=== PATIENT | male | born 1955 | race Caucasian/White ===

== ENCOUNTER 2017-01-05 07:38 | Inpatient (IN) | payer BC, OTHER ==
[~2017-01-05] VITALS: Ht 182.9 cm; Wt 87.5 kg
[2017-01-05] VITALS (10 sets, daily range): BP systolic 122–143; BP diastolic 54–88; PULSE 69–83; RESP 20–26; TEMP 99.1–102.5; O2SAT 93–98
[~2017-01-05 07:38] MED LIST: SIMV5TAB32 PO
[2017-01-05] MEDS ORDERED: SODIUM CHLOR 0.9% 1000 ML INJ 1,000 ML IV SCH (07:52)
[2017-01-05] MEDS ORDERED: SIMV5TAB3 PO (07:55)
--- NOTE | 2017-01-05 07:59 | PD ---
HPI Chief Complaint: General Weakness Time Seen by Provider: 07:44 Travel History International Travel<30 days: No Contact w/Intl Traveler<30days: No Traveled to known affect area: No History of Present Illness HPI The patient is a 61-year-old male who presents to the emergency department for abdominal pain and generalized weakness. The patient states he had a hernia repair, bilateral inguinal, one year ago by Dr. Ludin Cueva. The patient was doing well until 2 months ago when he helped a neighbor move a couch , then felt some discomfort in the groin. He notes decreasing strength over the last 2 months with some generalized weakness. He complains of abdominal pain that starts in the epigastrium and radiates to the bilateral inguinal area. He now notes pain radiating down the right and left leg to the knee. He states he has difficulty getting up and ambulating secondary to the pain. The pain is sharp, intermittent, worse with palpation. The patient states he saw a primary physician 2 weeks ago, Dr. Jamey Ventura, who checked the hernias and told him he was "normal". The patient now notes he has weakness of legs, states he has difficulty just sitting secondary to pain in the inguinal region. 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 He denies any fever. Symptoms are moderate, possibly exacerbated after lifting a couch 2 months ago, and there are no current alleviating factors. PFSH Past Medical History High Cholesterol: Yes Diminished Hearing: No Social History Alcohol Use: Yes (OCC) Tobacco Use: No Allergies-Medications (Allergen,Severity, Reaction): Coded Allergies: No Known Allergies (Verified Adverse Reaction, Unknown, 01/05/17) Reported Meds & Prescriptions Reported Meds & Active Scripts Active Reported Simvastatin 40 Mg Tab 40 Mg PO HS Multi-Vitamin Daily (Multiple Vitamin) 1 Tab Tab 1 Tab PO DAILY Aspirin EC (Aspirin) 81 Mg Tabdr 81 Mg PO DAILY Review of Systems Except as stated in HPI: all other systems reviewed are Neg General / Constitutional: No: Fever Cardiovascular: No: Chest Pain or Discomfort Respiratory: No: Shortness of Breath Gastrointestinal: Positive: Abdominal Pain, No: Nausea, Vomiting Genitourinary: No: Dysuria Musculoskeletal: Positive: Weakness Neurologic: Positive: Weakness Physical Exam Narrative GENERAL: Awake, alert, 61-year-old male appears his stated age and is in no acute respiratory distress. SKIN: Focused skin assessment warm/dry. HEAD: Atraumatic. Normocephalic. EYES: Pupils equal and round. Pupils are 3 mm bilateral and reactive. ENT: No nasal bleeding or discharge. Mucous membranes pink and moist. NECK: Trachea midline. No JVD. CARDIOVASCULAR: Regular rate and rhythm. No murmur appreciated. RESPIRATORY: No accessory muscle use. Clear to auscultation. Breath sounds equal bilaterally. GASTROINTESTINAL: Abdomen soft, diffusely tender, pump palpation the patient will jerk upright, when palpating the epigastrium and bilateral lower inguinal regions. Genitourinary: Tenderness of the bilateral inguinal area, circumcised phallus. Both testicles are descended. Patient would not allow me to do perform inguinal hernia exam secondary to pain. MUSCULOSKELETAL: No obvious deformities. No clubbing. No cyanosis. No edema. Loss of hair on the lower extremities inferior to the knee. Positive dorsalis pedal pulses. Strength with manager case management bilateral is 4/5. Extension of the elbows and flexion of the elbows is 4/5. Abduction of the shoulders is 4/5. Shoulder shrug is 5/5. Flexion of great toes bilateral/5. Plantar flexion bilaterals 4/ 5. Extension the knees is 4/5. Knee DTRs were 2+ to 3+. Ankle DTRs were absent. NEUROLOGICAL: Awake and alert. No obvious cranial nerve deficits. Motor grossly within normal limits. Normal speech. Patient is able to move all 4 extremities. Has generalized weakness. PSYCHIATRIC: Appropriate mood and affect; insight and judgment normal. Data Data Last Documented VS Vital Signs Date Time Temp Pulse Resp B/P (MAP) Pulse Ox O2 Delivery O2 Flow Rate FiO2 01/05/17 08:57 69 20 143/88 (106) 98 Nasal Cannula 2.00 01/05/17 07:43 99.1 Orders Orders Complete Blood Count With Diff (01/05/17 07:52) Comprehensive Metabolic Panel (01/05/17 07:52) Lipase (01/05/17 07:52) Lactic Acid (01/05/17 07:52) Urinalysis - C+S If Indicated (01/05/17 07:52) Ct Abd/Pel W/O Iv Contrast (01/05/17 07:52) Iv Access Insert/Monitor (01/05/17 07:52) Ecg Monitoring (01/05/17 07:52) Oximetry (01/05/17 07:52) Morphine Inj (Morphine Inj) (01/05/17 08:00) Ondansetron Inj (Zofran Inj) (01/05/17 08:00) Sodium Chlor 0.9% 1000 Ml Inj (Ns 1000 M (01/05/17 07:52) Sodium Chloride 0.9% Flush (Ns Flush) (01/05/17 08:00) Electrocardiogram (01/05/17 07:52) Act Partial Throm Time (Ptt) (01/05/17 07:59) Prothrombin Time / Inr (Pt) (01/05/17 07:59) Ct Brain W/O Iv Contrast(Rout) (01/05/17 ) Lumbar Puncture (01/05/17 ) Vital Signs (Adult) .On admission (01/05/17 08:24) Notify Radiology (01/05/17 08:24) Csf Cell Count + Differential (01/05/17 08:24) Glucose, Csf (01/05/17 08:24) Total Protein, Csf (01/05/17 08:24) Csf Culture And Gram Stain (01/05/17 08:24) Westergren Sedimentation Rate (01/05/17 08:44) Creatine Kinase (Cpk) (01/05/17 07:45) C-Reactive Protein (Crp) (01/05/17 07:45) Vital Signs (Adult) .As directed (01/05/17 10:22) Activity Bed Rest (01/05/17 10:22) Notify Radiology (01/05/17 10:22) ^ Encourage Fluids (01/05/17 10:22) Anticoagulant Alert (01/05/17 10:22) Diet Regular Basic (01/05/17 Lunch) Admit Order (Ed Use Only) (01/05/17 11:36) Consult Neurology (01/05/17 ) Labs Laboratory Tests Test 01/05/17 07:45 01/05/17 10:04 White Blood Count 9.5 TH/MM3 Red Blood Count 4.60 MIL/MM3 Hemoglobin 13.7 GM/DL Hematocrit 39.7 % Mean Corpuscular Volume 86.3 FL Mean Corpuscular Hemoglobin 29.9 PG Mean Corpuscular Hemoglobin Concent 34.6 % Red Cell Distribution Width 12.7 % Platelet Count 272 TH/MM3 Mean Platelet Volume 7.9 FL Neutrophils (%) (Auto) 84.0 % Lymphocytes (%) (Auto) 5.5 % Monocytes (%) (Auto) 9.4 % Eosinophils (%) (Auto) 0.8 % Basophils (%) (Auto) 0.3 % Neutrophils # (Auto) 8.0 TH/MM3 Lymphocytes # (Auto) 0.5 TH/MM3 Monocytes # (Auto) 0.9 TH/MM3 Eosinophils # (Auto) 0.1 TH/MM3 Basophils # (Auto) 0.0 TH/MM3 CBC Comment DIFF FINAL Differential Comment Erythrocyte Sedimentation Rate 81 mm/hr Prothrombin Time 11.4 SEC Prothromb Time International Ratio 1.0 RATIO Activated Partial Thromboplast Time 29.7 SEC Blood Urea Nitrogen 16 MG/DL Creatinine 1.08 MG/DL Random Glucose 155 MG/DL Total Protein 7.5 GM/DL Albumin 2.9 GM/DL Calcium Level 8.7 MG/DL Alkaline Phosphatase 270 U/L Aspartate Amino Transf (AST/SGOT) 63 U/L Alanine Aminotransferase (ALT/SGPT) 133 U/L Total Bilirubin 1.2 MG/DL Sodium Level 136 MEQ/L Potassium Level 3.9 MEQ/L Chloride Level 101 MEQ/L Carbon Dioxide Level 25.3 MEQ/L Anion Gap 10 MEQ/L Estimat Glomerular Filtration Rate 70 ML/MIN Lactic Acid Level 1.3 mmol/L Total Creatine Kinase 68 U/L C-Reactive Protein 17.00 MG/DL Lipase 166 U/L CSF Volume (Tube 1) 3.0 ML CSF Supernatant Color (tube 1) CLEAR CSF Gross Blood (Tube 1) TRACE CSF Volume (Tube 2) 3.0 ML CSF Supernatant Color (tube 2) CLEAR CSF Gross Blood (Tube 2) 0 CSF Volume (Tube 3) 3.0 ML CSF Supernatant Color (tube 3) CLEAR CSF Gross Blood (Tube 3) TRACE CSF Volume (Tube 4) 7.9 ML CSF Supernatant Color (tube 4) CLEAR CSF Gross Blood (Tube 4) 0 CSF WBC (Tube 4) 2 /MM3 CSF RBC (Tube 4) 59 /MM3 CSF Neutrophils 7 % CSF Lymphocytes 67 % CSF Monocytes 27 % CSF Glucose 64 MG/DL CSF Total Protein 51.4 MG/DL MDM Medical Decision Making Medical Screen Exam Complete: Yes Emergency Medical Condition: Yes Medical Record Reviewed: Yes Interpretation(s) EKG reveals normal sinus rhythm with a rate 81. No ischemic changes or ectopy noted. CT of the abdomen and pelvis reveals bibasilar atelectatic changes with fluid infiltrate. isolated gallstone in the gallbladder lumen. ct findings prior mesh repair possibly for bilateral inguinal hernia or lower and tear abdominal wall hernia. mild prominence of the prostate. CT of the brain reveals findings of an old lacunar type infarct in the anterior aspect the left external capsule. nothing acute. Differential Diagnosis Differential diagnoses includes hypokalemia, hyperkalemia, Guillain [place], neurologic disorder, inguinal hernia, somatization. Narrative Course IV was established, labs are drawn and sent, and the patient was placed on cardiac telemetry monitoring and continuous pulse oximetry monitoring. Electrolytes and lactic gas were sent to lab. CT of the abdomen and pelvis was performed. CT the brain was also obtained. I had a discussion with the states the patient received an influenza vaccination 2 weeks ago and his symptoms significantly progressed. The states the patient had difficulty sitting up in bed, was lying in bed all day yesterday, and was unable to dress himself this morning. The had to help the patient dressed himself. She also states that times the patient appears to have had some shortness of breath. Physical examination does reveal weakness of the upper and lower extremities, unsure if this is related to possible underlying myositis, polymyalgia rheumatica, versus neurologic disorder such as Guillain [place]. Therefore, interventional radiology was consult of her lumbar puncture to evaluate for pleocytosis I discussed the patient with the on-call neurologist, Dr. Hart, and 9:50 AM who will evaluate the patient in the emergency department after the patient returns from interventional radiology for the lumbar puncture. The patient's sedimentation rate was elevated at 81, CRP is elevated greater than 17. CK was 68, I doubt myositis. With elevated sedimentation rate and CRP , patient could have polymyalgia rheumatica versus Guillain [place]. The patient's protein on lumbar puncture was 51.4, slightly elevated. The patient will be evaluated by neurology and will be admitted. Physician Communication Physician Communication The on-call media relations director was paged for admission. I discussed the patient with Dr. Hampton under who agrees with admission to Dr. Small. Diagnosis Primary Impression: Generalized weakness Admitting Information Admitting Physician Requests: Admit Condition: Stable Kwasi Marcelino MD Jan 05, 2017 07:59
[2017-01-05] MEDS ORDERED: MORPHINE SULFATE 4 MG/ML INJ IV PUSH ONE (08:00)
[2017-01-05] MEDS ORDERED: ONDANSETRON HCL 4 MG/2 ML VIAL IVP ONE (08:00)
[2017-01-05 08:24] LABS: BASOPHIL % 0.3 % (0.0-2.0); EOSINOPHIL # 0.1 TH/MM3 (0-0.4); EOSINOPHIL % 0.8 % (0.0-4.0); HEMATOCRIT 39.7 % (39.0-51.0); HEMO FLAGS DIFF FINAL; LYMPH % 5.5 % (9.0-44.0); LYMPHOCYTE # 0.5 TH/MM3 (1.0-4.8); MEAN CELL VOLUME 86.3 FL (80.0-100.0); MEAN CORPUSCULAR HEMOGLOBIN 29.9 PG (27.0-34.0); MEAN CORPUSCULAR HGB CONC 34.6 % (32.0-36.0); MONO % 9.4 % (0.0-8.0); PLATELET COUNT 272 TH/MM3 (150-450); RED CELL DISTRIBUTION WIDTH 12.7 % (11.6-17.2); WHITE BLOOD COUNT 9.5 TH/MM3 (4.0-11.0)
[2017-01-05 08:34] LABS: ANION GAP 10 MEQ/L (5-15); AST (GOT) 63 U/L (15-37); BICARBONATE 25.3 MEQ/L (21.0-32.0); BLOOD UREA NITROGEN 16 MG/DL (7-18); CHLORIDE 101 MEQ/L (98-107); GLOMERULAR FILTRATION RATE 70 ML/MIN (>89); POTASSIUM 3.9 MEQ/L (3.5-5.1); SODIUM (NA) 136 MEQ/L (136-145)
[2017-01-05 08:38] LABS: ALKALINE PHOSPHATASE 270 U/L (45-117); ALT (GPT) 133 U/L (12-78); TOTAL BILIRUBIN ADULT 1.2 MG/DL (0.2-1.0)
[2017-01-05 08:41] LABS: APTT (PATIENT) 29.7 SEC (24.3-30.1); PROTHROMBIN TIME - PATIENT 11.4 SEC (9.8-11.6)
--- NOTE | 2017-01-05 08:51 | RADRPT ---
EXAM DATE/TIME: 01/05/2017 08:09 [facility] COMPARISON: No previous studies available for comparison. INDICATIONS : Lower abdominal pain ORAL CONTRAST: No oral contrast ingested. RADIATION DOSE: 10.52 CTDIvol (mGy) MEDICAL HISTORY : Gastroesophageal reflux disease. SURGICAL HISTORY : bilateral hernia repair ENCOUNTER: Initial ACUITY: 3 days PAIN SCALE: 5/10 LOCATION: Bilateral lower quadrant TECHNIQUE: Volumetric scanning of the abdomen and pelvis was performed. Using automated exposure control and ad justment of the mA and/or kV according to patient size, radiation dose was kept as low as reasonably achievable to obtain optimal diagnostic quality images. DICOM format image data is available electro nically for review and comparison. FINDINGS: LOWER LUNGS: Bibasilar atelectatic changes. No confluent infiltrate. LIVER: Homogeneous density without lesion. There is no dilation of the biliary tree. Single calcified galls tone identified near the gallbladder fundus. SPLEEN: Normal size without lesion. PANCREAS: Within normal limits. KIDNEYS: Normal in size and shape. There is no mass, stone, or hydronephrosis. ADRENAL GLANDS: Within normal limits. VASCULAR: There is no aortic aneurysm. BOWEL/MESENTERY: The stomach, small bowel, and colon demonstrate no acute abnormality. There is no free intraperitone al air or fluid. ABDOMINAL WALL: Findings of prior mesh repair presumably for lower anterior or inguinal hernia. RETROPERITONEUM: There is no lymphadenopathy. BLADDER: No wall thickening or mass. REPRODUCTIVE: Mild prominence of the prostate at 4.7 cm. INGUINAL: There is no lymphadenopathy or hernia. MUSCULOSKELETAL: Very mild dextroscoliosis of the thoracolumbar spine. CONCLUSION: 1. Bibasilar atelectatic changes with no confluent infiltrate. 2. Isolated gallstone in the gallbladder lumen. 3. CT findings no prior mesh repair possibly for bilateral inguinal hernia or lower anterior abdomina l wall hernia. 4. Mild prominence of the prostate Cristo Choudhury MD on January 05, 2017 at 8:39 Board Certified Radiologist. This report was verified electronically.
--- NOTE | 2017-01-05 08:53 | RADRPT ---
EXAM DATE/TIME: 01/05/2017 08:12 [facility] COMPARISON: No previous studies available for comparison. INDICATIONS : Weakness RADIATION DOSE: 50.69 CTDIvol (mGy) MEDICAL HISTORY : Gastroesophageal reflux disease. SURGICAL HISTORY : None. ENCOUNTER: Initial ACUITY: 3 days PAIN SCALE: 0/10 LOCATION: cranial TECHNIQUE: Multiple contiguous axial images were obtained of the head. Using automated exposure control and adj ustment of the mA and/or kV according to patient size, radiation dose was kept as low as reasonably a chievable to obtain optimal diagnostic quality images. DICOM format image data is available electro nically for review and comparison. FINDINGS: CEREBRUM: The ventricles are normal for age. Focal low density area in the anterior aspect of the left external capsule may represent old lacunar type infarct. No evidence of midline shift, mass lesion, hemorrhag e or acute infarction. No extra-axial fluid collections are seen. POSTERIOR FOSSA: The cerebellum and brainstem are intact. The 4th ventricle is midline. The cerebellopontine angle i s unremarkable. EXTRACRANIAL: The visualized portion of the orbits is intact. SKULL: The calvaria is intact. No evidence of skull fracture. CONCLUSION: 1. 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 2. Nothing acute. Cristo Choudhury MD on January 05, 2017 at 8:49 Board Certified Radiologist. This report was verified electronically.
[2017-01-05] MEDS ORDERED: ASPI81TA23 PO (08:59)
[2017-01-05] MEDS ORDERED: MULT-65 PO (08:59)
[2017-01-05] MEDS ORDERED: SIMV40TA PO (09:00)
[2017-01-05 10:08] LABS: CREATINE KINASE 68 U/L (39-308)
--- NOTE | 2017-01-05 10:25 | PD.RAD ---
Post Procedure Progress Note Pre Procedure Diagnosis: (1) Generalized weakness Post Procedure Diagnosis: (1) Generalized weakness Procedure Date: Jan 05, 2017 Supervising Radiologist: Cristo Choudhury Proceduralist/Assist: Dulce Aguirre, RT(R), Sandi Pace RT(R)(CV) Anesthesia: Local Plan of Activity Patient to Unit: Other (ED) Patient Condition: Good See PACS Report for procedural detail/treatment Spinal Procedure Lumbar Puncture L3-L4 Fluid Removal (CCs): 17 Fluid Description: Clear Puncture Time: 10:03 Findings: OP: 15 cmH2O Cristo Choudhury MD Jan 05, 2017 10:25
[2017-01-05 11:15] LABS: CSF LYMPHOCYTES 67 %; CSF MONOCYTES 27 %; CSF NEUTROPHILS 7 %; GROSS BLOOD TUBE #1 TRACE (0); SUPERNATE COLOR TUBE #1 CLEAR (CLEAR); SUPERNATE COLOR TUBE #2 CLEAR (CLEAR)
[2017-01-05 11:16] LABS: GROSS BLOOD TUBE #2 0 (0); GROSS BLOOD TUBE #3 TRACE (0); GROSS BLOOD TUBE #4 0 (0); SUPERNATE COLOR TUBE #3 CLEAR (CLEAR); SUPERNATE COLOR TUBE #4 CLEAR (CLEAR); VOLUME TUBE # 4 7.9 ML; WBC TUBE #4 2 /MM3 (0-10)
[2017-01-05] MEDS ORDERED: GLUCAGON 1 MG/ML VIAL OTHER PRN (11:45)
[2017-01-05] MEDS: INSULIN NovoLIN REGULAR SUPPLEMENTAL SCALE SQ SCH ×3 (11:45→23:45)
[2017-01-05] MEDS: RESP: ALBUTEROL 2.5 MG/IPRATROPIUM 0.5 MG NEB (SCH) INH (11:45)
[2017-01-05] MEDS ORDERED: DEXTROSE 50% IN WATER 50 ML VIAL(D50) IV PUSH PRN (11:45)
[2017-01-05] MEDS ORDERED: CHLORHEXIDINE GLUCONATE 2 % 1 PACK (2 CLOTHS) TOP PRN (11:45)
[2017-01-05] MEDS ORDERED: MISCELLANEOUS NURSING INFORMATION XX SCH (11:45)
[2017-01-05] MEDS: SODIUM CHLOR 0.9% 1000 ML INJ 1,000 ML IV SCH (11:59)
[2017-01-05] MEDS: PANTOPRAZOLE SODIUM 40 MG VIAL IV PUSH SCH (13:00)
--- NOTE | 2017-01-05 13:39 | MH ---
cc: APARNA OLIVEIRA M.D. DATE OF ADMISSION: 01/05/2017 DATE OF : 1955 HISTORY OF PRESENT ILLNESS The patient is a 61-year-old male with a past medical history of hyperlipidemia, status post hernia repair one year ago by Dr. Cueva. He presented to [facility] ED with generalized weakness, fatigue and abdominal pain for two months. He was doing well until two months ago when he helped a neighbor move a couch and then felt some discomfort in the groin. The patient also noted decreasing strength for the past two months. He complains of epigastric pain radiating to the bilateral inguinal area. The patient denies any nausea or vomiting. He reports feeling pain approximately 20 minutes after eating. He denies any change in appetite, however, the food that he eats does not taste good anymore. He reports a 20-25 pounds weight loss in two months as well. The patient denies any cough or constitutional symptoms. He has difficulty getting up and ambulating secondary to pain. He went to see his primary care doctor two weeks ago who checked his hernias and told him it was fine. 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 There is no history of any fever or leukocytosis. His laboratory data was significant for elevated C-reactive protein at 17.0. The lactic acid level measured at 1.3. A lumbar puncture was performed by interventional radiology which showed clear CSF, 2 wbc's, mild elevated total protein at 51.4, and normal CSF glucose level. A CT scan of the brain showed old lacunar type infarct, otherwise no acute intracranial findings. Due to abdominal pain a CT of the abdomen and pelvis was obtained which showed bibasilar atelectatic changes with no confluent infiltrates and isolated gallstone in the gallbladder lumen. He is currently on 2 liters of oxygen with saturation 97%. Blood pressure is 122/72. In the ER he was given morphine for pain, Zofran, and one liter bolus of normal saline. PAST MEDICAL HISTORY Hyperlipidemia. PAST SURGICAL HISTORY 1. Previous hernia repair one year ago. 2. Carpal tunnel surgery. 3. Multiple orthopedic surgeries. ALLERGIES No known drug allergies. MEDICATIONS Current medications: 1. Simvastatin. 2. Multivitamin. 3. Aspirin. FAMILY HISTORY Noncontributory. REVIEW OF SYSTEMS As per HPI. The rest of the review of systems unremarkable. PHYSICAL EXAMINATION GENERAL: A 61-year-old male lying in bed in no acute respiratory distress. VITAL SIGNS: Temperature 99.1, pulse 74, respiratory rate 20, blood pressure 122/72. Saturation 97% on 2 liters of oxygen. HEENT: Atraumatic, normocephalic. Pupils equal, round and reactive to light and accommodation. Extraocular muscles intact. Conjunctiva pink. Non-icteric sclera. Oral mucosa within normal. NECK: Supple. No JVD, adenopathy or thyromegaly. Trachea in the midline. CARDIOVASCULAR: Regular rate and rhythm. Normal S1, S2. No murmurs, rubs or gallops noted. PULMONARY: Bilateral equal entry. No rales or wheezing. ABDOMEN: Soft, nontender, no distention. Positive bowel sounds. EXTREMITIES: No cyanosis, clubbing or edema. NEUROLOGIC: No focal sensory deficit. Strength is 4/5 upper extremities, 5/5 lower extremities. Normal sensation. EKG Normal sinus rhythm, rate 81 beats per minute. IMAGING CT brain showed no acute intracranial findings. CT abdomen and pelvis showed bibasilar atelectatic changes with no confluent infiltrate; isolated gallstone in the gallbladder lumen. LABORATORY WBC 9.5, hemoglobin 13.7, hematocrit 39, platelet count 272. ESR 881. C-reactive protein 17. Total protein 68, alk phos 270, AST 263, ALT 133, total bilirubin 1.2, sodium 136, potassium 3.9, chloride 101, CO2 25, BUN 16, creatinine 1.08, glucose 155, lactic acid 1.3. INR 1, PT 11.4, PTT 29.7. Lumbar puncture showed clear CSF, 64 glucose, total protein 51.4, 2 wbc's, 59 rbc's. IMPRESSION 1. Generalized weakness. 2. Chronic abdominal pain. 3. Status post hernia repair. 4. Elevated liver enzymes. 5. History of hyperlipidemia. 6. Elevated ESR and C-reactive protein. PLAN/RECOMMENDATIONS 1. Monitor neuro status and avoid any sedatives. The patient is awake and alert. CT scan of the brain in the ED is negative for acute intracranial findings. Status post lumbar puncture by interventional radiology showed clear CSF, normal CSF glucose and mild elevated total protein at 51.4 with 2 wbc's. Follow-up on CSF culture. Neurology was consulted by ED. Will proceed with MRI of the spine to rule out myelopathy/acute process. Check ESR, JOSE and RF. 2. Continue with oxygen, maintain sats above 92%. 3. Bronchodilators in the form of DuoNeb q.6h. plus q.2h. p.r.n. for shortness of breath. 4. Monitor heart rate and blood pressure closely and maintain MAP greater than 65 mmHg. Lactic acid level measured at 1.3. Place on IV fluids, NS at 84 mL an hour. Hold simvastatin for now given elevated liver enzymes. 5. Monitor renal function, I's and O's, and electrolyte replacement per protocol. The patient was given one liter bolus of NS in the ED. Will continue with IV fluids as stated above. 6. Will hold off on antibiotics at this time as there is no evidence of any infectious process. Follow-up on CSF culture. Monitor for signs of infections which include fever and WBC. Follow-up on urinalysis. Check CXR. 7. Sliding scale insulin with Accu-Chek to maintain euglycemia. 8. Place on Protonix 40 mg daily for GI prophylaxis. 9. Monitor LFTs. Will check ultrasound of the liver. 10. Consult Dr. Cueva from general surgery for chronic abdominal pain. The patient is status post hernia repair about one year ago. 11. GI prophylaxis with Protonix 40 mg daily, and DVT prophylaxis with SCDs. Will hold off on chemical anticoagulation prophylaxis for now as the patient just had an LP done. Will start DVT prophylaxis in 24 hours. 12. Further recommendations will be based on the hospital course. MD ANTONIETA Bolden/VICTORIA /1:00 PM /1:18 PM LEO
--- NOTE | 2017-01-05 13:53 | RADRPT ---
EXAM DATE/TIME: 01/05/2017 12:36 [facility] COMPARISON: No previous studies available for comparison. INDICATIONS : Weakness. CONTRAST: 16 cc Omniscan (gadodiamide) IV MEDICAL HISTORY : Hypercholesterolemia. SURGICAL HISTORY : Inguinal hernia repair. Carpel tunnel sx., Foot sx. ENCOUNTER: Initial ACUITY: 1 week PAIN SCORE: 4/10 LOCATION: Bilateral lower back region. TECHNIQUE: Multiplanar, multisequence MRI examination of the cervical spine was performed. FINDINGS: VERTEBRAE: Normal vertebral body height. Homogeneous marrow signal. ALIGNMENT: No evidence of subluxation. CORD: Normal configuration and signal. POST FOSSA: The cerebellar tonsils are normal in position. POST-CONTRAST: There is subtle enhancement within the interspinous ligaments from C2-C5 in nonspecific fashion. \ C2-C3: The thecal sac has a normal configuration. There is no evidence of disc herniation or spinal canal stenosis. The neural foramina are patent bilaterally. C3-C4: The thecal sac has a normal configuration. There is no evidence of disc herniation or spinal canal s tenosis. The neural foramina are patent bilaterally. C4-C5: The thecal sac has a normal configuration. There is no evidence of disc herniation or spinal canal s tenosis. The neural foramina are patent bilaterally. C5-C6: The thecal sac has a normal configuration. There is no evidence of disc herniation or spinal canal s tenosis. The neural foramina are patent bilaterally. C6-C7: The thecal sac has a normal configuration. There is no evidence of disc herniation or spinal canal s tenosis. The neural foramina are patent bilaterally. C7-T1: The thecal sac has a normal configuration. There is no evidence of disc herniation or spinal canal s tenosis. The neural foramina are patent bilaterally. CONCLUSION: There is subtle enhancement interspinous ligaments between C2-C3, C3-C4, C4-C5. Controlled flexion e xtension films may be of benefit to exclude ligamentous instability. present as well. This can be s een with ligamentous injury. This would be very unusual place for infection. No other abnormalities appreciated. Tiago Cary MD FACR on January 05, 2017 at 13:45 Board Certified Radiologist. This report was verified electronically.
--- NOTE | 2017-01-05 14:01 | RADRPT ---
EXAM DATE/TIME: 01/05/2017 12:36 [facility] COMPARISON: No previous studies available for comparison. INDICATIONS : Weakness. CONTRAST: 16 cc Omniscan (gadodiamide) IV MEDICAL HISTORY : Hypercholesterolemia. SURGICAL HISTORY : Inguinal hernia repair. Carpal tunnel, Foot sx. ENCOUNTER: Initial ACUITY: 1 week PAIN SCORE: 4/10 LOCATION: Bilateral lower back. TECHNIQUE: Multiplanar multisequence MRI of the thoracic spine was performed. FINDINGS: VERTEBRA: Normal vertebral body height. Homogeneous marrow signal. ALIGNMENT: Normal. CORD: Normal position and configuration. POST CONTRAST: No abnormal areas of contrast enhancement seen. T1-T2: Normal. T2-T3: The thecal sac has a normal diameter. No evidence of disc bulge or protrusion. T3-T4: The thecal sac has a normal diameter. No evidence of disc bulge or protrusion. T4-T5: The thecal sac has a normal diameter. No evidence of disc bulge or protrusion. T5-T6: The thecal sac has a normal diameter. No evidence of disc bulge or protrusion. T6-T7: The thecal sac has a normal diameter. No evidence of disc bulge or protrusion. T7-T8: The thecal sac has a normal diameter. No evidence of disc bulge or protrusion. T8-T9: The thecal sac has a normal diameter. No evidence of disc bulge or protrusion. T9-T10: The thecal sac has a normal diameter. No evidence of disc bulge or protrusion. T10-T11: The thecal sac has a normal diameter. No evidence of disc bulge or protrusion. T11-T12: The thecal sac has a normal diameter. No evidence of disc bulge or protrusion. T12-L1: The thecal sac has a normal diameter. No evidence of disc bulge or protrusion. CONCLUSION: 1. Tiny bilateral pleural effusions and bibasilar consolidations. 2. Central canal is patent. No vertebral compression deformities. Javed Hawkins Jr., MD on January 05, 2017 at 13:55 Board Certified Radiologist. This report was verified electronically.
--- NOTE | 2017-01-05 14:10 | RADRPT ---
EXAM DATE/TIME: 01/05/2017 12:36 [facility] COMPARISON: No previous studies available for comparison. INDICATIONS : Weakness. CONTRAST: 16 cc Omniscan (gadodiamide) IV MEDICAL HISTORY : Hypercholesterolemia. SURGICAL HISTORY : Inguinal hernia repair. Carpel tunnel sx., Foot sx. ENCOUNTER: Initial ACUITY: 1 week PAIN SCORE: 4/10 LOCATION: Bilateral lower back region. TECHNIQUE: Multiplanar multisequence MRI of the lumbar spine was performed with and without contrast. FINDINGS: There is a transitional segment with partial lumbarization of the S1 level. VERTEBRAE: Homogeneous signal. Normal alignment. CONUS: Normal level and configuration. POST CONTRAST: No abnormal areas of contrast enhancement are seen. T12-L1: The thecal sac has a normal diameter. No evidence of disc bulge or protrusion. The neural foramina are patent bilaterally. L1-L2: The thecal sac has a normal diameter. No evidence of disc bulge or protrusion. The neural foramina are patent bilaterally. L2-L3: The thecal sac has a normal diameter. No evidence of disc bulge or protrusion. The neural foramina are patent bilaterally. L3-L4: The thecal sac has a normal diameter. No evidence of disc bulge or protrusion. The neural foramina are patent bilaterally. L4-L5: The thecal sac has a normal diameter. No evidence of disc bulge or protrusion. The neural foramina are patent bilaterally. L5-S1: The thecal sac has a normal diameter. No evidence of disc bulge or protrusion. The neural foramina are patent bilaterally. CONCLUSION: 1. No acute abnormality. Javed Hawkins Jr., MD on January 05, 2017 at 14:02 Board Certified Radiologist. This report was verified electronically.
[2017-01-05] MEDS ORDERED: GADODIAMIDE PF 287 MG/ML 5 ML VIAL (for RAD MRI) IVCONTRAST ONE (14:20)
--- NOTE | 2017-01-05 15:09 | RADRPT ---
EXAM DATE/TIME: 01/05/2017 13:55 [facility] COMPARISON: No previous studies available for comparison. INDICATIONS : Increased lab values. MEDICAL HISTORY : Hypercholesterolemia. Gastroesophageal reflux disease. SURGICAL HISTORY : Hernia repair. ENCOUNTER: Initial ACUITY: 2 months PAIN SCORE: 4/10 LOCATION: Bilateral upper quadrant MEASUREMENTS: LIVER: 18.2 cm length COMMON DUCT: Non-visualized RIGHT KIDNEY: 13.1 x 5.3 x 5.2 cm SPLEEN: 14.3 cm length FINDINGS: LIVER: The liver appears mildly enlarged. There is heterogeneous echotexture. No mass is seen. No intrahepat ic biliary ductal dilation is identified. COMMON DUCT: No intraluminal mass or stone visualized. GALLBLADDER: The examination demonstrates a 3 mm cholesterol polyp adherent to the gallbladder wall. PANCREAS: The visualized portions are within normal limits. RIGHT KIDNEY: No hydronephrosis, stone or mass. SPLEEN: There is splenomegaly. The echotexture the spleen is within normal limits. CONCLUSION: 1. Hepatosplenomegaly. 2. Heterogeneous echotexture of the liver but no focal mass seen. No significant biliary ductal dilat ion identified. 3. 3 mm cholesterol polyp adherent to the gallbladder wall. Mike Cary MD on January 05, 2017 at 15:06 Board Certified Radiologist. This report was verified electronically.
--- NOTE | 2017-01-05 16:11 | PD.CONS ---
HPI Service General surgery Consult Requested By Dr. Hampton Reason for Consult Abdominal pain, history of ventral hernia repair Primary Care Physician Jamey Ventura MD History of Present Illness The patient is a 61-year-old male who complains of severe periumbilical abdominal pain radiating to the mid and bilateral lower back, and bilateral groin pain radiating to the scrotum. The patient has a history of laparoscopic bilateral inguinal hernia repair with mesh by Dr. Cueva about 1 year ago. He did well postoperatively until 2 months ago when he was lifting a couch and felt a tear in the right groin. Ever since that time, he has had the symptoms as listed above. He has also had chills. He reports 25 pound weight loss although he has been eating and is not trying to lose weight. He has had malaise and generalized weakness to the point where yesterday he passed out in the shower until his found him. The pain radiates down both legs. He has had normal bowel movements and denies nausea or vomiting. He has been unable to work for the last week. He is usually very active. On evaluation he was noted to have left shift on CBC, elevated CRP, and elevated sedimentation rate. LFTs are elevated. CT abdomen and pelvis shows gallstone. A lumbar puncture as well as total spine MRI and head CT has been performed. Review of Systems Constitutional: COMPLAINS OF: Diaphoretic episodes, Fatigue, Fever, Weight loss , Chills Eyes: DENIES: Eye inflammation, Eye pain Respiratory: DENIES: Cough, Shortness of breath Cardiovascular: COMPLAINS OF: Syncope, DENIES: Chest pain, Palpitations Gastrointestinal: COMPLAINS OF: Abdominal pain, DENIES: Nausea, Vomiting Genitourinary: COMPLAINS OF: Testicular Pain Musculoskeletal: COMPLAINS OF: Muscle aches Integumentary: DENIES: Pruritus, Rash Neurologic: DENIES: Localized weakness, Seizures Past Family Social History Past Medical History Hyperlipidemia Past Surgical History Bilateral left Inguinal hernia with mesh Carpal tunnel Orthopedic surgeries Reported Medications Reported Meds & Active Scripts Active Reported Simvastatin 40 Mg Tab 40 Mg PO HS Multi-Vitamin Daily (Multiple Vitamin) 1 Tab Tab 1 Tab PO DAILY Aspirin EC (Aspirin) 81 Mg Tabdr 81 Mg PO DAILY Allergies: Coded Allergies: No Known Allergies (Verified Allergy, Unknown, 01/05/17) Active Ordered Medications Current Medications Medications (Trade) Dose Ordered Sig/Karishma Route Start Time Stop Time Status Last Admin (NS Flush) 2 ml UNSCH PRN IV FLUSH 01/05/17 08:00 (Duoneb Neb) 1 ampule Q6HR NEB INH 01/05/17 11:45 (Duoneb Neb) 1 ampule Q2HR NEB PRN INH 01/05/17 11:45 Miscellaneous Information 1 Q361D XX 01/05/17 11:45 (Chlorhexidine 2% Cloth) 3 pack Taper DAILY@04 TOP 01/06/17 04:00 01/02/18 03:59 (Chlorhexidine 2% Cloth) 3 pack UNSCH PRN TOP 01/05/17 11:45 Sodium Chloride 1,000 ml @ 84 mls/hr [id number] IV 01/05/17 11:45 01/05/17 11:59 (D50w (Vial) Inj) 50 ml UNSCH PRN IV PUSH 01/05/17 11:45 (Glucagon Inj) 1 mg UNSCH PRN OTHER 01/05/17 11:45 (NovoLIN R SUPPLEMENTAL SCALE) 1 Q6H SQ 01/05/17 11:45 (Protonix Inj) 40 mg Q24H IV PUSH 01/05/17 13:00 Family History Noncontributory Social History Denies IV use. Remote history of having tattoos. No alcohol or tobacco use. 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 Physical Exam Vital Signs Vital Signs Date Time Temp Pulse Resp B/P (MAP) Pulse Ox O2 Delivery O2 Flow Rate FiO2 01/05/17 12:39 01/05/17 11:57 74 20 122/72 (89) 97 Nasal Cannula 2.00 01/05/17 08:57 69 20 143/88 (106) 98 Nasal Cannula 2.00 01/05/17 07:57 20 95 Nasal Cannula 2.00 01/05/17 07:49 80 20 96 Nasal Cannula 2.00 01/05/17 07:43 99.1 83 20 143/83 (103) 93 Physical Exam GENERAL: Awake and alert. No acute distress. Cooperative. HEAD: Normocephalic. Atraumatic. EYES: Pupils equal round and reactive to light bilaterally. No scleral icterus. ENT: Moist oral mucosa. NECK: Trachea midline. CHEST: Lungs clear to auscultation bilaterally with no wheezing or rhonchi. No respiratory distress. CARDIOVASCULAR: Regular rate and rhythm. ABDOMEN: Exquisite tenderness to palpation in periumbilical and bilateral lower abdomen and bilateral groins. Seems to be hypersensitive in these areas. I don 't think this is true peritonitis. No guarding. No hernias. Nondistended EXTREMITIES: No cyanosis or edema. SKIN: Warm, dry, nonjaundiced. Laboratory Laboratory Tests Test 01/05/17 07:45 01/05/17 10:04 01/05/17 15:00 White Blood Count 9.5 Red Blood Count 4.60 Hemoglobin 13.7 Hematocrit 39.7 Mean Corpuscular Volume 86.3 Mean Corpuscular Hemoglobin 29.9 Mean Corpuscular Hemoglobin Concent 34.6 Red Cell Distribution Width 12.7 Platelet Count 272 Mean Platelet Volume 7.9 Neutrophils (%) (Auto) 84.0 Lymphocytes (%) (Auto) 5.5 Monocytes (%) (Auto) 9.4 Eosinophils (%) (Auto) 0.8 Basophils (%) (Auto) 0.3 Neutrophils # (Auto) 8.0 Lymphocytes # (Auto) 0.5 Monocytes # (Auto) 0.9 Eosinophils # (Auto) 0.1 Basophils # (Auto) 0.0 CBC Comment DIFF FINAL Differential Comment Erythrocyte Sedimentation Rate 81 Prothrombin Time 11.4 Prothromb Time International Ratio 1.0 Activated Partial Thromboplast Time 29.7 Blood Urea Nitrogen 16 Creatinine 1.08 Random Glucose 155 Total Protein 7.5 Albumin 2.9 Calcium Level 8.7 Alkaline Phosphatase 270 Aspartate Amino Transf (AST/SGOT) 63 Alanine Aminotransferase (ALT/SGPT) 133 Total Bilirubin 1.2 Sodium Level 136 Potassium Level 3.9 Chloride Level 101 Carbon Dioxide Level 25.3 Anion Gap 10 Estimat Glomerular Filtration Rate 70 Lactic Acid Level 1.3 Total Creatine Kinase 68 C-Reactive Protein 17.00 Lipase 166 CSF Volume (Tube 1) 3.0 CSF Supernatant Color (tube 1) CLEAR CSF Gross Blood (Tube 1) TRACE CSF Volume (Tube 2) 3.0 CSF Supernatant Color (tube 2) CLEAR CSF Gross Blood (Tube 2) 0 CSF Volume (Tube 3) 3.0 CSF Supernatant Color (tube 3) CLEAR CSF Gross Blood (Tube 3) TRACE CSF Volume (Tube 4) 7.9 CSF Supernatant Color (tube 4) CLEAR CSF Gross Blood (Tube 4) 0 CSF WBC (Tube 4) 2 CSF RBC (Tube 4) 59 CSF Neutrophils 7 CSF Lymphocytes 67 CSF Monocytes 27 CSF Glucose 64 CSF Total Protein 51.4 Date/Time Source Procedure Growth Status 01/05/17 10:04 Cerebral Spinal Fluid Lumbar Puncture Gram Stain Pending Received 01/05/17 10:04 Cerebral Spinal Fluid Lumbar Puncture CSF Culture Pending Received Result Diagram: 01/05/17 0745 01/05/17 0745 Imaging Last Impressions Abdomen/Pelvis CT 01/05/17 0752 Signed Impressions: Service Date/Time: Thursday, January 05, 2017 08:09 - CONCLUSION: 1. Bibasilar atelectatic changes with no confluent infiltrate. 2. Isolated gallstone in the gallbladder lumen. 3. CT findings no prior mesh repair possibly for bilateral inguinal hernia or lower anterior abdominal wall hernia. 4. Mild prominence of the prostate Cristo Choudhury MD Thoracic Spine MRI 01/05/17 0000 Signed Impressions: Service Date/Time: Thursday, January 05, 2017 12:36 - CONCLUSION: 1. Tiny bilateral pleural effusions and bibasilar consolidations. 2. Central canal is patent. No vertebral compression deformities. Javed Hawkins Jr., MD Lumbar Spine MRI 01/05/17 0000 Signed Impressions: Service Date/Time: Thursday, January 05, 2017 12:36 - CONCLUSION: 1. No acute abnormality. Javed Hawkins Jr., MD Liver Ultrasound 01/05/17 0000 Signed Impressions: Service Date/Time: Thursday, January 05, 2017 13:55 - CONCLUSION: 1. Hepatosplenomegaly. 2. Heterogeneous echotexture of the liver but no focal mass seen. No significant biliary ductal dilation identified. 3. 3 mm cholesterol polyp adherent to the gallbladder wall. Mike Cary MD Head CT 01/05/17 0000 Signed Impressions: Service Date/Time: Thursday, January 05, 2017 08:12 - CONCLUSION: 1. 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 2. Nothing acute. Cristo Choudhury MD Cervical Spine MRI 01/05/17 0000 Signed Impressions: Service Date/Time: Thursday, January 05, 2017 12:36 - CONCLUSION: There is subtle enhancement interspinous ligaments between C2-C3, C3-C4, C4-C5. Controlled flexion extension films may be of benefit to exclude ligamentous instability. present as well. This can be seen with ligamentous injury. This would be very unusual place for infection. No other abnormalities appreciated. Tiago Cary MD FACR Assessment and Plan Assessment and Plan 61-year-old male with abdominal and bilateral inguinal pain, chills, weight loss , malaise. History of bilateral laparoscopic inguinal hernia repair with mesh one year ago. Elevated left shift, CRP,ESR, LFTS. I ordered a gallbladder ultrasound which was unremarkable apart from a small polyp. Check hepatitis panel. I'm unsure why he has this much tenderness in the lower abdomen. Some concern for mesh infection although there is no fluid collection on CT which would be uncommon. I'm going to order a CT with IV and oral contrast as the first CT was noncontrasted. It seems most likely that the hernia repair is not related to his current symptoms. Wade Helms MD Jan 05, 2017 16:11
--- NOTE | 2017-01-05 16:22 | RADRPT ---
EXAM DATE/TIME: 01/05/2017 15:07 [facility] COMPARISON: No previous studies available for comparison. INDICATIONS : R/o pneumonia. MEDICAL HISTORY : Hypercholesterolemia. SURGICAL HISTORY : None. ENCOUNTER: Initial ACUITY: 1 day PAIN SCORE: 0/10 LOCATION: Bilateral chest FINDINGS: A single view of the chest demonstrates the lungs to be symmetrically aerated without evidence of mas s, infiltrate or effusion. Mild elevation of left hemidiaphragm. The cardiomediastinal contours are u nremarkable. Osseous structures are intact. CONCLUSION: No acute disease. Javed Hawkins Jr., MD on January 05, 2017 at 16:20 Board Certified Radiologist. This report was verified electronically.
[2017-01-05 16:24] LABS: RHEUMATOID FACTOR TRIGGER LESS THAN 10.0 IU/ML (0.0-14.9)
[2017-01-05] MEDS ORDERED: DIATRIZOATE MEGLUM/DIATRIZOATE SOD 9 ML CUP PO ONE (17:45)
[2017-01-05 18:18] LABS: BLOOD, URINE NEG (NEG); COMMENT (UR) CULT NOT INDICATED; CULTURE IF INDICATED CULT NOT INDICATED; GLUCOSE,URINE NEG (NEG); KETONE, URINE NEG (NEG); NITRITE,URINE NEG (NEG); URINE COLOR YELLOW (YELLW/STRAW)
--- NOTE | 2017-01-05 19:07 | EKG ---
Date Performed: 01/05/2017 Time Performed: 08:00:43 PTAGE: 61 years EKG: Sinus rhythm NORMAL ECG NO PREVIOUS TRACING DOCTOR: Justice Angulo Interpretating Date/Time 01/05/2017 19:06:07
[2017-01-05] MEDS ORDERED: ACETAMINOPHEN 1000 MG/100 ML 100 ML IV ONE (20:30)
[2017-01-05] MEDS ORDERED: IOHEXOL 350 MG/ML 10 ML VIAL (for RAD DIAG) IVCONTRAST ONE (21:20)
[2017-01-05] MEDS: MORPHINE SULFATE 2 MG/ML INJ IV PUSH PRN (21:54)
--- NOTE | 2017-01-05 22:51 | RADRPT ---
EXAM DATE/TIME: 01/05/2017 21:17 [facility] COMPARISON: No previous studies available for comparison. INDICATIONS : Medial abdominal pain. IV CONTRAST: 90 cc Omnipaque 350 (iohexol) IV ORAL CONTRAST: Prescribed oral contrast ingested. RADIATION DOSE: 13.17 CTDIvol (mGy) MEDICAL HISTORY : Gastroesophageal reflux disease. Hernia. SURGICAL HISTORY : Hernia repair. ENCOUNTER: Initial ACUITY: 1 day PAIN SCALE: 7/10 LOCATION: Medial abdomen TECHNIQUE: Volumetric scanning of the abdomen and pelvis was performed. Using automated exposure control and adjustment of the mA and/or kV according to patient size, radiation dose was kept as low as reasonably achievable to obtain optimal diagnostic quality images. DICOM format image data is av ailable electronically for review and comparison. FINDINGS: The liver, spleen, pancreas, adrenal glands and kidneys appear normal. The gallbladder is not distended. There does appear to be a small calcified gallstone seen in the gallbladder fundus . The bowel is unremarkable. The patient hernia mesh seen at the undersurface of the anterior abdom inal wall. There is some mild induration around the hernia mesh which likely is from scarring. No f ocal fluid collection is seen. No recurrent hernia is seen. Prostatic calcifications are seen. Othe rwise the pelvic structures appear grossly intact. There are calcifications seen in the pelvis likel y related to phleboliths. Distal ureteral stones are not present. There is increased density identified at the posterior lower lobes bilaterally. The bony structures are grossly intact. CONCLUSION: 1. No definite acute abnormality is seen. 2. Hernia mesh is seen at the lower anterior abdominal wall with some minimal surrounding induration which may represent postoperative change. A fluid collection is not seen. 3. Suspected small calcified gallstone without distension of the gallbladder. 4. Bibasilar areas of suspected atelectasis or consolidation. Geovanny Vieira MD on January 05, 2017 at 22:23 Board Certified Radiologist. This report was verified electronically.
[2017-01-06] VITALS (12 sets, daily range): BP systolic 111–158; BP diastolic 54–94; PULSE 53–91; RESP 17–26; TEMP 98.8–103; O2SAT 94–98
[2017-01-06] MEDS: CHLORHEXIDINE GLUCONATE 2 % 1 PACK (2 CLOTHS) TOP SCH (04:00)
[2017-01-06] MEDS: RESP: ALBUTEROL 2.5 MG/IPRATROPIUM 0.5 MG NEB (SCH) INH ×4 (04:02→20:43)
[2017-01-06] MEDS: SODIUM CHLOR 0.9% 1000 ML INJ 1,000 ML IV SCH (05:29)
[2017-01-06] MEDS: INSULIN NovoLIN REGULAR SUPPLEMENTAL SCALE SQ SCH (05:29)
[2017-01-06 05:32] LABS: AUTOMATED NEUTROPHIL # 5.5 TH/MM3 (1.8-7.7); BASOPHIL % 0.7 % (0.0-2.0); EOSINOPHIL # 0.2 TH/MM3 (0-0.4); EOSINOPHIL % 2.6 % (0.0-4.0); HEMATOCRIT 39.7 % (39.0-51.0); HEMO FLAGS DIFF FINAL; LYMPH % 13.1 % (9.0-44.0); MEAN CORPUSCULAR HEMOGLOBIN 30.2 PG (27.0-34.0); MEAN CORPUSCULAR HGB CONC 35.1 % (32.0-36.0); MONO % 11.1 % (0.0-8.0); NEUT % 72.5 % (16.0-70.0); PLATELET COUNT 261 TH/MM3 (150-450); RED BLOOD COUNT 4.62 MIL/MM3 (4.50-5.90); RED CELL DISTRIBUTION WIDTH 12.7 % (11.6-17.2); WHITE BLOOD COUNT 7.5 TH/MM3 (4.0-11.0)
[2017-01-06 05:51] LABS: ALT (GPT) 125 U/L (12-78); ANION GAP 9 MEQ/L (5-15); AST (GOT) 52 U/L (15-37); BICARBONATE 28.1 MEQ/L (21.0-32.0); BLOOD UREA NITROGEN 13 MG/DL (7-18); CHLORIDE 99 MEQ/L (98-107); GLOMERULAR FILTRATION RATE 92 ML/MIN (>89); POTASSIUM 3.8 MEQ/L (3.5-5.1); SODIUM (NA) 136 MEQ/L (136-145)
[2017-01-06 05:54] LABS: ALKALINE PHOSPHATASE 305 U/L (45-117); TOTAL BILIRUBIN ADULT 1.4 MG/DL (0.2-1.0)
--- NOTE | 2017-01-06 07:42 | HHI.PR ---
Subjective Subjective Notes Repeat CT a/p with contrast yesterday with no major findings. He c/o headache and pain behind right knee. Abdominal pain present when he moves. Objective Vitals/I&O Vital Signs Date Time Temp Pulse Resp B/P (MAP) Pulse Ox O2 Delivery O2 Flow Rate FiO2 01/06/17 06:00 63 01/06/17 04:00 98.8 21 139/77 (97) 94 01/05/17 19:12 Nasal Cannula 2.00 Labs Laboratory Tests Test 01/05/17 07:45 01/05/17 10:04 01/05/17 15:00 01/05/17 17:16 White Blood Count 9.5 Red Blood Count 4.60 Hemoglobin 13.7 Hematocrit 39.7 Mean Corpuscular Volume 86.3 Mean Corpuscular Hemoglobin 29.9 Mean Corpuscular Hemoglobin Concent 34.6 Red Cell Distribution Width 12.7 Platelet Count 272 Mean Platelet Volume 7.9 Neutrophils (%) (Auto) 84.0 Lymphocytes (%) (Auto) 5.5 Monocytes (%) (Auto) 9.4 Eosinophils (%) (Auto) 0.8 Basophils (%) (Auto) 0.3 Neutrophils # (Auto) 8.0 Lymphocytes # (Auto) 0.5 Monocytes # (Auto) 0.9 Eosinophils # (Auto) 0.1 Basophils # (Auto) 0.0 CBC Comment DIFF FINAL Differential Comment Erythrocyte Sedimentation Rate 81 77 Prothrombin Time 11.4 Prothromb Time International Ratio 1.0 Activated Partial Thromboplast Time 29.7 Blood Urea Nitrogen 16 Creatinine 1.08 Random Glucose 155 Total Protein 7.5 Albumin 2.9 Calcium Level 8.7 Alkaline Phosphatase 270 Aspartate Amino Transf (AST/SGOT) 63 Alanine Aminotransferase (ALT/SGPT) 133 Total Bilirubin 1.2 Sodium Level 136 Potassium Level 3.9 Chloride Level 101 Carbon Dioxide Level 25.3 Anion Gap 10 Estimat Glomerular Filtration Rate 70 Lactic Acid Level 1.3 Total Creatine Kinase 68 C-Reactive Protein 17.00 Lipase 166 Thyroid Stimulating Hormone 3rd Gen 1.080 Rheumatoid Factor Screen NEGATIVE Rheumatoid Factor Titer CSF Volume (Tube 1) 3.0 CSF Supernatant Color (tube 1) CLEAR CSF Gross Blood (Tube 1) TRACE CSF Volume (Tube 2) 3.0 CSF Supernatant Color (tube 2) CLEAR CSF Gross Blood (Tube 2) 0 CSF Volume (Tube 3) 3.0 CSF Supernatant Color (tube 3) CLEAR CSF Gross Blood (Tube 3) TRACE CSF Volume (Tube 4) 7.9 CSF Supernatant Color (tube 4) CLEAR CSF Gross Blood (Tube 4) 0 CSF WBC (Tube 4) 2 CSF RBC (Tube 4) 59 CSF Neutrophils 7 CSF Lymphocytes 67 CSF Monocytes 27 CSF Glucose 64 CSF Total Protein 51.4 Urine Color YELLOW Urine Turbidity CLEAR Urine pH 6.0 Urine Specific [place] 1.012 Urine Protein NEG Urine Glucose (UA) NEG Urine Ketones NEG Urine Occult Blood NEG Urine Nitrite NEG Urine Bilirubin NEG Urine Urobilinogen LESS THAN 2.0 Urine Leukocyte Esterase NEG Urine RBC 2 Urine WBC 2 Microscopic Urinalysis Comment CULT NOT INDICATED Nasal Screen MRSA (PCR) MRSA NOT DETECTED Test 01/06/17 04:52 White Blood Count 7.5 Red Blood Count 4.62 Hemoglobin 13.9 Hematocrit 39.7 Mean Corpuscular Volume 86.0 Mean Corpuscular Hemoglobin 30.2 Mean Corpuscular Hemoglobin Concent 35.1 Red Cell Distribution Width 12.7 Platelet Count 261 Mean Platelet Volume 7.9 Neutrophils (%) (Auto) 72.5 Lymphocytes (%) (Auto) 13.1 Monocytes (%) (Auto) 11.1 Eosinophils (%) (Auto) 2.6 Basophils (%) (Auto) 0.7 Neutrophils # (Auto) 5.5 Lymphocytes # (Auto) 1.0 Monocytes # (Auto) 0.8 Eosinophils # (Auto) 0.2 Basophils # (Auto) 0.0 CBC Comment DIFF FINAL Differential Comment Blood Urea Nitrogen 13 Creatinine 0.85 Random Glucose 97 Total Protein 7.8 Albumin 2.9 Calcium Level 9.1 Alkaline Phosphatase 305 Aspartate Amino Transf (AST/SGOT) 52 Alanine Aminotransferase (ALT/SGPT) 125 Total Bilirubin 1.4 Sodium Level 136 Potassium Level 3.8 Chloride Level 99 Carbon Dioxide Level 28.1 Anion Gap 9 Estimat Glomerular Filtration Rate 92 Date/Time Source Procedure Growth Status 01/06/17 04:52 Blood Peripheral Aerobic Blood Culture Pending Received 01/06/17 04:52 Blood Peripheral Anaerobic Blood Culture Pending Received 01/05/17 10:04 Cerebral Spinal Fluid Lumbar Puncture Gram Stain Pending Received 01/05/17 10:04 Cerebral Spinal Fluid Lumbar Puncture CSF Culture Pending Received Radiology Last Impressions Abdomen/Pelvis CT 01/05/17 0752 Signed Impressions: Service Date/Time: Thursday, January 05, 2017 08:09 - CONCLUSION: 1. Bibasilar atelectatic changes with no confluent infiltrate. 2. Isolated gallstone in the gallbladder lumen. 3. CT findings no prior mesh repair possibly for bilateral inguinal hernia or lower anterior abdominal wall hernia. 4. Mild prominence of the prostate Cristo Choudhury MD Thoracic Spine MRI 01/05/17 0000 Signed Impressions: Service Date/Time: Thursday, January 05, 2017 12:36 - CONCLUSION: 1. Tiny bilateral pleural effusions and bibasilar consolidations. 2. Central canal is patent. No vertebral compression deformities. Javed Hawkins Jr., MD Lumbar Spine MRI 01/05/17 0000 Signed Impressions: Service Date/Time: Thursday, January 05, 2017 12:36 - CONCLUSION: 1. No acute abnormality. Javed Hawkins Jr., MD Liver Ultrasound 01/05/17 0000 Signed Impressions: Service Date/Time: Thursday, January 05, 2017 13:55 - CONCLUSION: 1. Hepatosplenomegaly. 2. Heterogeneous echotexture of the liver but no focal mass seen. No significant biliary ductal dilation identified. 3. 3 mm cholesterol polyp adherent to the gallbladder wall. Mike Cary MD Head CT 01/05/17 0000 Signed Impressions: Service Date/Time: Thursday, January 05, 2017 08:12 - CONCLUSION: 1. 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 2. Nothing acute. Cristo Choudhury MD Cervical Spine MRI 01/05/17 0000 Signed Impressions: Service Date/Time: Thursday, January 05, 2017 12:36 - CONCLUSION: There is subtle enhancement interspinous ligaments between C2-C3, C3-C4, C4-C5. Controlled flexion extension films may be of benefit to exclude ligamentous instability. present as well. This can be seen with ligamentous injury. This would be very unusual place for infection. No other abnormalities appreciated. Tiago Cary MD FACR Narrative Exam NAD nonlabored breathing Abd: moderate breana lower abd ttp A/P Assessment and Plan 61 yo M with lower abd and groin pain, multiple constitutional symptoms. Repeat CT a/p unremarkable. Will add ibuprofen for headache. Hepatitis panel is pending. I doubt this is due to mesh or post op problem. ScooterWade matamoros MD Jan 06, 2017 07:42
--- NOTE | 2017-01-06 07:53 | MB ---
cc: RONAN DUNN MD DATE OF CONSULTATION 01/05/2017 REASON FOR CONSULTATION Lower extremity weakness (weakness polymyalgia rheumatica versus GB). HISTORY OF PRESENT ILLNESS Mr. Peace is a 61-year-old male who presented to the [facility] emergency room with his who is at the bedside because of generalized weakness, upper and lower extremity, lower extremity greater than the upper, with burning, "searing pain" of the anterior thigh muscles, mid abdominal pain and tingling sensation bilateral lower extremities. The patient has A past medical history of hyperlipidemia, status post hernia repair one year ago. The patient complains of abdominal pain, fatigue and weakness for two months. The at the bedside asked whether she can, "face time with her daughter who is a nurse, I agreed. Thus, the daughter was face timing during the encounter. The patient stated that he was well until two months ago when he helped a neighbor move a couch and then felt some discomfort in his groin with decreasing strength of the bilateral lower extremities. He also complains of upper abdominal pain radiating to the inguinal area. The patient denies nausea or vomiting. He also reports 20-25 pound weight loss. He has difficulty ambulating due to the pain in the back and lower extremities. 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 The patient had received the flu vaccine two weeks prior to the presentation. In the emergency room, the patient's treating MD suspected Guillain-[place] syndrome , thus an LP was done with CO2 pressure of 15, unremarkable findings, mild elevated protein, however, due to traumatic tap. REVIEW OF SYSTEMS A 12-point review of systems is negative except for what is stated in the HPI. PAST MEDICAL HISTORY Hyperlipidemia PAST SURGICAL HISTORY 1. Previous hernia repair one month ago. 2. Carpal tunnel surgery 3. Multiple orthopedic surgeries. ALLERGIES No known allergies. MEDICATIONS 1. Simvastatin 2. Multivitamin 3. Aspirin FAMILY HISTORY Noncontributory PHYSICAL EXAMINATION GENERAL: Awake, good historian in moderate distress due to pain. HEENT: Atraumatic, normocephalic. Intact hearing and intact vision. NECK: Supple. No signs of meningeal irritation. CARDIOVASCULAR: Regular rate and rhythm. RESPIRATORY: Bilateral equal air entry. No wheezes. ABDOMEN: Tender to touch, questionable guarding, no rebound tenderness. EXTREMITIES: No cyanosis, clubbing or edema. NEUROLOGIC: Awake, alert, oriented to time, person and place. No dysarthria or dysphagia. Intact external ocular motility. Pupils are equally reacting to light and accommodation. No nystagmus. No facial asymmetry. Motor system examination 5/5 bilateral symmetrical. Mild give-way due to pain. Reflexes 1+ upper extremities, 2+ bilateral knees, sluggish ankle reflexes, very cold extremities. Plantars are bilaterally downgoing. Intact [id number] and intact sensation. PSYCHIATRIC: Cooperative, anxious. No delusions or hallucinations. DIAGNOSTIC TESTS - EKG normal sinus rhythm. LABORATORY DATA - White BC 9.5, hemoglobin 13.7, platelet 272, sed rate 81. Sodium 136, potassium 3.9, anion gap 10, BUN 16, creatinine 1.08, random glucose 155, calcium 8.7. TSB 1.2, AST 63, ALT 133, alkaline phosphatase 270, C-reactive protein 17, albumin 2.9, TSH 1.02, rheumatoid factor negative. - CSF analysis revealed RBC 59, white blood cells 2, protein 51.4, INR 1. DIAGNOSTICS IMAGING - Head CT scan without contrast findings of old lacunar infarct in the anterior aspect of the left external capsule. - Cervical spine MRI revealed several enhancement interspinous ligament between C2-C3, C3-C4 and C4-C5, controlled flexion extension films may be of benefit to exclude ligamentous instability. This can represent ligamental injury, unusual place for infection. No other abnormalities appreciated. - Lumbar spine MRI with no acute intracranial abnormality. - Thoracic spine MRI, tiny bilateral pleural effusion, bibasilar consolidation central canal spaces. No vertebral compression deformity. - Abdomen/pelvis CT isolated gallstone in the gallbladder. DIAGNOSTIC IMPRESSION 1. Generalized weakness, low back pain and bilateral lower extremity tingling. Unremarkable neurologic examination. Currently no evidence of GBS given preserved reflexes, normal CSF, however, there are some Guillain variants of the axonal tract that may have preserved reflexes. 2. Chronic abdominal pain. 3. Elevated liver enzymes. 4. History of hyperlipidemia. . Elevated inflammatory markers, ESR and C-reactive protein. PLAN 1. Neuro checks q1 hourly 2. Continue supportive medical therapy. 3. DVT prophylaxis 4. Continue supportive medical therapy. 5. GI prophylaxis Thank you for the opportunity to participate in the care of your patient. MD ASHLEIGH Casillas/ABA /10:39 PM /7:36 AM MTDD
[2017-01-06] MEDS: MORPHINE SULFATE 2 MG/ML INJ IV PUSH PRN ×3 (08:10→20:29)
[2017-01-06] MEDS: SODIUM CHLORIDE 0.9% FLUSH 10 ML FLUSH IV FLUSH PRN (08:11)
--- NOTE | 2017-01-06 09:13 | HHI.PR ---
Subjective Remarks still feels weak. abdomen pains. fevers/chills night sweats. describes 25 pound weight loss Objective Vitals oriented heart reg lung cta abd with light touch pt has abdomen retraction type reflex....maybe mild tenderness but no rebound. nd. bs Vital Signs Date Time Temp Pulse Resp B/P (MAP) Pulse Ox O2 Delivery O2 Flow Rate FiO2 01/06/17 08:04 97 Nasal Cannula 2.00 01/06/17 06:00 63 01/06/17 04:00 54 01/06/17 04:00 98.8 54 21 139/77 (97) 94 01/06/17 02:00 53 01/06/17 00:00 58 01/06/17 00:00 99.1 58 17 111/64 (80) 96 01/05/17 22:00 75 01/05/17 20:00 101.0 81 25 143/88 (106) 97 01/05/17 20:00 81 01/05/17 19:12 98 Nasal Cannula 2.00 01/05/17 18:00 73 01/05/17 17:08 98 Nasal Cannula 2.00 01/05/17 16:00 77 01/05/17 12:39 01/05/17 11:57 74 20 122/72 (89) 97 Nasal Cannula 2.00 Result Diagram: 01/06/17 04501/06/17 0452 A/P Problem List: (1) Fever ICD Codes: R50.9 - Fever, unspecified Status: Acute Plan: 1. Presents with progressive abdomen pains, general weakness and fatigue with episode of syncope/collapse. Describes recent 25pound weight loss(unintentional). Now with fevers/chills. Etiology unclear. s/p CT a/p and general surg eval of abdomen and no obvious source of pain. Seen by neurology and LP and w/up seems neg for meningitis. move out of ICU today PT and eval oob f/u pending blood cx 2 d echo ordered and pending continue w/up and monitoring inpatient as the diagnosis is not clear at this point. Infectious/malignant/autoimmune processes are all in the differential. (2) Abdominal pain ICD Codes: R10.9 - Unspecified abdominal pain Status: Acute (3) Syncope and collapse ICD Codes: R55 - Syncope and collapse Status: Acute (4) Weight loss, unintentional ICD Codes: R63.4 - Abnormal weight loss Status: Acute (5) Generalized weakness ICD Codes: R53.1 - Weakness Status: Acute Sai Crocker MD Jan 06, 2017 09:13
--- NOTE | 2017-01-06 12:25 | RADRPT ---
EXAM DATE/TIME: 01/05/2017 09:31 [facility] COMPARISON: No previous studies available for comparison. INDICATIONS : Patient presents with abdomin pain and weakness. MEDICAL HISTORY : 1. high cholesterol. 2. hernias SURGICAL HISTORY : 1. hernia repair ENCOUNTER: Initial ACUITY: 2 months PAIN SCORE: 2/10 back LUMBAR PUNCTURE TIME: 1003 hours FLUORO TIME: 1.8 minutes IMAGE SERIES: 1 ACCESS LEVEL: L3-4 OPENING PRESSURE: 15cm of water FLUID: 17 cc of clear CSF was collected and sent to the laboratory for analysis. PROCEDURE : 1. Fluoroscopic guided lumbar puncture. 2. Recording of opening pressure. The risks, benefits and alternatives to the procedure were explained and verbal and written consent w as obtained. The site was prepped in sterile fashion. Full sterile technique was used, including ca p, mask, sterile gloves and gown and a large sterile sheet. Hand hygiene and 2% chlorhexidine and/or betadine/alcohol prep was utilized per protocol for cutaneous antisepsis. The skin and subcutaneous tissues were infiltrated with local anesthetic solution. With fluoroscopic guidance the lumbar thecal sac was punctured at the above level described above and the opening pressure was recorded. The above described fluid was removed without difficulty. The patient tolerated the procedure well and there were no complications. CONCLUSION: Uncomplicated fluoroscopically guided lumbar puncture with pressures as above. Cristo Choudhury MD on January 06, 2017 at 12:24 Board Certified Radiologist. This report was verified electronically.
[2017-01-06] MEDS: PANTOPRAZOLE SODIUM 40 MG VIAL IV PUSH SCH (13:11)
[2017-01-06] MEDS: PIPERACIL-TAZO 3.375 GM PREMIX 50 ML IV SCH (20:29)
[2017-01-06] MEDS: IBUPROFEN 600 MG TAB PO PRN (21:27)
[2017-01-07] VITALS (8 sets, daily range): BP systolic 108–150; BP diastolic 65–83; PULSE 53–95; RESP 16–20; TEMP 96.3–100.2; O2SAT 92–97
--- NOTE | 2017-01-07 01:00 | RADRPT ---
EXAM DATE/TIME: 01/07/2017 00:47 [facility] COMPARISON: No previous studies available for comparison. INDICATIONS : Fever. RADIATION DOSE: 5.90 CTDIvol (mGy) MEDICAL HISTORY : Gastroesophageal reflux disease. SURGICAL HISTORY : Hernia repair. ENCOUNTER: Initial ACUITY: 2 days PAIN SCALE: 0/10 LOCATION: chest TECHNIQUE: Volumetric scanning of the chest was performed. Using automated exposure control and adjustment of t he mA and/or kV according to patient size, radiation dose was kept as low as reasonably achievable to obtain optimal diagnostic quality images. DICOM format image data is available electronically for r eview and comparison. Follow-up recommendations for detected pulmonary nodules are based at a minimum on nodule size and pa tient risk factors according to Fleischner Society Guidelines. FINDINGS: LUNGS: Volume loss of both lower lobes. Areas of consolidation in both lung bases atelectasis versus areas o f pneumonia left worse than right . There is no pneumothorax. No concerning pulmonary nodule is vis ualized. PLEURAE: There is no pleural thickening or pleural effusion. MEDIASTINUM: The heart and great vessels demonstrate no acute abnormality. There is no mediastinal or hilar lymph adenopathy. AXILLAE: Within normal limits. No lymphadenopathy. MUSCULOSKELETAL: Within normal limits for patient age. MISCELLANEOUS: The visualized upper abdominal organs demonstrate no acute abnormality. CONCLUSION: Bilateral lower lobe airspace disease left greater than right likely pneumonia. Vladimir Red MD on January 07, 2017 at 0:58 Board Certified Radiologist. This report was verified electronically.
[2017-01-07] MEDS: PIPERACIL-TAZO 3.375 GM PREMIX 50 ML IV SCH ×4 (01:52→20:23)
[2017-01-07] MEDS: RESP: ALBUTEROL 2.5 MG/IPRATROPIUM 0.5 MG NEB (SCH) INH ×4 (04:00→21:38)
[2017-01-07] MEDS: CHLORHEXIDINE GLUCONATE 2 % 1 PACK (2 CLOTHS) TOP SCH (04:00)
[2017-01-07] MEDS: IBUPROFEN 600 MG TAB PO PRN ×2 (10:49→18:14)
[2017-01-07] MEDS: PANTOPRAZOLE SODIUM 40 MG VIAL IV PUSH SCH (13:00)
[2017-01-07 14:02] LABS: AUTOMATED NEUTROPHIL # 8.6 TH/MM3 (1.8-7.7); BASOPHIL # 0.1 TH/MM3 (0-0.2); BASOPHIL % 0.6 % (0.0-2.0); EOSINOPHIL # 0.1 TH/MM3 (0-0.4); EOSINOPHIL % 1.1 % (0.0-4.0); HEMATOCRIT 39.2 % (39.0-51.0); HEMO FLAGS DIFF FINAL; LYMPH % 7.1 % (9.0-44.0); LYMPHOCYTE # 0.7 TH/MM3 (1.0-4.8); MEAN CELL VOLUME 85.5 FL (80.0-100.0); MEAN CORPUSCULAR HEMOGLOBIN 29.5 PG (27.0-34.0); MEAN CORPUSCULAR HGB CONC 34.5 % (32.0-36.0); MONO % 6.4 % (0.0-8.0); NEUT % 84.8 % (16.0-70.0); PLATELET COUNT 335 TH/MM3 (150-450); RED BLOOD COUNT 4.58 MIL/MM3 (4.50-5.90); RED CELL DISTRIBUTION WIDTH 12.8 % (11.6-17.2); WHITE BLOOD COUNT 10.2 TH/MM3 (4.0-11.0)
--- NOTE | 2017-01-07 14:18 | HHI.PR ---
Subjective Remarks Pt still having rigors/chills and fevers today. Family and nurse report fever as high as 102 this morning Pt able to ambulate with PT 160' with hand-hold assistance. He denies any diarrhea, constipation, melena or BRBPR He reports these "spasms" in his throat whenever he has these rigors. Objective Vitals Vital Signs Date Time Temp Pulse Resp B/P (MAP) Pulse Ox O2 Delivery O2 Flow Rate FiO2 01/07/17 10:45 96 Nasal Cannula 2.00 01/07/17 08:00 96.9 75 20 150/83 (105) 96 01/07/17 04:22 96.3 53 18 111/71 (84) 97 01/07/17 00:25 98.0 56 18 108/65 (79) 97 01/06/17 20:46 95 Nasal Cannula 2.00 01/06/17 20:00 80 01/06/17 20:00 102.5 80 26 132/54 (80) 96 01/06/17 18:00 91 01/06/17 16:00 103.0 01/06/17 16:00 82 01/06/17 14:00 77 Result Diagram: 01/06/17 0452 01/06/17 0452 Other Results Laboratory Tests Test 01/05/17 15:00 01/05/17 17:16 01/06/17 04:52 01/07/17 13:30 Urine Color YELLOW Urine Turbidity CLEAR Urine pH 6.0 Urine Specific [place] 1.012 Urine Protein NEG mg/dL Urine Glucose (UA) NEG mg/dL Urine Ketones NEG mg/dL Urine Occult Blood NEG Urine Nitrite NEG Urine Bilirubin NEG Urine Urobilinogen LESS THAN 2.0 MG/DL Urine Leukocyte Esterase NEG Urine RBC 2 /hpf Urine WBC 2 /hpf Microscopic Urinalysis Comment CULT NOT INDICATED Nasal Screen MRSA (PCR) MRSA NOT DETECTED Erythrocyte Sedimentation Rate 77 mm/hr Hepatitis A IgM Antibody NEGATIVE Hepatitis B Surface Antigen NEGATIVE Hepatitis B Core IgM Antibody NEGATIVE Hepatitis C Antibody NEGATIVE White Blood Count 7.5 TH/MM3 Red Blood Count 4.62 MIL/MM3 Hemoglobin 13.9 GM/DL Hematocrit 39.7 % Mean Corpuscular Volume 86.0 FL Mean Corpuscular Hemoglobin 30.2 PG Mean Corpuscular Hemoglobin Concent 35.1 % Red Cell Distribution Width 12.7 % Platelet Count 261 TH/MM3 Mean Platelet Volume 7.9 FL Neutrophils (%) (Auto) 72.5 % Lymphocytes (%) (Auto) 13.1 % Monocytes (%) (Auto) 11.1 % Eosinophils (%) (Auto) 2.6 % Basophils (%) (Auto) 0.7 % Neutrophils # (Auto) 5.5 TH/MM3 Lymphocytes # (Auto) 1.0 TH/MM3 Monocytes # (Auto) 0.8 TH/MM3 Eosinophils # (Auto) 0.2 TH/MM3 Basophils # (Auto) 0.0 TH/MM3 CBC Comment DIFF FINAL Differential Comment Blood Urea Nitrogen 13 MG/DL Creatinine 0.85 MG/DL Random Glucose 97 MG/DL Total Protein 7.8 GM/DL Albumin 2.9 GM/DL Calcium Level 9.1 MG/DL Alkaline Phosphatase 305 U/L Aspartate Amino Transf (AST/SGOT) 52 U/L Alanine Aminotransferase (ALT/SGPT) 125 U/L Total Bilirubin 1.4 MG/DL Sodium Level 136 MEQ/L Potassium Level 3.8 MEQ/L Chloride Level 99 MEQ/L Carbon Dioxide Level 28.1 MEQ/L Anion Gap 9 MEQ/L Estimat Glomerular Filtration Rate 92 ML/MIN Imaging Last Impressions Chest CT 01/06/17 0000 Signed Impressions: Service Date/Time: Saturday, January 07, 2017 00:47 - CONCLUSION: Bilateral lower lobe airspace disease left greater than right likely pneumonia. Vladimir Red MD Abdomen/Pelvis CT 01/05/17 0752 Signed Impressions: Service Date/Time: Thursday, January 05, 2017 08:09 - CONCLUSION: 1. Bibasilar atelectatic changes with no confluent infiltrate. 2. Isolated gallstone in the gallbladder lumen. 3. CT findings no prior mesh repair possibly for bilateral inguinal hernia or lower anterior abdominal wall hernia. 4. Mild prominence of the prostate Cristo Choudhury MD Thoracic Spine MRI 01/05/17 0000 Signed Impressions: Service Date/Time: Thursday, January 05, 2017 12:36 - CONCLUSION: 1. Tiny bilateral pleural effusions and bibasilar consolidations. 2. Central canal is patent. No vertebral compression deformities. Javed Hawkins Jr., MD Lumbar Spine MRI 01/05/17 0000 Signed Impressions: Service Date/Time: Thursday, January 05, 2017 12:36 - CONCLUSION: 1. No acute abnormality. Javed Hawkins Jr., MD Lumbar Puncture Fluoroscopy 01/05/17 Signed Impressions: Service Date/Time: Thursday, January 05, 2017 09:31 - CONCLUSION: Uncomplicated fluoroscopically guided lumbar puncture with pressures as above. Cristo Choudhury MD Liver Ultrasound 01/05/17 Signed Impressions: Service Date/Time: Thursday, January 05, 2017 13:55 - CONCLUSION: 1. Hepatosplenomegaly. 2. Heterogeneous echotexture of the liver but no focal mass seen. No significant biliary ductal dilation identified. 3. 3 mm cholesterol polyp adherent to the gallbladder wall. Mike Cary MD Head CT 01/05/17 Signed Impressions: Service Date/Time: Thursday, January 05, 2017 08:12 - CONCLUSION: 1. 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 2. Nothing acute. Cristo Choudhury MD Chest X-Ray 01/05/17 Signed Impressions: Service Date/Time: Thursday, January 05, 2017 15:07 - CONCLUSION: No acute disease. Javed Hawkins Jr., MD Cervical Spine MRI 01/05/17 Signed Impressions: Service Date/Time: Thursday, January 05, 2017 12:36 - CONCLUSION: There is subtle enhancement interspinous ligaments between C2-C3, C3-C4, C4-C5. Controlled flexion extension films may be of benefit to exclude ligamentous instability. present as well. This can be seen with ligamentous injury. This would be very unusual place for infection. No other abnormalities appreciated. Tiago Cary MD FACR Objective Remarks General: NAD, AAOx3 Chest: CTA Cardiac: Regular Abd: +BS, soft, tenderness to light touch throughout Ext: No edema A/P Problem List: (1) Fever ICD Codes: R50.9 - Fever, unspecified Status: Acute Plan: Pt is a 61 y/o male without significant PMH. Syncope/Collapse Fever Generalized weakness - Pt presented after an episode of syncope/collapse. Pt also reported a 2 week hx of progressive abdomen pains, general weakness, fatigue, subjective fever/chills, night sweats and a recent 25pound weight loss(unintentional). - Pt was noted to have fevers/chills/rigors during admission. - Etiology unclear. - Pt was admitted to ICU from the ED - Seen by neurology and LP and w/up seems neg for meningitis. - Pt had CT Abd/pelvis - General surg eval of abdomen and they do not feel that the mesh is a likely cause for the pain/fevers/weight loss etc. - f/u pending blood cx (01/06) NGTD - 2D echo ordered and pending - continue w/up and monitoring inpatient as the diagnosis is not clear at this point. Infectious/malignant/autoimmune processes are all in the differential. Abdominal pain Elevated LFTs - Etiology unclear - Viral Hepatitis panel is negative - JOSE is pending - Liver US --> Hepatosplenomegaly. Heterogeneous echotexture of the liver but no focal mass seen. No significant biliary ductal dilation identified. 3 mm cholesterol polyp adherent to the gallbladder wall. - CT Abd/.pelvis (01/05) --> Bibasilar atelectatic changes with no confluent infiltrate. Isolated gallstone in the gallbladder lumen. CT findings no prior mesh repair possibly for bilateral inguinal hernia or lower anterior abdominal wall hernia. Mild prominence of the prostate Unexplained weight loss - See above. (2) Abdominal pain ICD Codes: R10.9 - Unspecified abdominal pain Status: Acute (3) Syncope and collapse ICD Codes: R55 - Syncope and collapse Status: Acute (4) Weight loss, unintentional ICD Codes: R63.4 - Abnormal weight loss Status: Acute (5) Generalized weakness ICD Codes: R53.1 - Weakness Status: Acute Giovana Shepherd Jan 07, 2017 14:18
[2017-01-07 14:21] LABS: BICARBONATE 25.3 MEQ/L (21.0-32.0); POTASSIUM 3.5 MEQ/L (3.5-5.1)
[2017-01-07 14:24] LABS: INDIRECT BILIRUBIN 0.7 MG/DL (0.0-0.8); TOTAL BILIRUBIN ADULT 1.6 MG/DL (0.2-1.0)
--- NOTE | 2017-01-07 17:07 | ECHRPT ---
Indication: POSS SEPSIS, ?ENDOCARDITIS CONCLUSIONS Normal left ventricular size. The left ventricular systolic function is grossly normal on limited imaging. Trace mitral valve regurgitation. There is trace tricuspid valve regurgitation. The estimated pulmonary arterial pressure is 30 mmHg. BP: 139 / 77 HR: 54 Rhythm: Sinus MEASUREMENTS (Male / Female) Normal Values Technical Quality:Fair 2D ECHO LV Diastolic Diameter PLAX 4.6 cm 4.2 - 5.9 / 3.9 - 5.3 cm LV Systolic Diameter PLAX 2.9 cm IVS Diastolic Thickness 1.0 cm 0.6 - 1.0 / 0.6 - 0.9 cm LVPW Diastolic Thickness 1.0 cm 0.6 - 1.0 / 0.6 - 0.9 cm LV Relative Wall Thickness 0.4 LVOT Diameter 2.2 cm Aortic Root Diameter 3.1 cm LA Systolic Diameter LX 3.2 cm 3.0 - 4.0 / 2.7 - 3.8 cm M-MODE AV Cusp Separation MM 2.2 cm DOPPLER AV Peak Velocity 123.0 cm/s AV Peak Gradient 6.1 mmHg AV Mean Gradient 3.0 mmHg AV Velocity Time Integral 21.1 cm LVOT Peak Velocity 91.7 cm/s LVOT Peak Gradient 3.4 mmHg LVOT Velocity Time Integral 16.1 cm AV Area Cont Eq vti 2.9 cm AV Area Cont Eq pk 2.8 cm Mitral E Point Velocity 70.1 cm/s Mitral A Point Velocity 69.1 cm/s Mitral E to A Ratio 1.0 LV E' Lateral Velocity 15.7 cm/s Mitral E to LV E' Lateral Ratio 4.5 LV E' Septal Velocity 7.8 cm/s Mitral E to LV E' Septal Ratio 9.0 TR Peak Velocity 225.0 cm/s TR Peak Gradient 20.3 mmHg Right Atrial Pressure 10.0 mmHg Pulmonary Artery Systolic Pressu 30.3 mmHg Right Ventricular Systolic Press 30.3 mmHg PV Peak Velocity 98.5 cm/s PV Peak Gradient 3.9 mmHg FINDINGS LEFT VENTRICLE Normal left ventricular size. The left ventricular systolic function is grossly normal on limited imaging. RIGHT VENTRICLE Normal right ventricular size and systolic function. LEFT ATRIUM The left atrial size is normal. RIGHT ATRIUM The right atrial size is normal. ATRIAL SEPTUM Normal atrial septal thickness without atrial level shunting by limited color doppler interrogation. AORTA The aortic root and proximal ascending aorta are normal in size on limited imaging. MITRAL VALVE Trace mitral valve regurgitation. AORTIC VALVE Trileaflet aortic valve. No aortic valve stenosis or regurgitation. TRICUSPID VALVE There is trace tricuspid valve regurgitation. The estimated pulmonary arterial pressure is 30 mmHg. VESSELS The inferior vena cava is normal in size. PERICARDIUM No pericardial effusion. Brown Todd MD (Electronically Signed) Final Date:07 January 2017 17:06
[2017-01-07] MEDS: SODIUM CHLORIDE 0.9% FLUSH 10 ML FLUSH IV FLUSH PRN (20:23)
[2017-01-08] VITALS (8 sets, daily range): BP systolic 119–169; BP diastolic 72–94; PULSE 70–103; RESP 15–20; TEMP 97.1–102; O2SAT 93–95
[2017-01-08] MEDS: IBUPROFEN 600 MG TAB PO PRN (02:41)
[2017-01-08] MEDS: PIPERACIL-TAZO 3.375 GM PREMIX 50 ML IV SCH ×4 (02:41→20:19)
[2017-01-08] MEDS: RESP: ALBUTEROL 2.5 MG/IPRATROPIUM 0.5 MG NEB (SCH) INH ×4 (03:25→20:21)
[2017-01-08] MEDS: CHLORHEXIDINE GLUCONATE 2 % 1 PACK (2 CLOTHS) TOP SCH (04:00)
[2017-01-08 09:10] LABS: INDIRECT BILIRUBIN 0.4 MG/DL (0.0-0.8)
[2017-01-08] MEDS ORDERED: IBUPROFEN 400 MG TAB PO ONE (09:30)
--- NOTE | 2017-01-08 13:12 | HHI.PR ---
Subjective Remarks still with intermittent nonspecific aches/pains. now in ribs. still having alot of sweats and soaking sheets. Objective Vitals heart reg lung left lung crackles base and upper egophany sounds ext no edema Vital Signs Date Time Temp Pulse Resp B/P (MAP) Pulse Ox O2 Delivery O2 Flow Rate FiO2 01/08/17 08:00 97.9 70 16 126/75 (92) 95 01/08/17 04:00 98.9 85 15 137/76 (96) 94 01/08/17 00:00 97.6 76 17 119/72 (88) 94 01/07/17 21:38 95 21 01/07/17 20:30 97.5 74 16 119/66 (83) 93 01/07/17 16:00 98.3 71 16 112/67 (82) 95 Result Diagram: 01/07/17 1330 01/07/17 1330 Imaging Last Impressions Chest CT 01/06/17 0000 Signed Impressions: Service Date/Time: Saturday, January 07, 2017 00:47 - CONCLUSION: Bilateral lower lobe airspace disease left greater than right likely pneumonia. Vladimir Red MD Abdomen/Pelvis CT 01/05/17 0752 Signed Impressions: Service Date/Time: Thursday, January 05, 2017 08:09 - CONCLUSION: 1. Bibasilar atelectatic changes with no confluent infiltrate. 2. Isolated gallstone in the gallbladder lumen. 3. CT findings no prior mesh repair possibly for bilateral inguinal hernia or lower anterior abdominal wall hernia. 4. Mild prominence of the prostate Cristo Choudhury MD Thoracic Spine MRI 01/05/17 0000 Signed Impressions: Service Date/Time: Thursday, January 05, 2017 12:36 - CONCLUSION: 1. Tiny bilateral pleural effusions and bibasilar consolidations. 2. Central canal is patent. No vertebral compression deformities. Javed Hawkins Jr., MD Lumbar Spine MRI 01/05/17 0000 Signed Impressions: Service Date/Time: Thursday, January 05, 2017 12:36 - CONCLUSION: 1. No acute abnormality. Javed Hawkins Jr., MD Lumbar Puncture Fluoroscopy 01/05/17 0000 Signed Impressions: Service Date/Time: Thursday, January 05, 2017 09:31 - CONCLUSION: Uncomplicated fluoroscopically guided lumbar puncture with pressures as above. Cristo Choudhury MD Liver Ultrasound 01/05/17 0000 Signed Impressions: Service Date/Time: Thursday, January 05, 2017 13:55 - CONCLUSION: 1. Hepatosplenomegaly. 2. Heterogeneous echotexture of the liver but no focal mass seen. No significant biliary ductal dilation identified. 3. 3 mm cholesterol polyp adherent to the gallbladder wall. Mike Cary MD Head CT 01/05/17 0000 Signed Impressions: Service Date/Time: Thursday, January 05, 2017 08:12 - CONCLUSION: 1. 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 2. Nothing acute. Cristo Choudhury MD Chest X-Ray 01/05/17 0000 Signed Impressions: Service Date/Time: Thursday, January 05, 2017 15:07 - CONCLUSION: No acute disease. Javed Hawkins Jr., MD Cervical Spine MRI 01/05/17 0000 Signed Impressions: Service Date/Time: Thursday, January 05, 2017 12:36 - CONCLUSION: There is subtle enhancement interspinous ligaments between C2-C3, C3-C4, C4-C5. Controlled flexion extension films may be of benefit to exclude ligamentous instability. present as well. This can be seen with ligamentous injury. This would be very unusual place for infection. No other abnormalities appreciated. Tiago Cary MD FACR A/P Problem List: (1) Fever ICD Codes: R50.9 - Fever, unspecified Status: Acute Plan: Pt is a 61 y/o male without significant PMH. Syncope/Collapse Fever - Pt presented after an episode of syncope/collapse. Pt also reported a 2 week hx of progressive abdomen pains, general weakness, fatigue, subjective fever/chills, night sweats and a recent 25pound weight loss(unintentional). - Pt was noted to have fevers/chills/rigors during admission. - Etiology unclear. - Pt was admitted to ICU from the ED - Seen by neurology and LP and w/up negative for meningitis. - General surg eval of abdomen and they do not feel that the mesh is a likely cause for the pain/fevers/weight loss etc. - f/u pending blood cx (01/06) NGTD - 2D echo essential nml. no vegetation - continue w/up and monitoring inpatient as the diagnosis is not clear at this point. Infectious/malignant/autoimmune processes are all in the differential. - cont abx for an apparent pneumonia. mostly right lung. f/u pending cx's and viral/autoimmune studies. ?tagged wbc. will consider ID/Pulm consult Abdominal pain Elevated LFTs - Etiology unclear - Viral Hepatitis panel is negative - JOSE is negative - Liver US --> Hepatosplenomegaly. Heterogeneous echotexture of the liver but no focal mass seen. No significant biliary ductal dilation identified. 3 mm cholesterol polyp adherent to the gallbladder wall. - CT Abd/.pelvis (01/05) --> Bibasilar atelectatic changes with no confluent infiltrate. Isolated gallstone in the gallbladder lumen. CT findings no prior mesh repair possibly for bilateral inguinal hernia or lower anterior abdominal wall hernia. Mild prominence of the prostate Unexplained weight loss - See above. (2) Abdominal pain ICD Codes: R10.9 - Unspecified abdominal pain Status: Acute (3) Syncope and collapse ICD Codes: R55 - Syncope and collapse Status: Acute (4) Weight loss, unintentional ICD Codes: R63.4 - Abnormal weight loss Status: Acute (5) Generalized weakness ICD Codes: R53.1 - Weakness Status: Acute Sai Crocker MD Jan 08, 2017 13:12
[2017-01-08] MEDS: PANTOPRAZOLE SODIUM 40 MG VIAL IV PUSH SCH (13:39)
[2017-01-08] MEDS: traMADol HCL 50 MG TAB PO PRN ×2 (13:40→20:47)
[2017-01-08] MEDS: ACETAMINOPHEN 325 MG TAB PO PRN (18:33)
[2017-01-08 18:52] LABS: TRANSFERRIN IRON PROFILE 128 MG/DL (200-360)
[2017-01-08 18:55] LABS: FERRITIN 464 NG/ML (26-388)
[2017-01-08] MEDS: SODIUM CHLORIDE 0.9% FLUSH 10 ML FLUSH IV FLUSH PRN (20:22)
[2017-01-09] VITALS: BP 114/74; PULSE 78; RESP 17; TEMP 98.6; O2SAT 94
[2017-01-09] MEDS: PIPERACIL-TAZO 3.375 GM PREMIX 50 ML IV SCH ×4 (01:37→20:18)
[2017-01-09] MEDS: RESP: ALBUTEROL 2.5 MG/IPRATROPIUM 0.5 MG NEB (SCH) INH ×2 (03:17→09:25)
[2017-01-09 04:00] VITALS: BP 146/71; PULSE 82; RESP 19; TEMP 98.6; O2SAT 97
[2017-01-09] MEDS: CHLORHEXIDINE GLUCONATE 2 % 1 PACK (2 CLOTHS) TOP SCH (04:00)
[2017-01-09 07:04] LABS: INDIRECT BILIRUBIN 0.4 MG/DL (0.0-0.8); TOTAL BILIRUBIN ADULT 0.9 MG/DL (0.2-1.0)
--- NOTE | 2017-01-09 07:16 | RADRPT ---
EXAM DATE/TIME: 01/09/2017 06:44 [facility] COMPARISON: CHEST SINGLE AP, January 05, 2017, 15:07. INDICATIONS : Fever, weakness, short of breath MEDICAL HISTORY : Gastroesophageal reflux disease. SURGICAL HISTORY : hernia repair ENCOUNTER: Subsequent ACUITY: 2 days PAIN SCORE: 0/10 LOCATION: Bilateral chest FINDINGS: The lungs are hypoaerated. There is mild bibasilar airspace disease without significant consolidation . There are no nodular densities or effusions. Heart and mediastinal structures are stable. CONCLUSION: Bibasilar airspace disease characteristic of atelectasis. Hypoaerated lungs. Otherwise stable chest. Jose Weiss MD on January 09, 2017 at 7:14 Board Certified Radiologist. This report was verified electronically.
[2017-01-09] MEDS: traMADol HCL 50 MG TAB PO PRN (07:35)
[2017-01-09] MEDS: SODIUM CHLORIDE 0.9% FLUSH 10 ML FLUSH IV FLUSH PRN (07:36)
[2017-01-09 08:00] VITALS: BP 130/75; PULSE 79; RESP 18; TEMP 98.9; O2SAT 92
[2017-01-09] MEDS: AZITHROMYCIN INJ 500 MG in SODIUM CHLOR 0.9% 250 ML INJ 250 ML IV SCH (10:41)
[2017-01-09] MEDS ORDERED: methylPREDNISolone SOD SUCC 125 MG/2 ML VIAL IV PUSH ONE (10:45)
[2017-01-09] MEDS: ACETAMINOPHEN 325 MG TAB PO PRN ×3 (10:54→19:14)
--- NOTE | 2017-01-09 11:02 | HHI.PR ---
Subjective Remarks fevers last night. body aches with focus on post neck. then c/o sinus pressure. Objective Vitals in chair oriented mild post neck tenderness no obvious spasms. able to ext/flex and rotate neck. heart reg lung left base crackles with midlung egophony Vital Signs Date Time Temp Pulse Resp B/P (MAP) Pulse Ox O2 Delivery O2 Flow Rate FiO2 01/09/17 08:00 98.9 79 18 130/75 (93) 92 01/09/17 04:00 98.6 82 19 146/71 (96) 97 01/09/17 00:00 98.6 78 17 114/74 (87) 94 01/08/17 19:00 97.1 103 16 165/94 (117) 94 01/08/17 18:00 102.0 01/08/17 16:00 99.2 88 20 169/91 (117) 94 01/08/17 12:00 98.1 75 16 137/78 (97) 95 Result Diagram: 01/07/17 1330 01/07/17 1330 Imaging Last Impressions Chest CT 01/06/17 0000 Signed Impressions: Service Date/Time: Saturday, January 07, 2017 00:47 - CONCLUSION: Bilateral lower lobe airspace disease left greater than right likely pneumonia. Vladimir Red MD Abdomen/Pelvis CT 01/05/17 0752 Signed Impressions: Service Date/Time: Thursday, January 05, 2017 08:09 - CONCLUSION: 1. Bibasilar atelectatic changes with no confluent infiltrate. 2. Isolated gallstone in the gallbladder lumen. 3. CT findings no prior mesh repair possibly for bilateral inguinal hernia or lower anterior abdominal wall hernia. 4. Mild prominence of the prostate Cristo Choudhury MD Thoracic Spine MRI 01/05/17 0000 Signed Impressions: Service Date/Time: Thursday, January 05, 2017 12:36 - CONCLUSION: 1. Tiny bilateral pleural effusions and bibasilar consolidations. 2. Central canal is patent. No vertebral compression deformities. Javed Hawkins Jr., MD Lumbar Spine MRI 01/05/17 0000 Signed Impressions: Service Date/Time: Thursday, January 05, 2017 12:36 - CONCLUSION: 1. No acute abnormality. Javed Hawkins Jr., MD Lumbar Puncture Fluoroscopy 01/05/17 0000 Signed Impressions: Service Date/Time: Thursday, January 05, 2017 09:31 - CONCLUSION: Uncomplicated fluoroscopically guided lumbar puncture with pressures as above. Cristo Choudhury MD Liver Ultrasound 01/05/17 0000 Signed Impressions: Service Date/Time: Thursday, January 05, 2017 13:55 - CONCLUSION: 1. Hepatosplenomegaly. 2. Heterogeneous echotexture of the liver but no focal mass seen. No significant biliary ductal dilation identified. 3. 3 mm cholesterol polyp adherent to the gallbladder wall. Mike Cary MD Head CT 01/05/17 0000 Signed Impressions: Service Date/Time: Thursday, January 05, 2017 08:12 - CONCLUSION: 1. 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 2. Nothing acute. Cristo Choudhury MD Chest X-Ray 01/05/17 0000 Signed Impressions: Service Date/Time: Thursday, January 05, 2017 15:07 - CONCLUSION: No acute disease. Javed Hawkins Jr., MD Cervical Spine MRI 01/05/17 0000 Signed Impressions: Service Date/Time: Thursday, January 05, 2017 12:36 - CONCLUSION: There is subtle enhancement interspinous ligaments between C2-C3, C3-C4, C4-C5. Controlled flexion extension films may be of benefit to exclude ligamentous instability. present as well. This can be seen with ligamentous injury. This would be very unusual place for infection. No other abnormalities appreciated. Tiago Cary MD FACR A/P Problem List: (1) Fever ICD Codes: R50.9 - Fever, unspecified Status: Acute Plan: Syncope/Collapse persistent Fever Abdomen pain elevation LFT elevated esr weight loss - Pt presented after an episode of syncope/collapse. Pt also reported a 2 week hx of progressive abdomen pains, general weakness, fatigue, subjective fever/chills, night sweats and a recent 25pound weight loss (unintentional). - Pt was noted to have fevers/chills/rigors during admission. - Pt was admitted to ICU from the ED - initial wup by ED/ICU/Neuro included LP,MRI c/t/l spine, ct a/p x 2, liver u/ s. They were initially concerned about G. [place] due to recent influenza shot. No evidence for meningitis or GBS. - General surg eval of abdomen and they do not feel that the mesh is a likely cause for the pain/fevers/weight loss etc. - 2D echo essential nml. no vegetation - Liver US --> Hepatosplenomegaly. Heterogeneous echotexture of the liver but no focal mass seen. No significant biliary ductal dilation identified. 3 mm cholesterol polyp adherent to the gallbladder wall. - CT Abd/.pelvis (01/05) --> Bibasilar atelectatic changes with no confluent infiltrate. Isolated gallstone in the gallbladder lumen. CT findings no prior mesh repair possibly for bilateral inguinal hernia or lower anterior abdominal wall hernia. Mild prominence of the prostate - continue w/up and monitoring inpatient as the diagnosis is not clear at this point. Infectious/malignant/autoimmune processes are all in the differential. - cont abx for an apparent pneumonia on CT and by exam. mostly left lung. cont zosyn. add azithromycin -consult ID to get opinion if fevers related to infectious process and if so then ?source -f/u pending cx's and autoimmune w/up. (2) Abdominal pain ICD Codes: R10.9 - Unspecified abdominal pain Status: Acute (3) Syncope and collapse ICD Codes: R55 - Syncope and collapse Status: Acute (4) Weight loss, unintentional ICD Codes: R63.4 - Abnormal weight loss Status: Acute (5) Generalized weakness ICD Codes: R53.1 - Weakness Status: Acute Sai Crocker MD Jan 09, 2017 11:02
[2017-01-09 12:00] VITALS: BP 115/71; PULSE 73; RESP 18; TEMP 97.9; O2SAT 94
[2017-01-09] MEDS: PANTOPRAZOLE SODIUM 40 MG VIAL IV PUSH SCH (12:32)
[2017-01-09 16:00] VITALS: BP 121/78; PULSE 67; RESP 16; TEMP 96.4; O2SAT 93
--- NOTE | 2017-01-09 17:16 | PD.ID.CON ---
History of Present Illness Service ID Consult Requested By Dr Crocker Reason for Consult fever Primary Care Physician Jamey Ventura MD Diagnoses: History of Present Illness 61 yo male presentes with abdominal pain and fever 101-103 range x 2 mos He has wxtensiv e w/u W/u showed Bilateral lower lobe airspace disease left greater than right likely pneumonia on CT chest Abdomen/Pelvis CT from 01/05/17 0752 showed Bibasilar atelectatic changes with no confluent infiltrate. 2. Isolated gallstone in the gallbladder lumen. 3. CT findings prior mesh repair possibly for bilateral inguinal hernia or lower anterior abdominal wall hernia. 4. Mild prominence of the prostate Thoracic Spine MRI 01/05/17 unremarkable Lumbar Spine MRI 01/05/17 without acute abnormality. Lumbar Puncture by Fluoroscopy performed on 01/05/17 and showed fairly normal CSF with the exception of borderline protein elevation Liver Ultrasound 01/05/17 showed Hepatosplenomegaly and Heterogeneous echotexture of the liver but no focal mass seen. No significant biliary ductal dilation identified. 3. 3 mm cholesterol polyp adherent to the gallbladder wall. Head CT 01/05/17 with an old lacunar type infarct in the anterior aspect of the left external capsule. Cervical Spine MRI 01/05/17 with subtle enhancement interspinous ligaments between C2-C3, C3-C4, C4-C5. He is on broad spectum abx His pain resolved today Review of Systems Constitutional: COMPLAINS OF: Weight loss (40 lbs) Except as stated in HPI: all other systems reviewed are Neg Past Family Social History Allergies: Coded Allergies: No Known Allergies (Verified Allergy, Unknown, 01/05/17) Past Medical History Hyperlipidemia. Past Surgical History 1. Previous hernia repair one year ago. 2. Carpal tunnel surgery. 3. Multiple orthopedic surgeries. Active Ordered Medications Medications where reviewed in EMR Antibiotics Include: zosyn azithro Family History reviewed Noncontributory. Social History No Tobacco. occasional ETOH. No Illicit Drugs. self-emploeyed in [facility] Physical Exam Vital Signs Vital Signs Date Time Temp Pulse Resp B/P (MAP) Pulse Ox O2 Delivery O2 Flow Rate FiO2 01/09/17 12:00 97.9 73 18 115/71 (86) 94 01/09/17 08:00 98.9 79 18 130/75 (93) 92 01/09/17 04:00 98.6 82 19 146/71 (96) 97 01/09/17 00:00 98.6 78 17 114/74 (87) 94 01/08/17 19:00 97.1 103 16 165/94 (117) 94 01/08/17 18:00 102.0 Physical Exam CONSTITUTIONAL/GENERAL: This is an adequately nourished patient, in no apparent distress. TUBES/LINES/DRAINS: SKIN: No jaundice, rashes, or lesions. Skin temperature appropriate. Not diaphoretic. HEAD: Atraumatic. Normocephalic. EYES: Pupils equal and round and reactive. Extraocular motions intact. No scleral icterus. No injection or drainage. Fundi not examined. ENT: Hearing grossly normal. Nose without bleeding or purulent drainage. Oral mucosae without visible erythema, exudates, masses, or lesions. NECK: Trachea midline. CARDIOVASCULAR: Regular rate and rhythm without murmurs, gallops, or rubs. No JVD. Peripheral pulses symmetric. RESPIRATORY/CHEST: Symmetric, unlabored respirations. Clear to auscultation. Breath sounds equal bilaterally. No wheezes, rales, or rhonchi. GASTROINTESTINAL: Abdomen soft, non-tender, nondistended. No hepato-splenomegaly , or palpable masses. No guarding. Bowel sounds present. GENITOURINARY: Without palpable bladder distension. MUSCULOSKELETAL: Extremities without clubbing, cyanosis, or edema. No joint tenderness or effusion noted. No calf tenderness. No mottling or clubbing. LYMPHATICS: No palpable cervical or supraclavicular adenopathy. NEUROLOGICAL: Awake and alert. Motor and sensory grossly within normal limits. Follows commands. Clear speech . Moves all extremities. PSYCHIATRIC: No obvious anxiety/depression. no apparent hallucinations or other psychotic thought process. Laboratory Laboratory Tests Test 01/08/17 17:45 01/09/17 05:26 Iron Level 30 Total Iron Binding Capacity 179 Percent Iron Saturation 16.7 Ferritin 464 HIV (1&2) Antibody NEGATIVE Total Bilirubin 0.9 Direct Bilirubin 0.5 Indirect Bilirubin 0.4 Aspartate Amino Transf (AST/SGOT) 50 Alanine Aminotransferase (ALT/SGPT) 115 Alkaline Phosphatase 405 Total Creatine Kinase 42 Total Protein 7.0 Albumin 2.4 Date/Time Source Procedure Growth Status 01/08/17 19:14 Blood Peripheral Aerobic Blood Culture - Preliminary NO GROWTH IN 1 DAY Resulted 01/08/17 19:14 Blood Peripheral Anaerobic Blood Culture - Preliminary NO GROWTH IN 1 DAY Resulted 01/05/17 10:04 Cerebral Spinal Fluid Lumbar Puncture Gram Stain - Final Complete 01/05/17 10:04 Cerebral Spinal Fluid Lumbar Puncture CSF Culture - Final NO GROWTH IN 72 HOURS Complete 01/08/17 12:58 Urine Random Urine Legionella Antigen - Final PRESUMPTIVE NEGATIVE FOR LEGIONELLA P... Complete 01/08/17 12:58 Urine Random Urine Streptococcus pneumoniae Antigen (M - Final PRESUMPTIVE NEGATIVE FOR STREPTOCOCCU... Complete Result Diagram: 01/07/17 1330 01/07/17 1330 Imaging Last Impressions Chest X-Ray 01/09/17 0600 Signed Impressions: Service Date/Time: Monday, January 09, 2017 06:44 - CONCLUSION: Bibasilar airspace disease characteristic of atelectasis. Hypoaerated lungs. Otherwise stable chest. Jose Weiss MD Chest CT 01/06/17 0000 Signed Impressions: Service Date/Time: Saturday, January 07, 2017 00:47 - CONCLUSION: Bilateral lower lobe airspace disease left greater than right likely pneumonia. Vladimir Red MD Abdomen/Pelvis CT 01/05/17 0752 Signed Impressions: Service Date/Time: Thursday, January 05, 2017 08:09 - CONCLUSION: 1. Bibasilar atelectatic changes with no confluent infiltrate. 2. Isolated gallstone in the gallbladder lumen. 3. CT findings no prior mesh repair possibly for bilateral inguinal hernia or lower anterior abdominal wall hernia. 4. Mild prominence of the prostate Cristo Choudhury MD Thoracic Spine MRI 01/05/17 0000 Signed Impressions: Service Date/Time: Thursday, January 05, 2017 12:36 - CONCLUSION: 1. Tiny bilateral pleural effusions and bibasilar consolidations. 2. Central canal is patent. No vertebral compression deformities. Javed Hawkins Jr., MD Lumbar Spine MRI 01/05/17 0000 Signed Impressions: Service Date/Time: Thursday, January 05, 2017 12:36 - CONCLUSION: 1. No acute abnormality. Javed Hawkins Jr., MD Lumbar Puncture Fluoroscopy 01/05/17 0000 Signed Impressions: Service Date/Time: Thursday, January 05, 2017 09:31 - CONCLUSION: Uncomplicated fluoroscopically guided lumbar puncture with pressures as above. Cristo Choudhury MD Liver Ultrasound 01/05/17 0000 Signed Impressions: Service Date/Time: Thursday, January 05, 2017 13:55 - CONCLUSION: 1. Hepatosplenomegaly. 2. Heterogeneous echotexture of the liver but no focal mass seen. No significant biliary ductal dilation identified. 3. 3 mm cholesterol polyp adherent to the gallbladder wall. Mike Cary MD Head CT 01/05/17 0000 Signed Impressions: Service Date/Time: Thursday, January 05, 2017 08:12 - CONCLUSION: 1. 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 2. Nothing acute. Cristo Choudhury MD Cervical Spine MRI 01/05/17 0000 Signed Impressions: Service Date/Time: Thursday, January 05, 2017 12:36 - CONCLUSION: There is subtle enhancement interspinous ligaments between C2-C3, C3-C4, C4-C5. Controlled flexion extension films may be of benefit to exclude ligamentous instability. present as well. This can be seen with ligamentous injury. This would be very unusual place for infection. No other abnormalities appreciated. Tiago Cary MD FACR Assessment and Plan Assessment and Plan FUO Abd LFTs h/o hernia repair with mesh B/b PNA Weight loss cont zosyshiloh stahl consideer further liver w/u (MRCP?) Dulce Brush MD Jan 09, 2017 17:16
[2017-01-09 20:00] VITALS: BP 121/70; PULSE 67; RESP 18; TEMP 96; O2SAT 94
[2017-01-09 23:53] LABS: GM-1 AB IGG <1:800 titer (<1:800); GM-1 AB IGM <1:800 titer (<1:800)
[2017-01-10] VITALS (13 sets, daily range): BP systolic 102–170; BP diastolic 71–93; PULSE 52–97; RESP 16–29; TEMP 95.3–97.9; O2SAT 94–99
[2017-01-10] MEDS: ACETAMINOPHEN 325 MG TAB PO PRN (00:40)
[2017-01-10] MEDS: PIPERACIL-TAZO 3.375 GM PREMIX 50 ML IV SCH ×4 (01:39→20:53)
[2017-01-10] MEDS: CHLORHEXIDINE GLUCONATE 2 % 1 PACK (2 CLOTHS) TOP SCH (03:55)
[2017-01-10] MEDS: RESP: ALBUTEROL 2.5 MG/IPRATROPIUM 0.5 MG NEB (PRN) INH (05:20)
[2017-01-10] MEDS ORDERED: ASPIRIN 325 MG TAB PO ONE (07:15)
[2017-01-10 08:21] LABS: CREATINE KINASE 46 U/L (39-308)
--- NOTE | 2017-01-10 10:28 | HHI.PR ---
Subjective Remarks Pt reports some chest pressure across the entire chest last night which lasted a few hours then resolved. CE and EKG were negative He also reported a tingling/numbness sensation in all ten toes that began at the same time and lasted for a few hours yesterday evening. Pt has been afebrile since 01/08 but pt still having profuse sweating and soaking through the sheets Objective Vitals Vital Signs Date Time Temp Pulse Resp B/P (MAP) Pulse Ox O2 Delivery O2 Flow Rate FiO2 01/10/17 08:00 95.3 61 18 141/85 (103) 95 01/10/17 04:00 95.5 52 18 125/79 (94) 95 01/10/17 00:00 95.7 61 18 129/78 (95) 95 01/09/17 20:00 96.0 67 18 121/70 (87) 94 01/09/17 16:00 96.4 67 16 121/78 (92) 93 01/09/17 12:00 97.9 73 18 115/71 (86) 94 Result Diagram: 01/07/17 1330 01/07/17 1330 Other Results Laboratory Tests Test 01/08/17 17:45 01/09/17 05:26 01/10/17 07:15 Iron Level 30 MCG/DL Total Iron Binding Capacity 179 MCG/DL Percent Iron Saturation 16.7 % Ferritin 464 NG/ML HIV (1&2) Antibody NEGATIVE Total Bilirubin 0.9 MG/DL Direct Bilirubin 0.5 MG/DL Indirect Bilirubin 0.4 MG/DL Aspartate Amino Transf (AST/SGOT) 50 U/L Alanine Aminotransferase (ALT/SGPT) 115 U/L Alkaline Phosphatase 405 U/L Total Creatine Kinase 42 U/L 46 U/L Total Protein 7.0 GM/DL Albumin 2.4 GM/DL Troponin I LESS THAN 0.02 NG/ML Imaging Last Impressions Chest CT 01/06/17 0000 Signed Impressions: Service Date/Time: Saturday, January 07, 2017 00:47 - CONCLUSION: Bilateral lower lobe airspace disease left greater than right likely pneumonia. Vladimir Red MD Abdomen/Pelvis CT 01/05/17 0752 Signed Impressions: Service Date/Time: Thursday, January 05, 2017 08:09 - CONCLUSION: 1. Bibasilar atelectatic changes with no confluent infiltrate. 2. Isolated gallstone in the gallbladder lumen. 3. CT findings no prior mesh repair possibly for bilateral inguinal hernia or lower anterior abdominal wall hernia. 4. Mild prominence of the prostate Cristo Choudhury MD Thoracic Spine MRI 01/05/17 Signed Impressions: Service Date/Time: Thursday, January 05, 2017 12:36 - CONCLUSION: 1. Tiny bilateral pleural effusions and bibasilar consolidations. 2. Central canal is patent. No vertebral compression deformities. Javed Hawkins Jr., MD Lumbar Spine MRI 01/05/17 Signed Impressions: Service Date/Time: Thursday, January 05, 2017 12:36 - CONCLUSION: 1. No acute abnormality. Javed Hawkins Jr., MD Lumbar Puncture Fluoroscopy 01/05/17 Signed Impressions: Service Date/Time: Thursday, January 05, 2017 09:31 - CONCLUSION: Uncomplicated fluoroscopically guided lumbar puncture with pressures as above. Cristo Choudhury MD Liver Ultrasound 01/05/17 Signed Impressions: Service Date/Time: Thursday, January 05, 2017 13:55 - CONCLUSION: 1. Hepatosplenomegaly. 2. Heterogeneous echotexture of the liver but no focal mass seen. No significant biliary ductal dilation identified. 3. 3 mm cholesterol polyp adherent to the gallbladder wall. Mike Cary MD Head CT 01/05/17 Signed Impressions: Service Date/Time: Thursday, January 05, 2017 08:12 - CONCLUSION: 1. 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 2. Nothing acute. Cristo Choudhury MD Chest X-Ray 01/05/17 Signed Impressions: Service Date/Time: Thursday, January 05, 2017 15:07 - CONCLUSION: No acute disease. Javed Hawkins Jr., MD Cervical Spine MRI 01/05/17 Signed Impressions: Service Date/Time: Thursday, January 05, 2017 12:36 - CONCLUSION: There is subtle enhancement interspinous ligaments between C2-C3, C3-C4, C4-C5. Controlled flexion extension films may be of benefit to exclude ligamentous instability. present as well. This can be seen with ligamentous injury. This would be very unusual place for infection. No other abnormalities appreciated. Tiago Cary MD FACR Objective Remarks General: NAD, AAOx3 Chest: Improved aeration, no crackles Cardiac: Regular Abd: +BS, soft ND/NT Ext: No edema A/P Problem List: (1) Fever ICD Codes: R50.9 - Fever, unspecified Status: Acute Plan: Syncope/Collapse Persistent Fever Abdomen pain Elevation LFT Elevated esr Weight loss - Pt presented after an episode of syncope/collapse. Pt also reported a 2 week hx of progressive abdomen pains, general weakness, fatigue, subjective fever/chills, night sweats and a recent 25pound weight loss (unintentional). - Pt was noted to have fevers/chills/rigors during admission. - Pt was admitted to ICU from the ED - initial workup by ED/ICU/Neuro included LP,MRI c/t/l spine, ct a/p x 2, liver u/s. They were initially concerned about G. [place] due to recent influenza shot. No evidence for meningitis or GBS. - General surg eval of abdomen and they do not feel that the mesh is a likely cause for the pain/fevers/weight loss etc. - 2D echo essential nml. no vegetation - Liver US --> Hepatosplenomegaly. Heterogeneous echotexture of the liver but no focal mass seen. No significant biliary ductal dilation identified. 3 mm cholesterol polyp adherent to the gallbladder wall. - CT Abd/.pelvis (01/05) --> Bibasilar atelectatic changes with no confluent infiltrate. Isolated gallstone in the gallbladder lumen. CT findings no prior mesh repair possibly for bilateral inguinal hernia or lower anterior abdominal wall hernia. Mild prominence of the prostate - Continue w/up and monitoring inpatient as the diagnosis is not clear at this point. Infectious/malignant/autoimmune processes are all in the differential. - Cont abx for an apparent pneumonia on CT and by exam. mostly left lung. Cont zosyn, Azithromycin added on 01/09 - Appreciate ID consultation - ID recommending MRCP, we will obtain this today -f/u pending cx's and autoimmune w/up. ADDENDUM: - At 11:30AM pt started having rigors and chills. HALICAT was called as there was concern about possible seizure activity and his respirations increased to 29 breaths/min. Pts temp was 95 and BP was elevated with systolic BP 170. When we arrived to the room, pt was able to speak clearly and remembered all that has been happening. He states that he had sudden onset of shaking and chills which is uncontrolled. This seems to come in waves and lasts about 30 secs to a minute. - Pt did not appear to be having any seizures but we have not identified a clear source of infection - We will transfer the pt to ICU for closer monitoring - CBC, CMP, CXR and EKG are ordered - Panel Saw Operator was informed about the patient just in case the pt starts to clinically decline. (2) Abdominal pain ICD Codes: R10.9 - Unspecified abdominal pain Status: Acute (3) Syncope and collapse ICD Codes: R55 - Syncope and collapse Status: Acute (4) Weight loss, unintentional ICD Codes: R63.4 - Abnormal weight loss Status: Acute (5) Generalized weakness ICD Codes: R53.1 - Weakness Status: Acute Assessment and Plan Patient examined. Assessment and plan formulated with Giovana Shepherd PA-C. I agree with the above. Halicat called. I went to bedside. Pt was intermittently having severe muscle contractions but no sz activity. He expressed that he would feel cold then these violent muscle spasm/contratctions would occur. no fever at present. vitals stable.Pt was talking to me with eyes clothes. he was breathing fast and panting. Denies any specific pain. no n/v/d. Unclear to the etiology of this pt's sx's. Extensive infection wup so far only shows possible pna left lung and he is on zosyn/azithro. ID following. will get mrcp and if neg then wbc tagged scan. updated pt and family. Given the unclear diagnosis and severe symptoms we will move him to [facility] for closer monitoring. Giovana Shepherd Jan 10, 2017 10:28 Sai Crocker MD Jan 10, 2017 14:21
[2017-01-10] MEDS: AZITHROMYCIN INJ 500 MG in SODIUM CHLOR 0.9% 250 ML INJ 250 ML IV SCH (11:49)
--- NOTE | 2017-01-10 12:12 | RADRPT ---
EXAM DATE/TIME: 01/10/2017 11:13 [facility] COMPARISON: CHEST SINGLE AP, January 09, 2017, 6:44. INDICATIONS : Shortness of breaeth, Halicat. MEDICAL HISTORY : Gastroesophageal reflux disease. SURGICAL HISTORY : Hernia repair. ENCOUNTER: Subsequent ACUITY: 4 - 6 days PAIN SCORE: 0/10 LOCATION: Bilateral chest FINDINGS: Single AP view of the chest. Patchy bilateral lung base opacity unchanged. Cardiomediastinal silhouet te unchanged. No evidence of pleural effusion or pneumothorax. CONCLUSION: Patchy bilateral lower lungs opacity. No significant interval change. Julio Schaefer MD on January 10, 2017 at 12:10 Board Certified Radiologist. This report was verified electronically.
[2017-01-10] MEDS: PANTOPRAZOLE SODIUM 40 MG VIAL IV PUSH SCH (12:34)
[2017-01-10 13:21] LABS: BLOOD, URINE NEG (NEG); GLUCOSE,URINE NEG (NEG); KETONE, URINE NEG (NEG); NITRITE,URINE NEG (NEG); PH, URINE 7.5 (5.0-8.5); URINE COLOR LIGHT-YELLOW (YELLW/STRAW)
[2017-01-10 13:31] LABS: AUTOMATED NEUTROPHIL # 8.6 TH/MM3 (1.8-7.7); BASOPHIL # 0.1 TH/MM3 (0-0.2); BASOPHIL % 0.8 % (0.0-2.0); EOSINOPHIL # 0.1 TH/MM3 (0-0.4); EOSINOPHIL % 0.8 % (0.0-4.0); HEMATOCRIT 35.1 % (39.0-51.0); HEMO FLAGS DIFF FINAL; LYMPHOCYTE # 1.1 TH/MM3 (1.0-4.8); MEAN CORPUSCULAR HEMOGLOBIN 29.3 PG (27.0-34.0); MEAN CORPUSCULAR HGB CONC 33.7 % (32.0-36.0); MONO % 4.2 % (0.0-8.0); NEUT % 83.2 % (16.0-70.0); PLATELET COUNT 351 TH/MM3 (150-450); RED BLOOD COUNT 4.04 MIL/MM3 (4.50-5.90); RED CELL DISTRIBUTION WIDTH 12.8 % (11.6-17.2); WHITE BLOOD COUNT 10.3 TH/MM3 (4.0-11.0)
[2017-01-10 13:44] LABS: COMMENT (UR) CULT NOT INDICATED; CULTURE IF INDICATED CULT NOT INDICATED
[2017-01-10 13:48] LABS: ALT (GPT) 138 U/L (12-78); ANION GAP 7 MEQ/L (5-15); AST (GOT) 82 U/L (15-37); BICARBONATE 27.1 MEQ/L (21.0-32.0); BLOOD UREA NITROGEN 16 MG/DL (7-18); CHLORIDE 106 MEQ/L (98-107); GLOMERULAR FILTRATION RATE 103 ML/MIN (>89); POTASSIUM 3.6 MEQ/L (3.5-5.1); SODIUM (NA) 140 MEQ/L (136-145)
[2017-01-10 13:50] LABS: ALKALINE PHOSPHATASE 371 U/L (45-117); TOTAL BILIRUBIN ADULT 0.4 MG/DL (0.2-1.0)
[2017-01-10] MEDS: LORazepam 1 MG TAB PO PRN (14:33)
[2017-01-10 15:13] LABS: EBV VCA IgM Negative (Negative)
[2017-01-10 15:25] LABS: LACTIC ACID GHOST NOT REPORTABLE
--- NOTE | 2017-01-10 15:58 | EKG ---
Date Performed: 01/10/2017 Time Performed: 06:50:06 PTAGE: 61 years EKG: Sinus bradycardia. Compared to prior tracing no significant change Normal ECG except for ra te PREVIOUS TRACING : 01/05/17 @ 0800 DOCTOR: Skyler Newberry Interpretating Date/Time 01/10/2017 15:57:30
--- NOTE | 2017-01-10 15:58 | EKG ---
Date Performed: 01/10/2017 Time Performed: 11:26:39 PTAGE: 61 years EKG: SINUS TACHYCARDIA Compared to prior tracing no significant change ABNORMAL RHYTHM ECG PREVIOUS TRACING : 01/10/2017 06.50 DOCTOR: Skyler Newberry Interpretating Date/Time 01/10/2017 15:57:01
--- NOTE | 2017-01-10 16:50 | HHI.IDPN ---
Subjective Subjective Remarks ID COVERAGE 61 year old male admitted to hospital for abdominal pain, fever, sweats. Chart reviewed No fever x >24 hours Abdominal pain better today No cough or congestion No CP Not SOB No N/V No diarrhea Voiding ok Has abnormal LFTs. Elevated ESR and CRP. CT A/P with gallstone but not distended. Has bibasilar infiltrates but no PNA symptoms. Has had fevers, last fever 01/08. Continues to have drenching sweats. Antibiotics Zosyn Zithromax Current Medications Medications (Trade) Dose Ordered Sig/Karishma Route Start Time Stop Time Status Last Admin (NS Flush) 2 ml UNSCH PRN IV FLUSH 01/05/17 08:00 01/09/17 07:36 (Duoneb Neb) 1 ampule Q2HR NEB PRN INH 01/05/17 11:45 01/10/17 05:20 Miscellaneous Information 1 Q361D XX 01/05/17 11:45 (Chlorhexidine 2% Cloth) 3 pack Taper DAILY@04 TOP 01/06/17 04:00 01/02/18 03:59 (Chlorhexidine 2% Cloth) 3 pack UNSCH PRN TOP 01/05/17 11:45 (D50w (Vial) Inj) 50 ml UNSCH PRN IV PUSH 01/05/17 11:45 (Glucagon Inj) 1 mg UNSCH PRN OTHER 01/05/17 11:45 (Protonix Inj) 40 mg Q24H IV PUSH 01/05/17 13:00 01/10/17 12:34 (Morphine Inj) 2 mg Q3H PRN IV PUSH 01/05/17 20:30 01/06/17 20:29 Piperacillin Sod/ Tazobactam Sod 50 ml @ 100 mls/hr Q6H IV 01/06/17 20:00 01/10/17 12:35 (Ultram) 50 mg Q4H PRN PO 01/08/17 12:00 01/09/17 07:35 (Tylenol) 650 mg Q4H PRN PO 01/08/17 18:30 01/10/17 00:40 Azithromycin 500 mg/Sodium Chloride 250 ml @ 250 mls/hr Q24H IV 01/09/17 11:00 01/10/17 11:49 (Ativan) 1 mg Q6H PRN PO 01/10/17 12:15 01/10/17 14:33 Lines PIV Past Medical History Hyperlipidemia Previous hernia repair one year ago. Carpal tunnel surgery. Multiple orthopedic surgeries. Allergies: Coded Allergies: No Known Allergies (Verified Allergy, Unknown, 01/05/17) Objective . Vital Signs Date Time Temp Pulse Resp B/P (MAP) Pulse Ox O2 Delivery O2 Flow Rate FiO2 01/10/17 14:14 99 21 01/10/17 14:07 97.7 01/10/17 12:26 97.9 97 16 147/83 (104) 01/10/17 11: 95.7 71 22 170/93 (118) 99 01/10/17 11:00 96.1 01/10/17 11:00 95.8 74 29 156/84 (108) 99 01/10/17 10:50 96.1 29 01/10/17 10:40 96.1 60 18 102/71 (81) 94 01/10/17 08:00 95.3 61 18 141/85 (103) 95 01/10/17 04:00 95.5 52 18 125/79 (94) 95 01/10/17 00:00 95.7 61 18 129/78 (95) 95 01/09/17 20:00 96.0 67 18 121/70 (87) 94 01/10/17 01/10/17 01/11/17 15:00 23:00 07:00 Output Total 900 ml Balance -900 ml Output Urine Total 900 ml . Laboratory Tests Test 01/10/17 13:13 White Blood Count 10.3 TH/MM3 Red Blood Count 4.04 MIL/MM3 Hemoglobin 11.8 GM/DL Hematocrit 35.1 % Mean Corpuscular Volume 87.0 FL Mean Corpuscular Hemoglobin 29.3 PG Mean Corpuscular Hemoglobin Concent 33.7 % Red Cell Distribution Width 12.8 % Platelet Count 351 TH/MM3 Mean Platelet Volume 7.4 FL Neutrophils (%) (Auto) 83.2 % Lymphocytes (%) (Auto) 11.0 % Monocytes (%) (Auto) 4.2 % Eosinophils (%) (Auto) 0.8 % Basophils (%) (Auto) 0.8 % Neutrophils # (Auto) 8.6 TH/MM3 Lymphocytes # (Auto) 1.1 TH/MM3 Monocytes # (Auto) 0.4 TH/MM3 Eosinophils # (Auto) 0.1 TH/MM3 Basophils # (Auto) 0.1 TH/MM3 CBC Comment DIFF FINAL Differential Comment Laboratory Tests Test 01/08/17 17:45 01/09/17 05:26 01/10/17 07:15 01/10/17 13:13 Iron Level 30 MCG/DL Total Iron Binding Capacity 179 MCG/DL Percent Iron Saturation 16.7 % Ferritin 464 NG/ML Total Bilirubin 0.9 MG/DL 0.4 MG/DL Direct Bilirubin 0.5 MG/DL Indirect Bilirubin 0.4 MG/DL Aspartate Amino Transf (AST/SGOT) 50 U/L 82 U/L Alanine Aminotransferase (ALT/SGPT) 115 U/L 138 U/L Alkaline Phosphatase 405 U/L 371 U/L Total Creatine Kinase 42 U/L 46 U/L Total Protein 7.0 GM/DL 6.8 GM/DL Albumin 2.4 GM/DL 2.2 GM/DL Troponin I LESS THAN 0.02 NG/ML Blood Urea Nitrogen 16 MG/DL Creatinine 0.77 MG/DL Random Glucose 134 MG/DL Calcium Level 8.8 MG/DL Sodium Level 140 MEQ/L Potassium Level 3.6 MEQ/L Chloride Level 106 MEQ/L Carbon Dioxide Level 27.1 MEQ/L Anion Gap 7 MEQ/L Estimat Glomerular Filtration Rate 103 ML/MIN Lactic Acid Level 2.2 mmol/L Microbiology Date/Time Source Procedure Growth Status 01/10/17 13:13 Blood Peripheral Aerobic Blood Culture Pending Received 01/10/17 13:13 Blood Peripheral Anaerobic Blood Culture Pending Received 01/10/17 13:06 Blood Peripheral Aerobic Blood Culture Pending Received 01/10/17 13:06 Blood Peripheral Anaerobic Blood Culture Pending Received 01/08/17 19:14 Blood Peripheral Aerobic Blood Culture - Preliminary NO GROWTH IN 2 DAYS Resulted 01/08/17 19:14 Blood Peripheral Anaerobic Blood Culture - Preliminary NO GROWTH IN 2 DAYS Resulted 01/08/17 19:14 Blood Peripheral Aerobic Blood Culture - Preliminary NO GROWTH IN 2 DAYS Resulted 01/08/17 19:14 Blood Peripheral Anaerobic Blood Culture - Preliminary NO GROWTH IN 2 DAYS Resulted 01/08/17 12:58 Urine Random Urine Legionella Antigen - Final PRESUMPTIVE NEGATIVE FOR LEGIONELLA P... Complete 01/08/17 12:58 Urine Random Urine Streptococcus pneumoniae Antigen (M - Final PRESUMPTIVE NEGATIVE FOR STREPTOCOCCU... Complete Imaging Last Impressions Chest X-Ray 01/10/17 0000 Signed Impressions: Service Date/Time: Tuesday, January 10, 2017 11:13 - CONCLUSION: Patchy bilateral lower lungs opacity. No significant interval change. Julio Schaefer MD Chest CT 01/06/17 0000 Signed Impressions: Service Date/Time: Saturday, January 07, 2017 00:47 - CONCLUSION: Bilateral lower lobe airspace disease left greater than right likely pneumonia. Vladimir Red MD Abdomen/Pelvis CT 01/05/17 0752 Signed Impressions: Service Date/Time: Thursday, January 05, 2017 08:09 - CONCLUSION: 1. Bibasilar atelectatic changes with no confluent infiltrate. 2. Isolated gallstone in the gallbladder lumen. 3. CT findings no prior mesh repair possibly for bilateral inguinal hernia or lower anterior abdominal wall hernia. 4. Mild prominence of the prostate Cristo Choudhury MD Thoracic Spine MRI 01/05/17 0000 Signed Impressions: Service Date/Time: Thursday, January 05, 2017 12:36 - CONCLUSION: 1. Tiny bilateral pleural effusions and bibasilar consolidations. 2. Central canal is patent. No vertebral compression deformities. Javed Hawkins Jr., MD Lumbar Spine MRI 01/05/17 0000 Signed Impressions: Service Date/Time: Thursday, January 05, 2017 12:36 - CONCLUSION: 1. No acute abnormality. Javed Hawkins Jr., MD Lumbar Puncture Fluoroscopy 01/05/17 0000 Signed Impressions: Service Date/Time: Thursday, January 05, 2017 09:31 - CONCLUSION: Uncomplicated fluoroscopically guided lumbar puncture with pressures as above. Cristo Choudhury MD Liver Ultrasound 01/05/17 0000 Signed Impressions: Service Date/Time: Thursday, January 05, 2017 13:55 - CONCLUSION: 1. Hepatosplenomegaly. 2. Heterogeneous echotexture of the liver but no focal mass seen. No significant biliary ductal dilation identified. 3. 3 mm cholesterol polyp adherent to the gallbladder wall. Mike Cary MD Head CT 01/05/17 0000 Signed Impressions: Service Date/Time: Thursday, January 05, 2017 08:12 - CONCLUSION: 1. 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 2. Nothing acute. Cristo Choudhury MD Cervical Spine MRI 01/05/17 0000 Signed Impressions: Service Date/Time: Thursday, January 05, 2017 12:36 - CONCLUSION: There is subtle enhancement interspinous ligaments between C2-C3, C3-C4, C4-C5. Controlled flexion extension films may be of benefit to exclude ligamentous instability. present as well. This can be seen with ligamentous injury. This would be very unusual place for infection. No other abnormalities appreciated. Tiago Cary MD FACR Physical Exam GENERAL: Awake and alert, not indistress SKIN: No jaundice, rashes, or lesions. Skin temperature appropriate. Not diaphoretic. HEAD: Atraumatic. Normocephalic. EYES: Pupils equal and round and reactive. Extraocular motions intact. No scleral icterus. No injection or drainage. Fundi not examined. ENT: Hearing grossly normal. Nose without bleeding or purulent drainage. Oral mucosae without visible erythema, exudates, masses, or lesions. NECK: Trachea midline. CARDIOVASCULAR: Regular rate and rhythm without murmurs, gallops, or rubs. No JVD. Peripheral pulses symmetric. RESPIRATORY/CHEST: Symmetric, unlabored respirations. Clear to auscultation. Breath sounds equal bilaterally. No wheezes, rales, or rhonchi. GASTROINTESTINAL: Abdomen soft, non-tender, nondistended. No hepato-splenomegaly , or palpable masses. No guarding. Bowel sounds present. GENITOURINARY: Without palpable bladder distension. MUSCULOSKELETAL: Extremities without clubbing, cyanosis, or edema. No joint tenderness or effusion noted. No calf tenderness. No mottling or clubbing. NEUROLOGICAL: Awake and alert. Motor and sensory grossly within normal limits. Follows commands. Clear speech . Moves all extremities. PSYCHIATRIC: No obvious anxiety/depression. no apparent hallucinations or other psychotic thought process. LINE: No evidence of infection Assessment & Plan Remarks FUO Abd LFTs Hx hernia repair with mesh Bibasilar infiltrates but clinically no PNA complaints Weight loss PLAN: Continue Zosyn Continue Zithromax Follow C/S ? further liver w/u (MRCP? Consider whole body gallium scan as part of FUO work-up Monitor progress Cristina Kimball MD Jan 10, 2017 16:50
[2017-01-11] VITALS (17 sets, daily range): BP systolic 114–133; BP diastolic 68–83; PULSE 61–89; RESP 19–26; TEMP 98.2–99.2; O2SAT 90–99
[2017-01-11] MEDS: PIPERACIL-TAZO 3.375 GM PREMIX 50 ML IV SCH ×4 (02:00→19:58)
[2017-01-11] MEDS: LORazepam 1 MG TAB PO PRN (03:28)
[2017-01-11] MEDS: CHLORHEXIDINE GLUCONATE 2 % 1 PACK (2 CLOTHS) TOP SCH (04:00)
[2017-01-11] MEDS: traMADol HCL 50 MG TAB PO PRN (07:48)
[2017-01-11] MEDS ORDERED: LORazepam 2 MG/ML VIAL IV PUSH ONE (08:45)
--- NOTE | 2017-01-11 09:51 | HHI.PR ---
Subjective Remarks had one shaking and muscle contraction episode overnight. feels better with ativan. Objective Vitals mostly talks with eyes closed heart reg lung basilar crackles abd s/nt ext no pitting. Vital Signs Date Time Temp Pulse Resp B/P (MAP) Pulse Ox O2 Delivery O2 Flow Rate FiO2 01/11/17 07:49 90 21 01/11/17 06:00 68 01/11/17 04:00 98.7 67 19 128/83 (98) 92 01/11/17 04:00 67 01/11/17 02:00 61 01/11/17 00:00 71 01/11/17 00:00 98.6 71 26 129/77 (94) 93 01/10/17 22:00 61 01/10/17 20:00 70 01/10/17 20:00 97.7 70 24 134/80 (98) 96 01/10/17 16:00 97.6 56 17 127/78 (94) 95 01/10/17 14:14 99 21 01/10/17 14:07 97.7 01/10/17 12:26 97.9 97 16 147/83 (104) 01/10/17 11:17 95.7 71 22 170/93 (118) 99 01/10/17 11:00 96.1 01/10/17 11:00 95.8 74 29 156/84 (108) 99 01/10/17 10:50 96.1 29 01/10/17 10:40 96.1 60 18 102/71 (81) 94 Result Diagram: 01/10/17 1313 01/10/17 1313 Imaging Last Impressions Chest CT 01/06/17 0000 Signed Impressions: Service Date/Time: Saturday, January 07, 2017 00:47 - CONCLUSION: Bilateral lower lobe airspace disease left greater than right likely pneumonia. Vladimir Red MD Abdomen/Pelvis CT 01/05/17 0752 Signed Impressions: Service Date/Time: Thursday, January 05, 2017 08:09 - CONCLUSION: 1. Bibasilar atelectatic changes with no confluent infiltrate. 2. Isolated gallstone in the gallbladder lumen. 3. CT findings no prior mesh repair possibly for bilateral inguinal hernia or lower anterior abdominal wall hernia. 4. Mild prominence of the prostate Cristo Choudhury MD Thoracic Spine MRI 01/05/17 Signed Impressions: Service Date/Time: Thursday, January 05, 2017 12:36 - CONCLUSION: 1. Tiny bilateral pleural effusions and bibasilar consolidations. 2. Central canal is patent. No vertebral compression deformities. Javed Hawkins Jr., MD Lumbar Spine MRI 01/05/17 Signed Impressions: Service Date/Time: Thursday, January 05, 2017 12:36 - CONCLUSION: 1. No acute abnormality. Javed Hawkins Jr., MD Lumbar Puncture Fluoroscopy 01/05/17 Signed Impressions: Service Date/Time: Thursday, January 05, 2017 09:31 - CONCLUSION: Uncomplicated fluoroscopically guided lumbar puncture with pressures as above. Cristo Choudhury MD Liver Ultrasound 01/05/17 Signed Impressions: Service Date/Time: Thursday, January 05, 2017 13:55 - CONCLUSION: 1. Hepatosplenomegaly. 2. Heterogeneous echotexture of the liver but no focal mass seen. No significant biliary ductal dilation identified. 3. 3 mm cholesterol polyp adherent to the gallbladder wall. Mike Cary MD Head CT 01/05/17 Signed Impressions: Service Date/Time: Thursday, January 05, 2017 08:12 - CONCLUSION: 1. 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 2. Nothing acute. Cristo Choudhury MD Chest X-Ray 01/05/17 Signed Impressions: Service Date/Time: Thursday, January 05, 2017 15:07 - CONCLUSION: No acute disease. Javed Hawkins Jr., MD Cervical Spine MRI 01/05/17 Signed Impressions: Service Date/Time: Thursday, January 05, 2017 12:36 - CONCLUSION: There is subtle enhancement interspinous ligaments between C2-C3, C3-C4, C4-C5. Controlled flexion extension films may be of benefit to exclude ligamentous instability. present as well. This can be seen with ligamentous injury. This would be very unusual place for infection. No other abnormalities appreciated. Tiago Cary MD FACR A/P Problem List: (1) Fever ICD Codes: R50.9 - Fever, unspecified Status: Acute Plan: Syncope/Collapse Persistent Fever Abdomen pain Elevation LFT Elevated esr Weight loss - Pt presented after an episode of syncope/collapse. Pt also reported a 2 week hx of progressive abdomen pains, general weakness, fatigue, subjective fever/chills, night sweats and a recent 25pound weight loss (unintentional). - Pt was noted to have fevers/chills/rigors during admission. - Pt was admitted to ICU from the ED - initial workup by ED/ICU/Neuro included LP,MRI c/t/l spine, ct a/p x 2, liver u/s. They were initially concerned about G. [place] due to recent influenza shot. No evidence for meningitis or GBS. - General surg eval of abdomen and they do not feel that the mesh is a likely cause for the pain/fevers/weight loss etc. - 2D echo essential nml. no vegetation - Liver US --> Hepatosplenomegaly. Heterogeneous echotexture of the liver but no focal mass seen. No significant biliary ductal dilation identified. 3 mm cholesterol polyp adherent to the gallbladder wall. - CT Abd/.pelvis (01/05) --> Bibasilar atelectatic changes with no confluent infiltrate. Isolated gallstone in the gallbladder lumen. CT findings no prior mesh repair possibly for bilateral inguinal hernia or lower anterior abdominal wall hernia. Mild prominence of the prostate - Continue w/up and monitoring inpatient as the diagnosis is not clear at this point. Infectious/malignant/autoimmune processes are all in the differential. - Cont abx for an apparent pneumonia on CT and by exam. mostly left lung. Cont zosyn, Azithromycin added on 01/09 - At 11:30AM on 01/10 pt started having rigors and chills. HALICAT was called as there was concern about possible seizure activity and his respirations increased to 29 breaths/min. Pts temp was 95 and BP was elevated with systolic BP 170. When we arrived to the room, pt was able to speak clearly and remembered all that has been happening. He states that he had sudden onset of shaking and chills which is uncontrolled. This seems to come in waves and lasts about 30 secs to a minute. -mrcp today to look for infectious focus and explanation of elevated LFT, if negative then consider tagged wbc scan. updated pt and . (2) Abdominal pain ICD Codes: R10.9 - Unspecified abdominal pain Status: Acute (3) Syncope and collapse ICD Codes: R55 - Syncope and collapse Status: Acute (4) Weight loss, unintentional ICD Codes: R63.4 - Abnormal weight loss Status: Acute (5) Generalized weakness ICD Codes: R53.1 - Weakness Status: Acute Sai Crocker MD Jan 11, 2017 09:51
--- NOTE | 2017-01-11 12:14 | RADRPT ---
EXAM DATE/TIME: 01/11/2017 10:04 [place] COMPARISON: CT ABDOMEN & PELVIS W CONTRAST, January 05, 2017, 21:17. INDICATIONS : Cholelithiasis. MEDICAL HISTORY : Hypertension. SURGICAL HISTORY : Inguinal hernia repair. ENCOUNTER: Initial ACUITY: 1 week PAIN SCORE: 5/10 LOCATION: Abdomen. TECHNIQUE: Multiplanar, multisequence magnetic resonance imaging of the abdomen was performed. High-resolution 3D dataset was utilized to reconstruct maximum-intensity projection (MIP) images. FINDINGS: INTRAHEPATIC BILE DUCTS: Within normal limits. No significant anatomical variant is present. EXTRAHEPATIC BILE DUCTS: The common bile duct measures 4 mm No stone or filling defect is identified. GALLBLADDER: 3 mm stone near the fundus. LIVER: Normal size and signal intensity. No concerning liver lesion is identified on this non-contrast exam. PANCREAS: The main pancreatic duct is normal in size. There is no significant anatomical variant. Signal inte nsity is within normal limits. No mass is visualized on this non-contrast exam. OTHER: The remaining visualized structures demonstrate no acute abnormality on this non-contrast exam. CONCLUSION: 3 mm gallstone. Otherwise normal MRCP. There is no duct stone or ductal dilatation. No perceptible in flammatory changes. Geovanny Novak MD on January 11, 2017 at 12:07 Board Certified Radiologist. This report was verified electronically.
[2017-01-11] MEDS: AZITHROMYCIN INJ 500 MG in SODIUM CHLOR 0.9% 250 ML INJ 250 ML IV SCH (12:33)
[2017-01-11] MEDS: PANTOPRAZOLE SODIUM 40 MG VIAL IV PUSH SCH (12:33)
[2017-01-11] MEDS: ENOXAPARIN SODIUM 40 MG/0.4 ML SYRINGE SQ SCH (12:33)
--- NOTE | 2017-01-11 15:34 | HHI.IDPN ---
Subjective Subjective Remarks transfered to ICU yday hypothermic yday, nl temps today yday developped severe diffuse crampy abd pain Improved pain today denies diarrhea MRCP with gallstones, but nothing acute Antibiotics Zosyn Zithromax Lines PIV Past Medical History Hyperlipidemia Previous hernia repair one year ago. Carpal tunnel surgery. Multiple orthopedic surgeries. Allergies: Coded Allergies: No Known Allergies (Verified Allergy, Unknown, 01/05/17) Objective . Vital Signs Date Time Temp Pulse Resp B/P (MAP) Pulse Ox O2 Delivery O2 Flow Rate FiO2 01/11/17 14:00 88 01/11/17 12:00 99.2 82 22 125/72 (89) 96 01/11/17 12:00 82 01/11/17 10:00 72 01/11/17 08:00 99.0 70 24 118/70 (86) 92 01/11/17 08:00 70 01/11/17 07:49 90 21 01/11/17 06:00 68 01/11/17 04:00 98.7 67 19 128/83 (98) 92 01/11/17 04:00 67 01/11/17 02:00 61 01/11/17 00:00 71 01/11/17 00:00 98.6 71 26 129/77 (94) 93 01/10/17 22:00 61 01/10/17 20:00 70 01/10/17 20:00 97.7 70 24 134/80 (98) 96 01/10/17 16:00 97.6 56 17 127/78 (94) 95 . Laboratory Tests Test 01/10/17 13:13 White Blood Count 10.3 TH/MM3 Red Blood Count 4.04 MIL/MM3 Hemoglobin 11.8 GM/DL Hematocrit 35.1 % Mean Corpuscular Volume 87.0 FL Mean Corpuscular Hemoglobin 29.3 PG Mean Corpuscular Hemoglobin Concent 33.7 % Red Cell Distribution Width 12.8 % Platelet Count 351 TH/MM3 Mean Platelet Volume 7.4 FL Neutrophils (%) (Auto) 83.2 % Lymphocytes (%) (Auto) 11.0 % Monocytes (%) (Auto) 4.2 % Eosinophils (%) (Auto) 0.8 % Basophils (%) (Auto) 0.8 % Neutrophils # (Auto) 8.6 TH/MM3 Lymphocytes # (Auto) 1.1 TH/MM3 Monocytes # (Auto) 0.4 TH/MM3 Eosinophils # (Auto) 0.1 TH/MM3 Basophils # (Auto) 0.1 TH/MM3 CBC Comment DIFF FINAL Differential Comment Laboratory Tests Test 01/10/17 07:15 01/10/17 13:13 01/10/17 17:17 Total Creatine Kinase 46 U/L Troponin I LESS THAN 0.02 NG/ML Blood Urea Nitrogen 16 MG/DL Creatinine 0.77 MG/DL Random Glucose 134 MG/DL Total Protein 6.8 GM/DL Albumin 2.2 GM/DL Calcium Level 8.8 MG/DL Alkaline Phosphatase 371 U/L Aspartate Amino Transf (AST/SGOT) 82 U/L Alanine Aminotransferase (ALT/SGPT) 138 U/L Total Bilirubin 0.4 MG/DL Sodium Level 140 MEQ/L Potassium Level 3.6 MEQ/L Chloride Level 106 MEQ/L Carbon Dioxide Level 27.1 MEQ/L Anion Gap 7 MEQ/L Estimat Glomerular Filtration Rate 103 ML/MIN Lactic Acid Level 2.2 mmol/L 1.3 mmol/L Microbiology Date/Time Source Procedure Growth Status 01/10/17 13:13 Blood Peripheral Aerobic Blood Culture - Preliminary NO GROWTH IN 1 DAY Resulted 01/10/17 13:13 Blood Peripheral Anaerobic Blood Culture - Preliminary NO GROWTH IN 1 DAY Resulted 01/10/17 13:06 Blood Peripheral Aerobic Blood Culture - Preliminary NO GROWTH IN 1 DAY Resulted 01/10/17 13:06 Blood Peripheral Anaerobic Blood Culture - Preliminary NO GROWTH IN 1 DAY Resulted 01/08/17 19:14 Blood Peripheral Aerobic Blood Culture - Preliminary NO GROWTH IN 3 DAYS Resulted 01/08/17 19:14 Blood Peripheral Anaerobic Blood Culture - Preliminary NO GROWTH IN 3 DAYS Resulted 01/08/17 19:14 Blood Peripheral Aerobic Blood Culture - Preliminary NO GROWTH IN 3 DAYS Resulted 01/08/17 19:14 Blood Peripheral Anaerobic Blood Culture - Preliminary NO GROWTH IN 3 DAYS Resulted Imaging Last Impressions Cholangiopancreatography MRI 01/11/17 0000 Signed Impressions: Service Date/Time: Wednesday, January 11, 2017 10:04 - CONCLUSION: 3 mm gallstone. Otherwise normal MRCP. There is no duct stone or ductal dilatation. No perceptible inflammatory changes. Geovanny Novak MD Chest X-Ray 01/10/17 0000 Signed Impressions: Service Date/Time: Tuesday, January 10, 2017 11:13 - CONCLUSION: Patchy bilateral lower lungs opacity. No significant interval change. Julio Schaefer MD Chest CT 01/06/17 0000 Signed Impressions: Service Date/Time: Saturday, January 07, 2017 00:47 - CONCLUSION: Bilateral lower lobe airspace disease left greater than right likely pneumonia. Vladimir Red MD Abdomen/Pelvis CT 01/05/17 0752 Signed Impressions: Service Date/Time: Thursday, January 05, 2017 08:09 - CONCLUSION: 1. Bibasilar atelectatic changes with no confluent infiltrate. 2. Isolated gallstone in the gallbladder lumen. 3. CT findings no prior mesh repair possibly for bilateral inguinal hernia or lower anterior abdominal wall hernia. 4. Mild prominence of the prostate Cristo Choudhury MD Thoracic Spine MRI 01/05/17 0000 Signed Impressions: Service Date/Time: Thursday, January 05, 2017 12:36 - CONCLUSION: 1. Tiny bilateral pleural effusions and bibasilar consolidations. 2. Central canal is patent. No vertebral compression deformities. Javed Hawkins Jr., MD Lumbar Spine MRI 01/05/17 0000 Signed Impressions: Service Date/Time: Thursday, January 05, 2017 12:36 - CONCLUSION: 1. No acute abnormality. Javed Hawkins Jr., MD Lumbar Puncture Fluoroscopy 01/05/17 0000 Signed Impressions: Service Date/Time: Thursday, January 05, 2017 09:31 - CONCLUSION: Uncomplicated fluoroscopically guided lumbar puncture with pressures as above. Cristo Choudhury MD Liver Ultrasound 01/05/17 0000 Signed Impressions: Service Date/Time: Thursday, January 05, 2017 13:55 - CONCLUSION: 1. Hepatosplenomegaly. 2. Heterogeneous echotexture of the liver but no focal mass seen. No significant biliary ductal dilation identified. 3. 3 mm cholesterol polyp adherent to the gallbladder wall. Mike Cayr MD Head CT 01/05/17 0000 Signed Impressions: Service Date/Time: Thursday, January 05, 2017 08:12 - CONCLUSION: 1. 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 2. Nothing acute. Cristo Choudhury MD Cervical Spine MRI 01/05/17 0000 Signed Impressions: Service Date/Time: Thursday, January 05, 2017 12:36 - CONCLUSION: There is subtle enhancement interspinous ligaments between C2-C3, C3-C4, C4-C5. Controlled flexion extension films may be of benefit to exclude ligamentous instability. present as well. This can be seen with ligamentous injury. This would be very unusual place for infection. No other abnormalities appreciated. Tiago Cary MD FACR Physical Exam GENERAL: Awake and alert, not indistress SKIN: No jaundice, rashes, or lesions. Skin temperature appropriate. Not diaphoretic. EYES: Pupils equal and round and reactive. Extraocular motions intact. No scleral icterus. No injection or drainage. Fundi not examined. ENT: Oral mucosae without visible erythema, exudates, masses, or lesions. CARDIOVASCULAR: Regular rate and rhythm without murmurs, gallops, or rubs. No JVD. Peripheral pulses symmetric. RESPIRATORY/CHEST: Symmetric, unlabored respirations. Clear to auscultation. Breath sounds equal bilaterally. No wheezes, rales, or rhonchi. GASTROINTESTINAL: Abdomen soft, mildly tender in LLQ/RLQ w/.o guading or rebound , nondistended. Hutchison negative No hepato-splenomegaly, or palpable masses. No guarding. Bowel sounds present. GENITOURINARY: Without palpable bladder distension. MUSCULOSKELETAL: Extremities without clubbing, cyanosis, or edema. No joint tenderness or effusion noted. No calf tenderness. No mottling or clubbing. NEUROLOGICAL: Awake and alert. Motor and sensory grossly within normal limits. Follows commands. Clear speech . Moves all extremities. PSYCHIATRIC: No obvious anxiety/depression. no apparent hallucinations or other psychotic thought process. LINE: No evidence of infection Assessment & Plan Remarks FUO - fever resolved Bl clx negative CMV/HIV neg EBV cw past infx Abnormal LFTs MRCP w/o acute fingins, but confirmed gallbladder stopnes - resolving bilirubinemia ? passed stone hepatitis profile negatgive Hx hernia repair with mesh - no e/o mesh infx on imaging studies Bibasilar infiltrates but clinically no PNA complaints Weight loss Persistet abdominal pain w/o findings on imaging studies PLAN: Continue Zosyn x 7 days Continue Zithromax x 5 days chk lipase/amylase consult GI dw Dulce Delgado MD Jan 11, 2017 15:34
[2017-01-11] MEDS ORDERED: TUBERCULIN, PPD 5 UNITS/0.1 ML SYRINGE I-DERMAL ONE ×2 (17:15→18:30)
--- NOTE | 2017-01-11 17:42 | PD.CONS ---
HPI History of Present Illness This is a 61 year old male who presented to the ED for evaluation of malaise and generalized weakness. This was gradual onset, but progressively got worse to where he had no energy, spent a lot of time sleeping, this was associated with a decline in appetite, fevers, wt loss (25 ibs in the last 2 months) and spasm. Finally prior to admission, he had a syncopal episode, he was found by his unconscious in the shower. Patient has spasm episodes , one was witnessed today by the nurse, it resembles myoclonic seizures. He is conscious through the entire attack, he feels his extremities clench and not able to control them. He has been having lower abd tenderness, especially painful to touch, with radiation to lower back area. patient has a history of laparoscopic bilateral inguinal hernia repair with mesh by Dr. Cueva about 1 year ago. He did well until 2 months ago when he was lifting a couch and felt a tear in the right groin. GI have been consulted for evaluation of elevated LFTs. Patient denies previous hx of liver dz, denies heavy or daily alcohol intake. CT abdomen and pelvis shows gallstone. MRCP 3 mm gallstone, other valdez normal. Labs showed high Sed rate, and C-rp, Hepatitis panel negative, JOSE (-), AMA (P) , ASMA (-), EBV consistent with past infection, HIV (-), CMV (-), iorn saturation 16, Fe 464. A lumbar puncture, as well as total spine MRI with no acute abnormality. Patient denies N/V/D, melena or hematochezia. Patient has routine EGD/colonoscopy with Dr. delatorre, last scopes were 3 yrs ago. Patient has hx of [place] and has family hx of colon cancer ( father and uncle had it in their 40's). CT of the chest showed PNA. ID, GS, neurology on the case. (Juvenal Lee) PFSH Past Medical History Hyperlipidemia [place] Past Surgical History Bilateral left Inguinal hernia with mesh Carpal tunnel Orthopedic surgeries (Juvenal Lee) Coded Allergies: No Known Allergies (Verified Allergy, Unknown, 01/05/17) Medications Current Medications Medications (Trade) Dose Ordered Sig/Karishma Route Start Time Stop Time Status Last Admin (NS Flush) 2 ml UNSCH PRN IV FLUSH 01/05/17 08:00 01/09/17 07:36 (Duoneb Neb) 1 ampule Q2HR NEB PRN INH 01/05/17 11:45 01/10/17 05:20 Miscellaneous Information 1 Q361D XX 01/05/17 11:45 (Chlorhexidine 2% Cloth) Taper DAILY@04 TOP 01/06/17 04:00 01/02/18 03:59 (Chlorhexidine 2% Cloth) 3 pack UNSCH PRN TOP 01/05/17 11:45 (D50w (Vial) Inj) 50 ml UNSCH PRN IV PUSH 01/05/17 11:45 (Glucagon Inj) 1 mg UNSCH PRN OTHER 01/05/17 11:45 (Protonix Inj) 40 mg Q24H IV PUSH 01/05/17 13:00 01/11/17 12:33 (Morphine Inj) 2 mg Q3H PRN IV PUSH 01/05/17 20:30 01/06/17 20:29 Piperacillin Sod/ Tazobactam Sod 50 ml @ 100 mls/hr Q6H IV 01/06/17 20:00 01/11/17 14:00 (Ultram) 50 mg Q4H PRN PO 01/08/17 12:00 01/11/17 07:48 (Tylenol) 650 mg Q4H PRN PO 01/08/17 18:30 01/10/17 00:40 Azithromycin 500 mg/Sodium Chloride 250 ml @ 250 mls/hr Q24H IV 01/09/17 11:00 01/11/17 12:33 (Ativan) 1 mg Q6H PRN PO 01/10/17 12:15 01/11/17 03:28 (Lovenox Inj) 40 mg Q24H SQ 01/11/17 10:00 01/11/17 12:33 Family History Father and uncle had colon cancer in their 40's Social History moderate alcohol intake smokes cigars moderately no illicit drug use (Juvenal Lee) Review of Systems Constitutional: COMPLAINS OF: Fatigue, Weight loss, Dizziness, Change in appetite Endocrine: DENIES: Polyuria Eyes: DENIES: Double Vision Ears, nose, mouth, throat: DENIES: Hoarseness Respiratory: DENIES: Shortness of breath Cardiovascular: DENIES: Lower Extremity Edema Gastrointestinal: COMPLAINS OF: Abdominal pain, Anorexia, DENIES: Black stools , Bloody stools, Constipation, Diarrhea, Nausea, Vomiting, Difficulty Swallowing , Odynophagia, Swelling of Abdomen, Heartburn, Hematemesis Genitourinary: DENIES: Hematuria Musculoskeletal: DENIES: Neck pain Integumentary: DENIES: Jaundice Hematologic/lymphatic: DENIES: Bruising Immunologic/allergic: DENIES: Eczema Neurologic: DENIES: Abnormal gait Psychiatric: DENIES: Anxiety (Juvenal Lee) GI Exam Vitals I&O Vital Signs Date Time Temp Pulse Resp B/P (MAP) Pulse Ox O2 Delivery O2 Flow Rate FiO2 01/11/17 16:00 98.3 80 26 114/73 (87) 93 01/11/17 16:00 80 01/11/17 14:00 88 01/11/17 12:00 99.2 82 22 125/72 (89) 96 01/11/17 12:00 82 01/11/17 10:00 72 01/11/17 08:00 99.0 70 24 118/70 (86) 92 01/11/17 08:00 70 01/11/17 07:49 90 21 01/11/17 06:00 68 01/11/17 04:00 98.7 67 19 128/83 (98) 92 01/11/17 04:00 67 01/11/17 02:00 61 01/11/17 00:00 71 01/11/17 00:00 98.6 71 26 129/77 (94) 93 01/10/17 22:00 61 01/10/17 20:00 70 01/10/17 20:00 97.7 70 24 134/80 (98) 96 I/O 01/10/17 01/10/17 01/10/17 01/11/17 01/11/17 01/11/17 07:00 15:00 23:00 07:00 15:00 23:00 Intake Total 480 ml 1310 ml 650 ml 50 ml 250 ml Output Total 600 ml 900 ml 900 ml 1200 ml Balance -120 ml -900 ml 410 ml -550 ml 50 ml 250 ml Intake Oral 480 ml 960 ml 600 ml IV Total 350 ml 50 ml 50 ml 250 ml Output Urine Total 600 ml 900 ml 900 ml 1200 ml # Bowel Movements 0 0 Imaging Last Impressions Cholangiopancreatography MRI 01/11/17 0000 Signed Impressions: Service Date/Time: Wednesday, January 11, 2017 10:04 - CONCLUSION: 3 mm gallstone. Otherwise normal MRCP. There is no duct stone or ductal dilatation. No perceptible inflammatory changes. Geovanny Novak MD Chest X-Ray 01/10/17 0000 Signed Impressions: Service Date/Time: Tuesday, January 10, 2017 11:13 - CONCLUSION: Patchy bilateral lower lungs opacity. No significant interval change. Julio Schaefer MD Chest CT 01/06/17 0000 Signed Impressions: Service Date/Time: Saturday, January 07, 2017 00:47 - CONCLUSION: Bilateral lower lobe airspace disease left greater than right likely pneumonia. Vladimir Red MD Abdomen/Pelvis CT 01/05/17 0752 Signed Impressions: Service Date/Time: Thursday, January 05, 2017 08:09 - CONCLUSION: 1. Bibasilar atelectatic changes with no confluent infiltrate. 2. Isolated gallstone in the gallbladder lumen. 3. CT findings no prior mesh repair possibly for bilateral inguinal hernia or lower anterior abdominal wall hernia. 4. Mild prominence of the prostate Cristo Choudhury MD Thoracic Spine MRI 01/05/17 0000 Signed Impressions: Service Date/Time: Thursday, January 05, 2017 12:36 - CONCLUSION: 1. Tiny bilateral pleural effusions and bibasilar consolidations. 2. Central canal is patent. No vertebral compression deformities. Javed Hawkins Jr., MD Lumbar Spine MRI 01/05/17 0000 Signed Impressions: Service Date/Time: Thursday, January 05, 2017 12:36 - CONCLUSION: 1. No acute abnormality. Javed Hawkins Jr., MD Lumbar Puncture Fluoroscopy 01/05/17 0000 Signed Impressions: Service Date/Time: Thursday, January 05, 2017 09:31 - CONCLUSION: Uncomplicated fluoroscopically guided lumbar puncture with pressures as above. Cristo Choudhury MD Liver Ultrasound 01/05/17 0000 Signed Impressions: Service Date/Time: Thursday, January 05, 2017 13:55 - CONCLUSION: 1. Hepatosplenomegaly. 2. Heterogeneous echotexture of the liver but no focal mass seen. No significant biliary ductal dilation identified. 3. 3 mm cholesterol polyp adherent to the gallbladder wall. Mike Cary MD Head CT 01/05/17 0000 Signed Impressions: Service Date/Time: Thursday, January 05, 2017 08:12 - CONCLUSION: 1. 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 2. Nothing acute. Cristo Choudhury MD Cervical Spine MRI 01/05/17 0000 Signed Impressions: Service Date/Time: Thursday, January 05, 2017 12:36 - CONCLUSION: There is subtle enhancement interspinous ligaments between C2-C3, C3-C4, C4-C5. Controlled flexion extension films may be of benefit to exclude ligamentous instability. present as well. This can be seen with ligamentous injury. This would be very unusual place for infection. No other abnormalities appreciated. Tiago Cary MD FACR Laboratory Test 01/10/17 17:17 Lactic Acid Level 1.3 mmol/L Date/Time Source Procedure Growth Status 01/10/17 13:13 Blood Peripheral Aerobic Blood Culture - Preliminary NO GROWTH IN 1 DAY Resulted 01/10/17 13:13 Blood Peripheral Anaerobic Blood Culture - Preliminary NO GROWTH IN 1 DAY Resulted 01/05/17 10:04 Cerebral Spinal Fluid Lumbar Puncture Gram Stain - Final Complete 01/05/17 10:04 Cerebral Spinal Fluid Lumbar Puncture CSF Culture - Final NO GROWTH IN 72 HOURS Complete 01/08/17 12:58 Urine Random Urine Legionella Antigen - Final PRESUMPTIVE NEGATIVE FOR LEGIONELLA P... Complete 01/08/17 12:58 Urine Random Urine Streptococcus pneumoniae Antigen (M - Final PRESUMPTIVE NEGATIVE FOR STREPTOCOCCU... Complete Physical Examination HEENT: normocephalic; atraumatic; no jaundice. NECK: Neck is supple, no JVD, no lymphadenopathy. CHEST: Chest is clear to auscultation and percussion. CARDIAC: Regular rate and rhythm with no murmur gallop or rubs. ABDOMEN: Soft, nondistended, tenderness in lower abd to touch; no hepatosplenomegaly; bowel sounds are present in all four quadrants. EXTREMITIES: No clubbing, cyanosis, or edema. SKIN: Normal; no rash; no jaundice. SENIOR MANAGING DIRECTOR: No focal deficits; alert and oriented times three. (Juvenal Lee) Assessment and Plan Plan - Elevated LFTs- no evidence of biliary involvement. Non contrasted CT Abd/ .pelvis (01/05) --> Bibasilar atelectatic changes with no confluent infiltrate. Isolated gallstone in the gallbladder lumen. CT findings no prior mesh repair possibly for bilateral inguinal hernia or lower anterior abdominal wall hernia. Mild prominence of the prostate. MRCP 3 mm gallstone, other valdez normal. Second contrasted Ct Abd/.pelvis () --> no acute findings seen, hernia mesh is seen at the lower anterior abdominal wall with some minimal surrounding induration which may represent postoperative change, suspected small calcified gallstone. Liver US --> Hepatosplenomegaly. Heterogeneous echotexture of the liver but no focal mass seen. No significant biliary ductal dilation identified. 3 mm cholesterol polyp adherent to the gallbladder wall. Labs showed high Sed rate, and C-rp, Hepatitis panel negative, JOSE (-), AMA (P), ASMA (-), EBV consistent with past infection, HIV (-), CMV ( -), iorn saturation 16, Fe 464. Patient denies previous hx of liver dz, denies heavy or daily alcohol intake. - syncope/collapse/Malaise, gen. weakness- neurology work up included LP,MRI c/ t/l spine, ct a/p x 2. They were initially concerned about G. [place] due to recent influenza shot. No evidence for meningitis or GBS. 2D echo essential nml. no vegetation All blood cx and lumbar puncture no growth - lower abd pain- patient has a history of laparoscopic bilateral inguinal hernia repair with mesh by Dr. Cueva about 1 year ago. He did well until 2 months ago when he was lifting a couch and felt a tear in the right groin. GS don't feel this is related to the surg. - wt loss (25 ibs in the last 2 months) - ? seizures activities- Patient has spasm episodes , one was witnessed today by the nurse, it resembles myoclonic seizures. He is conscious through the entire attack, he feels his extremities clench and not able to control them. - PNA- on ct of the chest, he is on abx per ID, clinically not having symptoms - Hx of [place]- last EGD 3 yrs ago, not on ppi at home - Family hx of colon cancer ( father and uncle had it in their 40's). last colonoscopy 3 yrs ago Plan: - WILLIAM - Ceruloplasmin, alpha antitrypsin - If LFT continue to be high, consider liver bx - Consider EGD/colonoscopy once medically stable - ID, GS, neurology on the case. - Supportive care - Of note, patient tells me that [facility] and [facility] don't take his insurance any more - Patient was seen and examined by Dr. Jaramillo and myself and this note is written on his behalf. (Juvenal Lee) Physician Comments Patient seen and examined Agree with above Continue with current supportive care Monitor labs Workup for elevated liver function tests is in progress and so far has been unremarkable If all is negative then we will pursue a liver biopsy I'm not sure that the abdominal pain is linked to or is a part of the elevated liver function tests Consideration is for possible reaction to the mesh resulting in these symptoms (Han Jaramillo MD) Juvenal Lee Jan 11, 2017 17:42 Han Jaramillo MD Jan 11, 2017 20:34
[2017-01-11 18:00] LABS: AMYLASE 66 U/L (25-115)
[2017-01-11] MEDS: RESP: ALBUTEROL 2.5 MG/IPRATROPIUM 0.5 MG NEB (PRN) INH (20:05)
[2017-01-12] VITALS (16 sets, daily range): BP systolic 107–126; BP diastolic 62–75; PULSE 61–86; RESP 16–22; TEMP 98.1–98.9; O2SAT 95–99
[2017-01-12] MEDS: PIPERACIL-TAZO 3.375 GM PREMIX 50 ML IV SCH ×4 (01:57→20:59)
[2017-01-12] MEDS: CHLORHEXIDINE GLUCONATE 2 % 1 PACK (2 CLOTHS) TOP SCH (04:00)
[2017-01-12] MEDS: MORPHINE SULFATE 2 MG/ML INJ IV PUSH PRN (05:07)
[2017-01-12 05:15] LABS: AUTOMATED NEUTROPHIL # 6.2 TH/MM3 (1.8-7.7); BASOPHIL # 0.1 TH/MM3 (0-0.2); BASOPHIL % 0.6 % (0.0-2.0); EOSINOPHIL # 0.2 TH/MM3 (0-0.4); HEMATOCRIT 35.8 % (39.0-51.0); HEMO FLAGS DIFF FINAL; LYMPH % 12.1 % (9.0-44.0); MEAN CORPUSCULAR HEMOGLOBIN 29.7 PG (27.0-34.0); MEAN CORPUSCULAR HGB CONC 34.6 % (32.0-36.0); MONO % 8.1 % (0.0-8.0); NEUT % 76.2 % (16.0-70.0); PLATELET COUNT 407 TH/MM3 (150-450); RED BLOOD COUNT 4.16 MIL/MM3 (4.50-5.90); RED CELL DISTRIBUTION WIDTH 13.1 % (11.6-17.2); WHITE BLOOD COUNT 8.2 TH/MM3 (4.0-11.0)
[2017-01-12 05:40] LABS: MAGNESIUM 2.1 MG/DL (1.5-2.5); POTASSIUM 4.2 MEQ/L (3.5-5.1)
[2017-01-12 05:42] LABS: INDIRECT BILIRUBIN 0.2 MG/DL (0.0-0.8); TOTAL BILIRUBIN ADULT 0.4 MG/DL (0.2-1.0)
[2017-01-12] MEDS: traMADol HCL 50 MG TAB PO PRN (08:53)
[2017-01-12] MEDS: ENOXAPARIN SODIUM 40 MG/0.4 ML SYRINGE SQ SCH (10:34)
[2017-01-12] MEDS: AZITHROMYCIN INJ 500 MG in SODIUM CHLOR 0.9% 250 ML INJ 250 ML IV SCH (10:35)
--- NOTE | 2017-01-12 14:16 | HHI.GIFU ---
Subjective Remarks Resting in bed. States he is feeling much better. Has not had any fevers. No n /v. No longer having abdominal pain. (Naila Reyna) Objective Vitals I&O Vital Signs Date Time Temp Pulse Resp B/P (MAP) Pulse Ox O2 Delivery O2 Flow Rate FiO2 01/12/17 08:41 95 Nasal Cannula 2.00 01/12/17 08:00 98.3 66 22 115/74 (88) 96 01/12/17 06:00 61 01/12/17 05:00 70 18 115/73 (87) 95 01/12/17 04:00 68 01/12/17 04:00 98.3 68 19 118/75 (89) 98 01/12/17 03:00 66 20 121/73 (89) 99 01/12/17 02:00 70 01/12/17 02:00 74 20 119/70 (86) 96 01/12/17 00:00 98.1 82 20 122/70 (87) 97 01/12/17 00:00 68 01/11/17 23:00 78 22 123/72 (89) 96 01/11/17 22:00 78 01/11/17 22:00 81 22 130/72 (91) 96 01/11/17 21:00 89 26 119/68 (85) 95 01/11/17 20:05 97 Nasal Cannula 2.00 01/11/17 20:00 84 01/11/17 20:00 98.2 83 20 131/79 (96) 93 01/11/17 19:00 72 21 133/75 (94) 99 01/11/17 18:00 76 01/11/17 16:00 98.3 80 26 114/73 (87) 93 01/11/17 16:00 80 I/O 01/11/17 01/11/17 01/11/17 01/12/17 01/12/17 01/12/17 07:00 15:00 23:00 07:00 15:00 23:00 Intake Total 650 ml 50 ml 1740 ml 1110 ml Output Total 1200 ml 1600 ml 1400 ml Balance -550 ml 50 ml 140 ml -290 ml Intake Oral 600 ml 1440 ml 1060 ml IV Total 50 ml 50 ml 300 ml 50 ml Output Urine Total 1200 ml 1600 ml 1400 ml # Bowel Movements 0 0 0 Laboratory Laboratory Tests Test 01/11/17 17:15 01/11/17 19:12 01/12/17 04:34 Amylase Level 66 Lipase 282 White Blood Count 8.2 Red Blood Count 4.16 Hemoglobin 12.4 Hematocrit 35.8 Mean Corpuscular Volume 86.0 Mean Corpuscular Hemoglobin 29.7 Mean Corpuscular Hemoglobin Concent 34.6 Red Cell Distribution Width 13.1 Platelet Count 407 Mean Platelet Volume 7.3 Neutrophils (%) (Auto) 76.2 Lymphocytes (%) (Auto) 12.1 Monocytes (%) (Auto) 8.1 Eosinophils (%) (Auto) 3.0 Basophils (%) (Auto) 0.6 Neutrophils # (Auto) 6.2 Lymphocytes # (Auto) 1.0 Monocytes # (Auto) 0.7 Eosinophils # (Auto) 0.2 Basophils # (Auto) 0.1 CBC Comment DIFF FINAL Differential Comment Blood Urea Nitrogen 18 Creatinine 0.88 Random Glucose 104 Total Protein 6.6 Albumin 2.3 Calcium Level 8.8 Magnesium Level 2.1 Alkaline Phosphatase 367 Aspartate Amino Transf (AST/SGOT) 83 Alanine Aminotransferase (ALT/SGPT) 184 Total Bilirubin 0.4 Direct Bilirubin 0.2 Sodium Level 138 Potassium Level 4.2 Chloride Level 102 Carbon Dioxide Level 27.0 Anion Gap 9 Estimat Glomerular Filtration Rate 89 Indirect Bilirubin 0.2 Date/Time Source Procedure Growth Status 01/10/17 13:13 Blood Peripheral Aerobic Blood Culture - Preliminary NO GROWTH IN 2 DAYS Resulted 01/10/17 13:13 Blood Peripheral Anaerobic Blood Culture - Preliminary NO GROWTH IN 2 DAYS Resulted 01/05/17 10:04 Cerebral Spinal Fluid Lumbar Puncture Gram Stain - Final Complete 01/05/17 10:04 Cerebral Spinal Fluid Lumbar Puncture CSF Culture - Final NO GROWTH IN 72 HOURS Complete 01/08/17 12:58 Urine Random Urine Legionella Antigen - Final PRESUMPTIVE NEGATIVE FOR LEGIONELLA P... Complete 01/08/17 12:58 Urine Random Urine Streptococcus pneumoniae Antigen (M - Final PRESUMPTIVE NEGATIVE FOR STREPTOCOCCU... Complete Imaging Last Impressions Cholangiopancreatography MRI 01/11/17 0000 Signed Impressions: Service Date/Time: Wednesday, January 11, 2017 10:04 - CONCLUSION: 3 mm gallstone. Otherwise normal MRCP. There is no duct stone or ductal dilatation. No perceptible inflammatory changes. Geovanny Novak MD Chest X-Ray 01/10/17 0000 Signed Impressions: Service Date/Time: Tuesday, January 10, 2017 11:13 - CONCLUSION: Patchy bilateral lower lungs opacity. No significant interval change. Julio Schaefer MD Chest CT 01/06/17 0000 Signed Impressions: Service Date/Time: Saturday, January 07, 2017 00:47 - CONCLUSION: Bilateral lower lobe airspace disease left greater than right likely pneumonia. Vladimir Red MD Abdomen/Pelvis CT 01/05/17 0752 Signed Impressions: Service Date/Time: Thursday, January 05, 2017 08:09 - CONCLUSION: 1. Bibasilar atelectatic changes with no confluent infiltrate. 2. Isolated gallstone in the gallbladder lumen. 3. CT findings no prior mesh repair possibly for bilateral inguinal hernia or lower anterior abdominal wall hernia. 4. Mild prominence of the prostate Cristo Choudhury MD Thoracic Spine MRI 01/05/17 0000 Signed Impressions: Service Date/Time: Thursday, January 05, 2017 12:36 - CONCLUSION: 1. Tiny bilateral pleural effusions and bibasilar consolidations. 2. Central canal is patent. No vertebral compression deformities. Javed Hawkins Jr., MD Lumbar Spine MRI 01/05/17 0000 Signed Impressions: Service Date/Time: Thursday, January 05, 2017 12:36 - CONCLUSION: 1. No acute abnormality. Javed Hawkins Jr., MD Lumbar Puncture Fluoroscopy 01/05/17 0000 Signed Impressions: Service Date/Time: Thursday, January 05, 2017 09:31 - CONCLUSION: Uncomplicated fluoroscopically guided lumbar puncture with pressures as above. Cristo Choudhury MD Liver Ultrasound 01/05/17 0000 Signed Impressions: Service Date/Time: Thursday, January 05, 2017 13:55 - CONCLUSION: 1. Hepatosplenomegaly. 2. Heterogeneous echotexture of the liver but no focal mass seen. No significant biliary ductal dilation identified. 3. 3 mm cholesterol polyp adherent to the gallbladder wall. Mike Cary MD Head CT 01/05/17 0000 Signed Impressions: Service Date/Time: Thursday, January 05, 2017 08:12 - CONCLUSION: 1. 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 2. Nothing acute. Cristo Choudhury MD Cervical Spine MRI 01/05/17 0000 Signed Impressions: Service Date/Time: Thursday, January 05, 2017 12:36 - CONCLUSION: There is subtle enhancement interspinous ligaments between C2-C3, C3-C4, C4-C5. Controlled flexion extension films may be of benefit to exclude ligamentous instability. present as well. This can be seen with ligamentous injury. This would be very unusual place for infection. No other abnormalities appreciated. Tiago Cary MD FACR Physical Exam HEENT: Normocephalic; atraumatic; no jaundice. CHEST: CTA CARDIAC: RRR ABDOMEN: Soft, nondistended, nontender; no hepatosplenomegaly; bowel sounds are present in all four quadrants. EXTREMITIES: No clubbing, cyanosis, or edema. SKIN: Normal; no rash; no jaundice. [employer] LEAD: No focal deficits; alert and oriented times three. (Naila Reyna) Assessment and Plan Plan ASSESSMENT: - Elevated LFTs. CT Scan abdomen and pelvis with contrast (01/05/17)--> No definite acute abnoramlity is seen. Hernia mesh is seen at the lower anterior abdominal wall with some minimal surrounding induration which may represent postoperative change. A fluid collection is not seen. Suspected small calcified gallstone without distension of the gallabladder. Bibasilar areas of suspected atelectasis or consolidation. Liver US (01/05/17)-----> Hepatosplenomegaly. Heterogeneous echotexture of the liver but no focal mass seen. No significant biliary ductal dilation identified. 3 mm cholesterol polyp adherent to the gallbladder wall. MRCP (01/11/17)----> 3 mm gallstone, otherwise normal. There is no duct stone or ductal dilatation. No perceptible inflammatory changes. Elevated Sed rate, and CRP, Hepatitis panel negative, JOSE (-), AMA ( P), ASMA (-), EBV consistent with past infection, HIV (-), CMV (-), Iron saturation 16, Fe 464. Ceruloplasmin pending. Alpha 1 Antitrypsin. Patient denies previous hx of liver dz, denies heavy or daily alcohol intake. ? Passed gallstone. - Syncope/collapse/Malaise, gen. weakness. Neurology work up included LP, MRI c /t/l spine, ct a/p x 2. They were initially concerned about G. [place] due to recent influenza shot. No evidence for meningitis or GBS. 2D echo essential nml. no vegetation All blood cx and lumbar puncture no growth - Lower abd pain- patient has a history of laparoscopic bilateral inguinal hernia repair with mesh by Dr. Cueva about 1 year ago. He did well until 2 months ago when he was lifting a couch and felt a tear in the right groin. GS don't feel this is related to the surg. This pain has resolved. - Wt loss (25 ibs in the last 2 months) - Hx of [place]- last EGD 3 yrs ago, not on ppi at home - Family hx of colon cancer ( father and uncle had it in their 40's). last colonoscopy 3 yrs ago Plan: - WILLIAM - Monitor LFTs - Await Ceruloplasmin, alpha antitrypsin, ama - Monitor LFTs (trending down) - ID, GS, neurology on the case. - Supportive care - EGD/Colonoscopy as outpatient - LFTs trending down, ? passed stone - Further recommendations to follow based on results of above - Patient was seen and examined by Dr. Devi and myself and this note is written on his behalf. (Naila Reyna) Physician Comments Seen and examined with DAIANA, Lfts improving. Ramirez in progress. Feeling a lot better. (Van Devi MD) Naila Reyna Jan 12, 2017 14:16 Van Devi MD Jan 12, 2017 15:18
[2017-01-12] MEDS: PANTOPRAZOLE SODIUM 40 MG VIAL IV PUSH SCH (14:32)
--- NOTE | 2017-01-12 14:47 | HHI.IDPN ---
Subjective Subjective Remarks feels good no fever no pain WBC normal seen by GI Antibiotics Kiel Gonzales Lines PIV Past Medical History Hyperlipidemia Previous hernia repair one year ago. Carpal tunnel surgery. Multiple orthopedic surgeries. Allergies: Coded Allergies: No Known Allergies (Verified Allergy, Unknown, 01/05/17) Objective . Vital Signs Date Time Temp Pulse Resp B/P (MAP) Pulse Ox O2 Delivery O2 Flow Rate FiO2 01/12/17 08:41 95 Nasal Cannula 2.00 01/12/17 08:00 98.3 66 22 115/74 (88) 96 01/12/17 06:00 61 01/12/17 05:00 70 18 115/73 (87) 95 01/12/17 04:00 68 01/12/17 04:00 98.3 68 19 118/75 (89) 98 01/12/17 03:00 66 20 121/73 (89) 99 01/12/17 02:00 70 01/12/17 02:00 74 20 119/70 (86) 96 01/12/17 00:00 98.1 82 20 122/70 (87) 97 01/12/17 00:00 68 01/11/17 23:00 78 22 123/72 (89) 96 01/11/17 22:00 78 01/11/17 22:00 81 22 130/72 (91) 96 01/11/17 21:00 89 26 119/68 (85) 95 01/11/17 20:05 97 Nasal Cannula 2.00 01/11/17 20:00 84 01/11/17 20:00 98.2 83 20 131/79 (96) 93 01/11/17 19:00 72 21 133/75 (94) 99 01/11/17 18:00 76 01/11/17 16:00 98.3 80 26 114/73 (87) 93 01/11/17 16:00 80 . Laboratory Tests Test 01/12/17 04:34 White Blood Count 8.2 TH/MM3 Red Blood Count 4.16 MIL/MM3 Hemoglobin 12.4 GM/DL Hematocrit 35.8 % Mean Corpuscular Volume 86.0 FL Mean Corpuscular Hemoglobin 29.7 PG Mean Corpuscular Hemoglobin Concent 34.6 % Red Cell Distribution Width 13.1 % Platelet Count 407 TH/MM3 Mean Platelet Volume 7.3 FL Neutrophils (%) (Auto) 76.2 % Lymphocytes (%) (Auto) 12.1 % Monocytes (%) (Auto) 8.1 % Eosinophils (%) (Auto) 3.0 % Basophils (%) (Auto) 0.6 % Neutrophils # (Auto) 6.2 TH/MM3 Lymphocytes # (Auto) 1.0 TH/MM3 Monocytes # (Auto) 0.7 TH/MM3 Eosinophils # (Auto) 0.2 TH/MM3 Basophils # (Auto) 0.1 TH/MM3 CBC Comment DIFF FINAL Differential Comment Laboratory Tests Test 01/10/17 17:17 01/11/17 17:15 01/11/17 19:12 01/12/17 04:34 Lactic Acid Level 1.3 mmol/L Amylase Level 66 U/L Lipase 282 U/L Blood Urea Nitrogen 18 MG/DL Creatinine 0.88 MG/DL Random Glucose 104 MG/DL Total Protein 6.6 GM/DL Albumin 2.3 GM/DL Calcium Level 8.8 MG/DL Magnesium Level 2.1 MG/DL Alkaline Phosphatase 367 U/L Aspartate Amino Transf (AST/SGOT) 83 U/L Alanine Aminotransferase (ALT/SGPT) 184 U/L Total Bilirubin 0.4 MG/DL Direct Bilirubin 0.2 MG/DL Sodium Level 138 MEQ/L Potassium Level 4.2 MEQ/L Chloride Level 102 MEQ/L Carbon Dioxide Level 27.0 MEQ/L Anion Gap 9 MEQ/L Estimat Glomerular Filtration Rate 89 ML/MIN Indirect Bilirubin 0.2 MG/DL Microbiology Date/Time Source Procedure Growth Status 01/10/17 13:13 Blood Peripheral Aerobic Blood Culture - Preliminary NO GROWTH IN 2 DAYS Resulted 01/10/17 13:13 Blood Peripheral Anaerobic Blood Culture - Preliminary NO GROWTH IN 2 DAYS Resulted 01/10/17 13:06 Blood Peripheral Aerobic Blood Culture - Preliminary NO GROWTH IN 2 DAYS Resulted 01/10/17 13:06 Blood Peripheral Anaerobic Blood Culture - Preliminary NO GROWTH IN 2 DAYS Resulted Imaging Last Impressions Cholangiopancreatography MRI 01/11/17 0000 Signed Impressions: Service Date/Time: Wednesday, January 11, 2017 10:04 - CONCLUSION: 3 mm gallstone. Otherwise normal MRCP. There is no duct stone or ductal dilatation. No perceptible inflammatory changes. Geovanny Novak MD Chest X-Ray 01/10/17 0000 Signed Impressions: Service Date/Time: Tuesday, January 10, 2017 11:13 - CONCLUSION: Patchy bilateral lower lungs opacity. No significant interval change. Julio Schaefer MD Chest CT 01/06/17 0000 Signed Impressions: Service Date/Time: Saturday, January 07, 2017 00:47 - CONCLUSION: Bilateral lower lobe airspace disease left greater than right likely pneumonia. Vladimir Red MD Abdomen/Pelvis CT 01/05/17 0752 Signed Impressions: Service Date/Time: Thursday, January 05, 2017 08:09 - CONCLUSION: 1. Bibasilar atelectatic changes with no confluent infiltrate. 2. Isolated gallstone in the gallbladder lumen. 3. CT findings no prior mesh repair possibly for bilateral inguinal hernia or lower anterior abdominal wall hernia. 4. Mild prominence of the prostate Cristo Choudhury MD Thoracic Spine MRI 01/05/17 0000 Signed Impressions: Service Date/Time: Thursday, January 05, 2017 12:36 - CONCLUSION: 1. Tiny bilateral pleural effusions and bibasilar consolidations. 2. Central canal is patent. No vertebral compression deformities. Javed Hawkins Jr., MD Lumbar Spine MRI 01/05/17 0000 Signed Impressions: Service Date/Time: Thursday, January 05, 2017 12:36 - CONCLUSION: 1. No acute abnormality. Javed Hawkins Jr., MD Lumbar Puncture Fluoroscopy 01/05/17 0000 Signed Impressions: Service Date/Time: Thursday, January 05, 2017 09:31 - CONCLUSION: Uncomplicated fluoroscopically guided lumbar puncture with pressures as above. Cristo Choudhury MD Liver Ultrasound 01/05/17 0000 Signed Impressions: Service Date/Time: Thursday, January 05, 2017 13:55 - CONCLUSION: 1. Hepatosplenomegaly. 2. Heterogeneous echotexture of the liver but no focal mass seen. No significant biliary ductal dilation identified. 3. 3 mm cholesterol polyp adherent to the gallbladder wall. Mike Cary MD Head CT 01/05/17 0000 Signed Impressions: Service Date/Time: Thursday, January 05, 2017 08:12 - CONCLUSION: 1. 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 2. Nothing acute. Cristo Choudhury MD Cervical Spine MRI 01/05/17 0000 Signed Impressions: Service Date/Time: Thursday, January 05, 2017 12:36 - CONCLUSION: There is subtle enhancement interspinous ligaments between C2-C3, C3-C4, C4-C5. Controlled flexion extension films may be of benefit to exclude ligamentous instability. present as well. This can be seen with ligamentous injury. This would be very unusual place for infection. No other abnormalities appreciated. Tiago Cary MD FACR Physical Exam GENERAL: Awake and alert, not indistress SKIN: No jaundice, rashes, or lesions. Skin temperature appropriate. Not diaphoretic. EYES: Pupils equal and round and reactive. Extraocular motions intact. No scleral icterus. No injection or drainage. Fundi not examined. ENT: Oral mucosae without visible erythema, exudates, masses, or lesions. CARDIOVASCULAR: Regular rate and rhythm without murmurs, gallops, or rubs. No JVD. Peripheral pulses symmetric. RESPIRATORY/CHEST: Symmetric, unlabored respirations. Clear to auscultation. Breath sounds equal bilaterally. No wheezes, rales, or rhonchi. GASTROINTESTINAL: Abdomen soft, not tender , nondistended. [place] negative No hepato-splenomegaly, or palpable masses. No guarding. Bowel sounds present. GENITOURINARY: Without palpable bladder distension. MUSCULOSKELETAL: Extremities without clubbing, cyanosis, or edema. No joint tenderness or effusion noted. No calf tenderness. No mottling or clubbing. NEUROLOGICAL: Awake and alert. Motor and sensory grossly within normal limits. Follows commands. Clear speech . Moves all extremities. PSYCHIATRIC: No obvious anxiety/depression. no apparent hallucinations or other psychotic thought process. LINE: No evidence of infection Assessment & Plan Remarks FUO - fever resolved Bl clx negative CMV/HIV neg EBV cw past infx Abnormal LFTs MRCP w/o acute fingins, but confirmed gallbladder stopnes - resolving bilirubinemia ? passed stone hepatitis profile negative ? passed a stone normal lipase/amylase Hx hernia repair with mesh - no e/o mesh infx on imaging studies Bibasilar infiltrates but clinically no PNA complaints Weight loss Persistent abdominal pain w/o findings on imaging studies - resolved PLAN: Continue Zosyn x 7 days Continue Zithromax x 5 days Dulce Nava MD Jan 12, 2017 14:47
[2017-01-12 15:51] LABS: MYELOPEROXIDASE LESS THAN 1.0 AI (<1.0); PROTEINASE-3 LESS THAN 1.0 AI (<1.0)
--- NOTE | 2017-01-12 17:03 | HHI.PR ---
Subjective Remarks No new complaints. Pt is tolerating diet. +BM Objective Vitals Vital Signs Date Time Temp Pulse Resp B/P (MAP) Pulse Ox O2 Delivery O2 Flow Rate FiO2 01/12/17 08:41 95 Nasal Cannula 2.00 01/12/17 08:00 98.3 66 22 115/74 (88) 96 01/12/17 06:00 61 01/12/17 05:00 70 18 115/73 (87) 95 01/12/17 04:00 68 01/12/17 04:00 98.3 68 19 118/75 (89) 98 01/12/17 03:00 66 20 121/73 (89) 99 01/12/17 02:00 70 01/12/17 02:00 74 20 119/70 (86) 96 01/12/17 00:00 98.1 82 20 122/70 (87) 97 01/12/17 00:00 68 01/11/17 23:00 78 22 123/72 (89) 96 01/11/17 22:00 78 01/11/17 22:00 81 22 130/72 (91) 96 01/11/17 21:00 89 26 119/68 (85) 95 01/11/17 20:05 97 Nasal Cannula 2.00 01/11/17 20:00 84 01/11/17 20:00 98.2 83 20 131/79 (96) 93 01/11/17 19:00 72 21 133/75 (94) 99 01/11/17 18:00 76 Result Diagram: 01/12/17 0434 01/12/17 0434 Imaging Last Impressions Cholangiopancreatography MRI 01/11/17 0000 Signed Impressions: Service Date/Time: Wednesday, January 11, 2017 10:04 - CONCLUSION: 3 mm gallstone. Otherwise normal MRCP. There is no duct stone or ductal dilatation. No perceptible inflammatory changes. Geovanny Novak MD Chest X-Ray 01/10/17 0000 Signed Impressions: Service Date/Time: Tuesday, January 10, 2017 11:13 - CONCLUSION: Patchy bilateral lower lungs opacity. No significant interval change. Julio Schaefer MD Chest CT 01/06/17 0000 Signed Impressions: Service Date/Time: Saturday, January 07, 2017 00:47 - CONCLUSION: Bilateral lower lobe airspace disease left greater than right likely pneumonia. Vladimir Red MD Abdomen/Pelvis CT 01/05/17 0752 Signed Impressions: Service Date/Time: Thursday, January 05, 2017 08:09 - CONCLUSION: 1. Bibasilar atelectatic changes with no confluent infiltrate. 2. Isolated gallstone in the gallbladder lumen. 3. CT findings no prior mesh repair possibly for bilateral inguinal hernia or lower anterior abdominal wall hernia. 4. Mild prominence of the prostate Cristo Choudhury MD Thoracic Spine MRI 01/05/17 0000 Signed Impressions: Service Date/Time: Thursday, January 05, 2017 12:36 - CONCLUSION: 1. Tiny bilateral pleural effusions and bibasilar consolidations. 2. Central canal is patent. No vertebral compression deformities. Javed Hawkins Jr., MD Lumbar Spine MRI 01/05/17 0000 Signed Impressions: Service Date/Time: Thursday, January 05, 2017 12:36 - CONCLUSION: 1. No acute abnormality. Javed Hawkins Jr., MD Lumbar Puncture Fluoroscopy 01/05/17 Signed Impressions: Service Date/Time: Thursday, January 05, 2017 09:31 - CONCLUSION: Uncomplicated fluoroscopically guided lumbar puncture with pressures as above. Cristo Choudhury MD Liver Ultrasound 01/05/17 Signed Impressions: Service Date/Time: Thursday, January 05, 2017 13:55 - CONCLUSION: 1. Hepatosplenomegaly. 2. Heterogeneous echotexture of the liver but no focal mass seen. No significant biliary ductal dilation identified. 3. 3 mm cholesterol polyp adherent to the gallbladder wall. Mike Cary MD Head CT 01/05/17 Signed Impressions: Service Date/Time: Thursday, January 05, 2017 08:12 - CONCLUSION: 1. 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 2. Nothing acute. Cristo Choudhury MD Cervical Spine MRI 01/05/17 0000 Signed Impressions: Service Date/Time: Thursday, January 05, 2017 12:36 - CONCLUSION: There is subtle enhancement interspinous ligaments between C2-C3, C3-C4, C4-C5. Controlled flexion extension films may be of benefit to exclude ligamentous instability. present as well. This can be seen with ligamentous injury. This would be very unusual place for infection. No other abnormalities appreciated. Tiago Cary MD FACR Objective Remarks GENERAL: This is a well-nourished, well-developed patient, in no apparent distress. CARDIOVASCULAR: Regular rate and rhythm without murmurs, gallops, or rubs. RESPIRATORY: Clear to auscultation. Breath sounds equal bilaterally. No wheezes , rales, or rhonchi. GASTROINTESTINAL: Abdomen soft, non-tender, nondistended. Normal active bowel sounds MUSCULOSKELETAL: Extremities without clubbing, cyanosis, or edema. NEURO: Alert & Oriented x4 to person, place, time, situation. Moves all ext x4 A/P Problem List: (1) Fever ICD Codes: R50.9 - Fever, unspecified Status: Acute Plan: Syncope/Collapse Persistent Fever Abdomen pain Elevation LFT Elevated esr Weight loss - Pt presented after an episode of syncope/collapse. Pt also reported a 2 week hx of progressive abdomen pains, general weakness, fatigue, subjective fever/chills, night sweats and a recent 25pound weight loss (unintentional). - Pt was noted to have fevers/chills/rigors during admission. - Pt was admitted to ICU from the ED - initial workup by ED/ICU/Neuro included LP,MRI c/t/l spine, ct a/p x 2, liver u/s. They were initially concerned about G. [place] due to recent influenza shot. No evidence for meningitis or GBS. - General surg eval of abdomen and they do not feel that the mesh is a likely cause for the pain/fevers/weight loss etc. - 2D echo essential nml. no vegetation - Liver US --> Hepatosplenomegaly. Heterogeneous echotexture of the liver but no focal mass seen. No significant biliary ductal dilation identified. 3 mm cholesterol polyp adherent to the gallbladder wall. - CT Abd/.pelvis (01/05) --> Bibasilar atelectatic changes with no confluent infiltrate. Isolated gallstone in the gallbladder lumen. CT findings no prior mesh repair possibly for bilateral inguinal hernia or lower anterior abdominal wall hernia. Mild prominence of the prostate - Continue w/up and monitoring inpatient as the diagnosis is not clear at this point. Infectious/malignant/autoimmune processes are all in the differential. - Cont abx for an apparent pneumonia on CT and by exam. mostly left lung. Cont zosyn, Azithromycin added on 01/09 - At 11:30AM on 01/10 pt started having rigors and chills. [facility] was called as there was concern about possible seizure activity and his respirations increased to 29 breaths/min. Pts temp was 95 and BP was elevated with systolic BP 170. When we arrived to the room, pt was able to speak clearly and remembered all that has been happening. He states that he had sudden onset of shaking and chills which is uncontrolled. This seems to come in waves and lasts about 30 secs to a minute. 01/12/17 - MRCP (01/12) --> 3mm stone in GB, no ductal dilation - possible passed biliary stone - continue current treatment plan - will discuss further with GI/ID - Kiel (2) Abdominal pain ICD Codes: R10.9 - Unspecified abdominal pain Status: Acute (3) Syncope and collapse ICD Codes: R55 - Syncope and collapse Status: Acute (4) Weight loss, unintentional ICD Codes: R63.4 - Abnormal weight loss Status: Acute (5) Generalized weakness ICD Codes: R53.1 - Weakness Status: Acute Robert Hilton DO Jan 12, 2017 17:03
[2017-01-12] MEDS ORDERED: SKIN TEST RESULT SCH (18:30)
[2017-01-13] VITALS (14 sets, daily range): BP systolic 103–129; BP diastolic 59–77; PULSE 58–93; RESP 14–24; TEMP 98–98.6; O2SAT 91–95
[2017-01-13] MEDS: traMADol HCL 50 MG TAB PO PRN ×2 (03:40→08:33)
[2017-01-13] MEDS: CHLORHEXIDINE GLUCONATE 2 % 1 PACK (2 CLOTHS) TOP SCH (04:00)
[2017-01-13 06:14] LABS: AUTOMATED NEUTROPHIL # 7.2 TH/MM3 (1.8-7.7); BASOPHIL % 0.4 % (0.0-2.0); EOSINOPHIL # 0.2 TH/MM3 (0-0.4); EOSINOPHIL % 2.8 % (0.0-4.0); HEMO FLAGS DIFF FINAL; LYMPH % 9.6 % (9.0-44.0); LYMPHOCYTE # 0.9 TH/MM3 (1.0-4.8); MEAN CELL VOLUME 86.9 FL (80.0-100.0); MEAN CORPUSCULAR HEMOGLOBIN 29.2 PG (27.0-34.0); MEAN CORPUSCULAR HGB CONC 33.6 % (32.0-36.0); MONO % 7.1 % (0.0-8.0); NEUT % 80.1 % (16.0-70.0); PLATELET COUNT 447 TH/MM3 (150-450); RED BLOOD COUNT 4.37 MIL/MM3 (4.50-5.90); RED CELL DISTRIBUTION WIDTH 13.1 % (11.6-17.2)
[2017-01-13 06:47] LABS: BICARBONATE 27.9 MEQ/L (21.0-32.0); MAGNESIUM 2.3 MG/DL (1.5-2.5); POTASSIUM 4.4 MEQ/L (3.5-5.1)
[2017-01-13 06:51] LABS: INDIRECT BILIRUBIN 0.2 MG/DL (0.0-0.8); TOTAL BILIRUBIN ADULT 0.4 MG/DL (0.2-1.0)
[2017-01-13] MEDS ORDERED: AZITHROMYCIN 250 MG TAB PO ONE (09:00)
--- NOTE | 2017-01-13 09:11 | RADRPT ---
EXAM DATE/TIME: 01/13/2017 08:43 [facility] COMPARISON: CHEST SINGLE AP, January 10, 2017, 11:13. INDICATIONS : Shortness of breath; Hypoxia. MEDICAL HISTORY : Gastroesophageal reflux disease. Hernia SURGICAL HISTORY : Hernia repair. ENCOUNTER: Subsequent ACUITY: 1 week PAIN SCORE: 0/10 LOCATION: Bilateral chest FINDINGS: The cardiac silhouette is enlarged in transverse diameter. The aortic knob is prominent with tortuosi ty of the descending thoracic aorta. There is subsegmental atelectasis in the left base. The right juni ng is free of acute parenchymal opacity. CONCLUSION: 1. Subsegmental atelectasis left base. The findings are similar to the prior exam. Skyler Ramírez MD on January 13, 2017 at 9:09 Board Certified Radiologist. This report was verified electronically.
[2017-01-13] MEDS: ENOXAPARIN SODIUM 40 MG/0.4 ML SYRINGE SQ SCH (11:00)
[2017-01-13] MEDS: PANTOPRAZOLE SODIUM 40 MG VIAL IV PUSH SCH (14:39)
[2017-01-13] MEDS ORDERED: TRAM50 PO (15:37)
--- NOTE | 2017-01-13 15:37 | HHI.GIFU ---
Subjective Remarks Resting in bed. Denies any abdominal pain, nausea, vomiting. Tolerating diet. (Naila Reyna) Objective Vitals I&O Vital Signs Date Time Temp Pulse Resp B/P (MAP) Pulse Ox O2 Delivery O2 Flow Rate FiO2 01/13/17 12:00 69 01/13/17 12:00 98.0 69 18 108/67 (81) 91 01/13/17 11:00 93 01/13/17 10:00 74 01/13/17 09:00 81 01/13/17 08:00 98.6 61 18 103/59 (74) 95 01/13/17 08:00 61 01/13/17 07:00 58 01/13/17 06:00 58 01/13/17 04:00 71 01/13/17 04:00 98.1 68 14 121/74 (90) 95 01/13/17 02:00 67 01/13/17 00:00 69 01/13/17 00:00 98.0 68 19 113/68 (83) 94 01/12/17 22:00 81 01/12/17 20:42 98 Nasal Cannula 1.00 01/12/17 20:00 86 01/12/17 20:00 98.2 86 16 126/67 (86) 95 01/12/17 18:00 79 01/12/17 16:00 98.2 75 22 118/71 (87) 97 01/12/17 16:00 76 I/O 01/12/17 01/12/17 01/12/17 01/13/17 01/13/17 01/13/17 06:59 14:59 22:59 06:59 14:59 22:59 Intake Total 1110 ml 50 ml 710 ml Output Total 1400 ml 2300 ml Balance -290 ml 50 ml -1590 ml Intake Oral 1060 ml 710 ml IV Total 50 ml 50 ml Output Urine Total 1400 ml 2300 ml # Bowel Movements 0 0 Laboratory Laboratory Tests Test 01/13/17 05:12 White Blood Count 9.0 Red Blood Count 4.37 Hemoglobin 12.8 Hematocrit 38.0 Mean Corpuscular Volume 86.9 Mean Corpuscular Hemoglobin 29.2 Mean Corpuscular Hemoglobin Concent 33.6 Red Cell Distribution Width 13.1 Platelet Count 447 Mean Platelet Volume 7.2 Neutrophils (%) (Auto) 80.1 Lymphocytes (%) (Auto) 9.6 Monocytes (%) (Auto) 7.1 Eosinophils (%) (Auto) 2.8 Basophils (%) (Auto) 0.4 Neutrophils # (Auto) 7.2 Lymphocytes # (Auto) 0.9 Monocytes # (Auto) 0.6 Eosinophils # (Auto) 0.2 Basophils # (Auto) 0.0 CBC Comment DIFF FINAL Differential Comment Blood Urea Nitrogen 20 Creatinine 0.82 Random Glucose 105 Total Protein 7.3 Albumin 2.4 Calcium Level 9.2 Magnesium Level 2.3 Alkaline Phosphatase 361 Aspartate Amino Transf (AST/SGOT) 61 Alanine Aminotransferase (ALT/SGPT) 164 Total Bilirubin 0.4 Direct Bilirubin 0.2 Sodium Level 135 Potassium Level 4.4 Chloride Level 100 Carbon Dioxide Level 27.9 Anion Gap 7 Estimat Glomerular Filtration Rate 96 Indirect Bilirubin 0.2 Date/Time Source Procedure Growth Status 01/10/17 13:13 Blood Peripheral Aerobic Blood Culture - Preliminary NO GROWTH IN 3 DAYS Resulted 01/10/17 13:13 Blood Peripheral Anaerobic Blood Culture - Preliminary NO GROWTH IN 3 DAYS Resulted 01/05/17 10:04 Cerebral Spinal Fluid Lumbar Puncture Gram Stain - Final Complete 01/05/17 10:04 Cerebral Spinal Fluid Lumbar Puncture CSF Culture - Final NO GROWTH IN 72 HOURS Complete 01/08/17 12:58 Urine Random Urine Legionella Antigen - Final PRESUMPTIVE NEGATIVE FOR LEGIONELLA P... Complete 01/08/17 12:58 Urine Random Urine Streptococcus pneumoniae Antigen (M - Final PRESUMPTIVE NEGATIVE FOR STREPTOCOCCU... Complete Imaging Last Impressions Chest X-Ray 01/13/17 0800 Signed Impressions: Service Date/Time: Friday, January 13, 2017 08:43 - CONCLUSION: 1. Subsegmental atelectasis left base. The findings are similar to the prior exam. Skyler Ramírez MD Cholangiopancreatography MRI 01/11/17 0000 Signed Impressions: Service Date/Time: Wednesday, January 11, 2017 10:04 - CONCLUSION: 3 mm gallstone. Otherwise normal MRCP. There is no duct stone or ductal dilatation. No perceptible inflammatory changes. Geovanny Novak MD Chest CT 01/06/17 0000 Signed Impressions: Service Date/Time: Saturday, January 07, 2017 00:47 - CONCLUSION: Bilateral lower lobe airspace disease left greater than right likely pneumonia. Vladimir Red MD Abdomen/Pelvis CT 01/05/17 0752 Signed Impressions: Service Date/Time: Thursday, January 05, 2017 08:09 - CONCLUSION: 1. Bibasilar atelectatic changes with no confluent infiltrate. 2. Isolated gallstone in the gallbladder lumen. 3. CT findings no prior mesh repair possibly for bilateral inguinal hernia or lower anterior abdominal wall hernia. 4. Mild prominence of the prostate Cristo Choudhury MD Thoracic Spine MRI 01/05/17 Signed Impressions: Service Date/Time: Thursday, January 05, 2017 12:36 - CONCLUSION: 1. Tiny bilateral pleural effusions and bibasilar consolidations. 2. Central canal is patent. No vertebral compression deformities. Javed Hawkins Jr., MD Lumbar Spine MRI 01/05/17 Signed Impressions: Service Date/Time: Thursday, January 05, 2017 12:36 - CONCLUSION: 1. No acute abnormality. Javed Hawkins Jr., MD Lumbar Puncture Fluoroscopy 01/05/17 Signed Impressions: Service Date/Time: Thursday, January 05, 2017 09:31 - CONCLUSION: Uncomplicated fluoroscopically guided lumbar puncture with pressures as above. Cristo Choudhury MD Liver Ultrasound 01/05/17 Signed Impressions: Service Date/Time: Thursday, January 05, 2017 13:55 - CONCLUSION: 1. Hepatosplenomegaly. 2. Heterogeneous echotexture of the liver but no focal mass seen. No significant biliary ductal dilation identified. 3. 3 mm cholesterol polyp adherent to the gallbladder wall. Mike Cary MD Head CT 01/05/17 Signed Impressions: Service Date/Time: Thursday, January 05, 2017 08:12 - CONCLUSION: 1. 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 2. Nothing acute. Cristo Choudhury MD Cervical Spine MRI 01/05/17 Signed Impressions: Service Date/Time: Thursday, January 05, 2017 12:36 - CONCLUSION: There is subtle enhancement interspinous ligaments between C2-C3, C3-C4, C4-C5. Controlled flexion extension films may be of benefit to exclude ligamentous instability. present as well. This can be seen with ligamentous injury. This would be very unusual place for infection. No other abnormalities appreciated. Tiago Cary MD FACR Physical Exam HEENT: Normocephalic; atraumatic; no jaundice. CHEST: CTA CARDIAC: RRR ABDOMEN: Soft, nondistended, nontender; no hepatosplenomegaly; bowel sounds are present in all four quadrants. EXTREMITIES: No clubbing, cyanosis, or edema. SKIN: Normal; no rash; no jaundice. GRAPE CRUSHER: No focal deficits; alert and oriented times three. (Naila Reyna [facility]) Assessment and Plan Plan ASSESSMENT: - Elevated LFTs. CT Scan abdomen and pelvis with contrast (01/05/17)--> No definite acute abnoramlity is seen. Hernia mesh is seen at the lower anterior abdominal wall with some minimal surrounding induration which may represent postoperative change. A fluid collection is not seen. Suspected small calcified gallstone without distension of the gallabladder. Bibasilar areas of suspected atelectasis or consolidation. Liver US (01/05/17)-----> Hepatosplenomegaly. Heterogeneous echotexture of the liver but no focal mass seen. No significant biliary ductal dilation identified. 3 mm cholesterol polyp adherent to the gallbladder wall. MRCP (01/11/17)----> 3 mm gallstone, otherwise normal. There is no duct stone or ductal dilatation. No perceptible inflammatory changes. Elevated Sed rate, and CRP, Hepatitis panel negative, JOSE (-), AMA ( P), ASMA (-), EBV consistent with past infection, HIV (-), CMV (-), Iron saturation 16, Fe 464. Ceruloplasmin pending. Alpha 1 Antitrypsin. Patient denies previous hx of liver dz, denies heavy or daily alcohol intake. LFTs continue to improve. Suspect passed gallstone. - Syncope/collapse/Malaise, gen. weakness. Neurology work up included LP, MRI c /t/l spine, ct a/p x 2. They were initially concerned about G. [place] due to recent influenza shot. No evidence for meningitis or GBS. 2D echo essential nml. no vegetation All blood cx and lumbar puncture no growth - Lower abd pain- patient has a history of laparoscopic bilateral inguinal hernia repair with mesh by Dr. Cueva about 1 year ago. He did well until 2 months ago when he was lifting a couch and felt a tear in the right groin. GS don't feel this is related to the surg. This pain has resolved. - Wt loss (25 ibs in the last 2 months) - Hx of [place]- last EGD 3 yrs ago, not on ppi at home - Family hx of colon cancer ( father and uncle had it in their 40's). last colonoscopy 3 yrs ago Plan: - WILLIAM - Monitor LFTs - Await Ceruloplasmin, alpha antitrypsin, ama - Monitor LFTs (trending down) - ID, GS, neurology on the case. - EGD/Colonoscopy as outpatient - LFTs trending down, Suspect passed stone - Further recommendations to follow based on results of above - Patient was seen and examined by Dr. Devi and myself and this note is written on his behalf. (Naila Reyna) Physician Comments Seen and examined with DAIANA, doing better. LFTs improving, no bleeding. LIver cotter in progress. Will sign off, please fu in gi clinic in 02 weeks after dc. Thankyou (Van Devi MD) Naila Reyna Jan 13, 2017 15:37 Van Devi MD Jan 13, 2017 16:24
--- NOTE | 2017-01-13 15:45 | HHI.PR ---
Subjective Remarks No new complaints. Pt is tolerating PO intake. NO n/v/d. Pt denies abdominal pain. Pt denies fever. Objective Vitals Vital Signs Date Time Temp Pulse Resp B/P (MAP) Pulse Ox O2 Delivery O2 Flow Rate FiO2 01/13/17 15:00 72 01/13/17 14:00 70 01/13/17 13:00 69 01/13/17 12:00 69 01/13/17 12:00 98.0 69 18 108/67 (81) 91 01/13/17 11:00 93 01/13/17 10:00 74 01/13/17 09:00 81 01/13/17 08:00 98.6 61 18 103/59 (74) 95 01/13/17 08:00 61 01/13/17 07:00 58 01/13/17 06:00 58 01/13/17 04:00 71 01/13/17 04:00 98.1 68 14 121/74 (90) 95 01/13/17 02:00 67 01/13/17 00:00 69 01/13/17 00:00 98.0 68 19 113/68 (83) 94 01/12/17 22:00 81 01/12/17 20:42 98 Nasal Cannula 1.00 01/12/17 20:00 86 01/12/17 20:00 98.2 86 16 126/67 (86) 95 01/12/17 18:00 79 01/12/17 16:00 98.2 75 22 118/71 (87) 97 01/12/17 16:00 76 Result Diagram: 01/13/1751101/13/17 0512 Imaging Last Impressions Cholangiopancreatography MRI 01/11/17 0000 Signed Impressions: Service Date/Time: Wednesday, January 11, 2017 10:04 - CONCLUSION: 3 mm gallstone. Otherwise normal MRCP. There is no duct stone or ductal dilatation. No perceptible inflammatory changes. Geovanyn Novak MD Chest X-Ray 01/10/17 0000 Signed Impressions: Service Date/Time: Tuesday, January 10, 2017 11:13 - CONCLUSION: Patchy bilateral lower lungs opacity. No significant interval change. Julio Schaefer MD Chest CT 01/06/17 0000 Signed Impressions: Service Date/Time: Saturday, January 07, 2017 00:47 - CONCLUSION: Bilateral lower lobe airspace disease left greater than right likely pneumonia. Vladimir Red MD Abdomen/Pelvis CT 01/05/17 0752 Signed Impressions: Service Date/Time: Thursday, January 05, 2017 08:09 - CONCLUSION: 1. Bibasilar atelectatic changes with no confluent infiltrate. 2. Isolated gallstone in the gallbladder lumen. 3. CT findings no prior mesh repair possibly for bilateral inguinal hernia or lower anterior abdominal wall hernia. 4. Mild prominence of the prostate Cristo Choudhury MD Thoracic Spine MRI 01/05/17 0000 Signed Impressions: Service Date/Time: Thursday, January 05, 2017 12:36 - CONCLUSION: 1. Tiny bilateral pleural effusions and bibasilar consolidations. 2. Central canal is patent. No vertebral compression deformities. Javed Hawkins Jr., MD Lumbar Spine MRI 01/05/17 0000 Signed Impressions: Service Date/Time: Thursday, January 05, 2017 12:36 - CONCLUSION: 1. No acute abnormality. Javed Hawkins Jr., MD Lumbar Puncture Fluoroscopy 01/05/17 0000 Signed Impressions: Service Date/Time: Thursday, January 05, 2017 09:31 - CONCLUSION: Uncomplicated fluoroscopically guided lumbar puncture with pressures as above. Cristo Choudhury MD Liver Ultrasound 01/05/17 0000 Signed Impressions: Service Date/Time: Thursday, January 05, 2017 13:55 - CONCLUSION: 1. Hepatosplenomegaly. 2. Heterogeneous echotexture of the liver but no focal mass seen. No significant biliary ductal dilation identified. 3. 3 mm cholesterol polyp adherent to the gallbladder wall. Mike Cary MD Head CT 01/05/17 0000 Signed Impressions: Service Date/Time: Thursday, January 05, 2017 08:12 - CONCLUSION: 1. 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 2. Nothing acute. Cristo Choudhury MD Cervical Spine MRI 01/05/17 0000 Signed Impressions: Service Date/Time: Thursday, January 05, 2017 12:36 - CONCLUSION: There is subtle enhancement interspinous ligaments between C2-C3, C3-C4, C4-C5. Controlled flexion extension films may be of benefit to exclude ligamentous instability. present as well. This can be seen with ligamentous injury. This would be very unusual place for infection. No other abnormalities appreciated. Tiago Cary MD FACR Objective Remarks GENERAL: This is a well-nourished, well-developed patient, in no apparent distress. CARDIOVASCULAR: Regular rate and rhythm without murmurs, gallops, or rubs. RESPIRATORY: Clear to auscultation. Breath sounds equal bilaterally. No wheezes , rales, or rhonchi. GASTROINTESTINAL: Abdomen soft, non-tender, nondistended. Normal active bowel sounds MUSCULOSKELETAL: Extremities without clubbing, cyanosis, or edema. NEURO: Alert & Oriented x4 to person, place, time, situation. Moves all ext x4 A/P Problem List: (1) Fever ICD Codes: R50.9 - Fever, unspecified Status: Acute Plan: Syncope/Collapse Persistent Fever Abdomen pain Elevation LFT Elevated esr Weight loss - Pt presented after an episode of syncope/collapse. Pt also reported a 2 week hx of progressive abdomen pains, general weakness, fatigue, subjective fever/chills, night sweats and a recent 25pound weight loss (unintentional). - Pt was noted to have fevers/chills/rigors during admission. - Pt was admitted to ICU from the ED - initial workup by ED/ICU/Neuro included LP,MRI c/t/l spine, ct a/p x 2, liver u/s. They were initially concerned about G. [place] due to recent influenza shot. No evidence for meningitis or GBS. - General surg eval of abdomen and they do not feel that the mesh is a likely cause for the pain/fevers/weight loss etc. - 2D echo essential nml. no vegetation - Liver US --> Hepatosplenomegaly. Heterogeneous echotexture of the liver but no focal mass seen. No significant biliary ductal dilation identified. 3 mm cholesterol polyp adherent to the gallbladder wall. - CT Abd/.pelvis (01/05) --> Bibasilar atelectatic changes with no confluent infiltrate. Isolated gallstone in the gallbladder lumen. CT findings no prior mesh repair possibly for bilateral inguinal hernia or lower anterior abdominal wall hernia. Mild prominence of the prostate - Continue w/up and monitoring inpatient as the diagnosis is not clear at this point. Infectious/malignant/autoimmune processes are all in the differential. - Cont abx for an apparent pneumonia on CT and by exam. mostly left lung. Cont zosyn, Azithromycin added on 01/09 - At 11:30AM on 01/10 pt started having rigors and chills. ISABEL was called as there was concern about possible seizure activity and his respirations increased to 29 breaths/min. Pts temp was 95 and BP was elevated with systolic BP 170. When we arrived to the room, pt was able to speak clearly and remembered all that has been happening. He states that he had sudden onset of shaking and chills which is uncontrolled. This seems to come in waves and lasts about 30 secs to a minute. 01/13/17 - MRCP (01/12) --> 3mm stone in GB, no ductal dilation - possible passed biliary stone - Pt afebrile off antibiotics - NO clinical symptoms - Case d/w ID, Dr. Brush (01/13). She agrees with discharge. - Discharge to home this evening - stop LFTs for now - repeat LFTs outpt 01/19/17 - f/u with PCP, Dr. 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 - Pt instructed NO strenuous activity until reevaluated by PCP in 1 week. - I examined site of PPD placement. There was NO induration. (2) Abdominal pain ICD Codes: R10.9 - Unspecified abdominal pain Status: Acute (3) Syncope and collapse ICD Codes: R55 - Syncope and collapse Status: Acute (4) Weight loss, unintentional ICD Codes: R63.4 - Abnormal weight loss Status: Acute (5) Generalized weakness ICD Codes: R53.1 - Weakness Status: Acute Problem Qualifiers (1) Fever: Qualified Codes: R50.9 - Fever, unspecified (2) Abdominal pain: Qualified Codes: R10.9 - Unspecified abdominal pain Robert Hilton DO Jan 13, 2017 15:45
[2017-01-14 03:49] LABS: MITOCHONDRIAL ABS LESS THAN 20.0 U (<=20.0)
== END 2017-01-13 16:52 | disposition home or self-care (01) | DRG 947 ==
LOC: NEPE 07:38 → NEDA 11:38 → HIMN 14:40 → N06A 01-06 22:55 → HIMN 01-10 12:18
PROVIDERS: ADMIT Internal Medicine; ATTEND Internal Medicine
PROC: 009U3ZX Drainage of Spinal Canal, Percutaneous Approach, Diagnostic (ICD-10-PCS; principal; 2017-01-05)
DX: R53.1 Weakness (principal); J18.9 Pneumonia, unspecified organism; R16.2 Hepatomegaly with splenomegaly, not elsewhere classified; R50.9 Fever, unspecified; R55 Syncope and collapse; E78.5 Hyperlipidemia, unspecified; R10.13 Epigastric pain; R63.4 Abnormal weight loss; G89.29 Other chronic pain; R10.33 Periumbilical pain; R10.30 Lower abdominal pain, unspecified; M54.5 Low back pain; R79.82 Elevated C-reactive protein (CRP); R94.5 Abnormal results of liver function studies; K80.20 Calculus of gallbladder without cholecystitis without obstruction; R53.81 Other malaise; M62.838 Other muscle spasm; R61 Generalized hyperhidrosis
CPT/HCPCS: 62270; 70450; 71010; 71250; 72156; 72157; 72158; 74176; 74177; 74181; 76377; 76705; 76937; 77003; 80048; 80053; 80074; 80076; 81001; 82103; 82150; 82390; 82550; 82728; 82945; 82948; 83520; 83540; 83550; 83605; 83690; 83735; 84157; 84443; 84484; 85025; 85610; 85652; 85730; 86021; 86038; 86140; 86235; 86255; 86430; 86664; 86665; 86703; 87040; 87070; 87205; 87449; 87497; 87641; 89051; 93005; 93306; 94150; 94640; 94664; 96361; 96374; 96375; A9579; C9113; J0131; J0456; J1650; J2060; J2270; J2405; J2543; J2930; J7030; J7050; Q9963; Q9967

== ENCOUNTER 2017-03-09 08:43 | Day surgery (SDC) | payer OTHER ==
[2017-03-09] VITALS (9 sets, daily range): BP systolic 120–184; BP diastolic 77–112; PULSE 63–141; RESP 18–24; TEMP 98.1–98.5; O2SAT 93–97
[~2017-03-09] VITALS: Ht 182.9 cm; Wt 91.8 kg
[~2017-03-09 08:43] MED LIST changes: +ASPI81TA23 PO; -SIMV5TAB32 PO; +TRAM50 PO
[2017-03-09] MEDS ORDERED: DIAZ5 PO (09:17)
[2017-03-09] MEDS ORDERED: PRED10 PO (09:17)
[2017-03-09] MEDS ORDERED: SODIUM CHLOR 0.9% 1000 ML IV SCH (09:45)
[2017-03-09] MEDS ORDERED: SODIUM CHLORIDE 2 ML FLUSH PRN IV FLUSH (09:45)
[2017-03-09] MEDS ORDERED: LIDOCAINE HCL 1% 20 ML VIAL ONE (10:56)
[2017-03-09] MEDS ORDERED: LORazepam 2 MG/ML VIAL ONE (11:29)
--- NOTE | 2017-03-09 11:50 | PD.RAD ---
Post CT Procedure Prog Note Pre Procedure Diagnosis: (1) Elevated transaminase level Post Procedure Diagnosis: (1) Elevated transaminase level Procedure Date: Mar 09, 2017 Supervising Radiologist: Geovanny Rutledge Estimated blood loss: minimal. Anesthesia: Conscious Sedation Plan of Activity Patient to Unit: ROPU Patient Condition: Good See PACS Report for procedural detail/treatment Biopsy Imaging Guidance: CT Side: Right Biopsy Procedure: Liver Site: random liver biopsy Specimen: Core Biopsy Additional Detail: 2 18G cores obtained. Plan to ROPU then discharge in 4 hours. Geovanny Rutledge MD Mar 09, 2017 11:50
[2017-03-09] MEDS ORDERED: PILL SPLITTER OTHER PRN (12:00)
[2017-03-09] MEDS ORDERED: HYDROmorphone HCL 2 MG TAB PO PRN (12:00)
--- NOTE | 2017-03-09 12:33 | RADRPT ---
EXAM DATE/TIME: 03/09/2017 11:32 [place] COMPARISON: MRCP W/O CONTRAST, January 11, 2017, 10:04. INDICATIONS : Elevated liver function tests. BIOPSY SITE: liver MEDICATION(S): 1.) 2 lorazepam (Ativan) IV 2.) 100 fentanyl (Sublimaze) IV DEVICE(S): 1.) 18 gauge Temno core biopsy needle MEDICAL HISTORY : Renal calculi. SURGICAL HISTORY : hernia repair ENCOUNTER: Initial ACUITY: 1 day PAIN SCORE: 0/10 LOCATION: Bilateral abdomen A total of two core specimen(s) were obtained and sent to the laboratory for pathologic evaluation. PROCEDURE: 1. CT guided liver biopsy. 3. EKG and oximetry remained stable throughout the procedure. Prior to the procedure informed consent was obtained. Any appropriate prior imaging studies were rev iewed. Using automated exposure control and adjustment of the mA and/or kV according to patient size, radiat ion dose was kept as low as reasonably achievable to obtain optimal diagnostic quality images. DICOM format image data is available electronically for review and comparison. The site was prepped in a sterile fashion. Full sterile technique was used, including cap, mask, randall rile gloves and gown and a large sterile sheet. Hand hygiene and 2% chlorhexidine and/or betadine/al cohol prep was utilized per protocol for cutaneous antisepsis. The skin and subcutaneous tissues wer e infiltrated with local anesthetic solution. With CT guidance the liver was localized. The right lobe was targeted. Biopsy was performed using the prescribed needle as above. Adequate hemostasis was obtained with compression at the puncture site. Follow-up CT scan reveals no hemorrhage or acute abnormality. The patient tolerated the procedure well and there were no complications. The patient was returned to the Radiology Outpatient Unit in stable condition. CONCLUSION: Uncomplicated CT guided biopsy of the right lobe of the liver. Geovanny Rutledge MD on March 09, 2017 at 12:29 Board Certified Radiologist. This report was verified electronically.
[2017-03-09] MEDS ORDERED: LORazepam 2 MG/ML VIAL IV ONE ×2 (15:08→15:10)
[2017-03-09] MEDS ORDERED: MEPERIDINE HCL 25 MG/ML VIAL IV ONE (15:15)
[2017-03-09] MEDS ORDERED: SODIUM CHLORIDE 2 ML FLUSH BID IV FLUSH SCH (21:00)
[2017-03-10] MEDS ORDERED: HALO5P IM (14:14)
[2017-03-10] MEDS ORDERED: FOSP1INJ5 IV (14:14)
[2017-03-10] MEDS ORDERED: LACO100 PO (14:14)
[2017-03-10] MEDS ORDERED: LORA-474 PO (14:14)
[2017-03-10] MEDS ORDERED: CHLO25CA9 PO (14:51)
== END 2017-03-09 16:00 | disposition home or self-care (01) ==
LOC: HRAD 08:43 → HRIP 08:44 → HRAD 16:00
DX: K76.0 Fatty (change of) liver, not elsewhere classified (principal); I10 Essential (primary) hypertension; K75.4 Autoimmune hepatitis; N41.9 Inflammatory disease of prostate, unspecified; Z87.442 Personal history of urinary calculi
CPT/HCPCS: 47000; 77012; 88307; 88313; J2060; J2175; J3010; J7030

== ENCOUNTER 2017-03-09 16:07 | Inpatient (IN) | payer OTHER ==
[~2017-03-09] VITALS: Ht 182.9 cm; Wt 91.0 kg
[~2017-03-09 16:07] MED LIST changes: +DIAZ5 PO; +PRED10 PO
[2017-03-09 16:11] VITALS: BP 166/77; PULSE 152; RESP 24; O2SAT 95
[2017-03-09] MEDS ORDERED: LORazepam 2 MG/ML VIAL ONE (16:18)
[2017-03-09 16:23] VITALS: BP 166/77; PULSE 118; RESP 22; TEMP 98; O2SAT 95
[2017-03-09] MEDS ORDERED: LORazepam 2 MG/ML VIAL IV PUSH ONE (16:30)
[2017-03-09 16:58] LABS: AUTOMATED NEUTROPHIL # 7.2 TH/MM3 (1.8-7.7); BASOPHIL # 0.1 TH/MM3 (0-0.2); BASOPHIL % 0.6 % (0.0-2.0); EOSINOPHIL # 0.1 TH/MM3 (0-0.4); EOSINOPHIL % 0.6 % (0.0-4.0); HEMATOCRIT 43.3 % (39.0-51.0); HEMOGLOBIN 14.6 GM/DL (13.0-17.0); LYMPH % 17.7 % (9.0-44.0); LYMPHOCYTE # 1.7 TH/MM3 (1.0-4.8); MEAN CELL VOLUME 84.2 FL (80.0-100.0); MEAN CORPUSCULAR HEMOGLOBIN 28.3 PG (27.0-34.0); MEAN CORPUSCULAR HGB CONC 33.7 % (32.0-36.0); MEAN PLATELET VOLUME 7.5 FL (7.0-11.0); MONO % 8.3 % (0.0-8.0); MONOCYTE # 0.8 TH/MM3 (0-0.9); NEUT % 72.8 % (16.0-70.0); PLATELET COUNT 269 TH/MM3 (150-450); RED BLOOD COUNT 5.14 MIL/MM3 (4.50-5.90); RED CELL DISTRIBUTION WIDTH 13.8 % (11.6-17.2); WHITE BLOOD COUNT 9.9 TH/MM3 (4.0-11.0)
--- NOTE | 2017-03-09 17:04 | PD ---
HPI Chief Complaint: Medical Clearance Time Seen by Provider: 16:24 Travel History International Travel<30 days: No Contact w/Intl Traveler<30days: No Traveled to known affect area: No History of Present Illness HPI This is a 61-year-old gentleman with history of polymyalgia rheumatica, elevated transaminase is currently being worked up, who presents from the road. After having an outpatient liver biopsy. There was a Lisandra Lisset called overhead for this patient when he was noted to have severe tonic-clonic activity. According to the patient's , he has had this since December. According to her this is increased in frequency and intensity over the last several weeks. She reports that they have not had a formal EEG. They also have not had a diagnosis as to what causes these tonic-clonic activities. According to the there is recommendation that he be sent to the [facility] for further workup. The patient is able to talk to me when he is having these episodes but was noted to be extremely tachycardic while having these episodes. 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) Psychiatric: No Reproductive: No Respiratory: No Immunizations Current: Yes Migraines: No Radiation Therapy: No Renal Failure: No Seizures: No Sickle Cell Disease: No Sleep Apnea: No Thyroid Disease: No Ulcer: No Past Surgical History Abdominal Surgery: Yes (HERNIA REPAIR) AICD: No Arteriovenous Shunt: No Cardiac Surgery: No Ear Surgery: No Endocrine Surgery: No Eye Surgery: No Genitourinary Surgery: No Gynecologic Surgery: No Insulin Pump: No Joint Replacement: Yes Neurologic Surgery: Yes (LP) Oral Surgery: No Pacemaker: No Thoracic Surgery: No Other Surgery: Yes Social History Alcohol Use: Yes (OCC) Tobacco Use: Yes (OCC CIGAR) Substance Use: No Allergies-Medications (Allergen,Severity, Reaction): Coded Allergies: No Known Allergies (Verified Allergy, Unknown, 03/09/17) Reported Meds & Prescriptions Reported Meds & Active Scripts Active Reported Valium (Diazepam) 5 Mg Tab 5 Mg PO TID PRN Prednisone 10 Mg Tab 10 Mg PO BID Review of Systems Except as stated in HPI: all other systems reviewed are Neg General / Constitutional: No: Fever, Chills HENT: No: Headaches, Lightheadedness, Neck Pain Cardiovascular: No: Chest Pain or Discomfort, Palpitations, Irregular Rhythm Respiratory: No: Cough, Shortness of Breath Gastrointestinal: No: Nausea, Vomiting, Abdominal Pain Genitourinary: No: Urgency, Frequency, Dysuria Musculoskeletal: No: Myalgias, Weakness, Pain Skin: No Rash, No Lesions Neurologic: Positive: Other (tonic-clonic activity, generalized), No: Weakness , Dizziness, Headache, Change in Mentation Physical Exam Narrative GENERAL: Well-developed well-nourished male who had a generalized tonic-clonic activity. The patient was able to converse while having this. SKIN: Focused skin assessment warm/dry. HEAD: Atraumatic. Normocephalic. EYES: Pupils equal and round. No scleral icterus. No injection or drainage. ENT: No nasal bleeding or discharge. Mucous membranes pink and moist. NECK: Trachea midline. Supple. CARDIOVASCULAR: Tachycardic in the 140s.No murmur appreciated. RESPIRATORY: No accessory muscle use. Clear to auscultation. Breath sounds equal bilaterally. GASTROINTESTINAL: Abdomen soft, non-tender, nondistended. Hepatic and splenic margins not palpable. MUSCULOSKELETAL: No obvious deformities. No clubbing. No cyanosis. No edema. NEUROLOGICAL: Awake and able to answer questions. The patient had tonic-clonic jerking of his upper and lower extremities bilaterally. Data Data Last Documented VS Vital Signs Date Time Temp Pulse Resp B/P (MAP) Pulse Ox O2 Delivery O2 Flow Rate FiO2 03/09/17 16:23 98.0 118 22 166/77 (106) 95 Nasal Cannula 2.00 Orders Orders Lorazepam Inj (Ativan Inj) (03/09/17 16:18) Complete Blood Count With Diff (03/09/17 16:24) Comprehensive Metabolic Panel (03/09/17 16:24) Lorazepam Inj (Ativan Inj) (03/09/17 16:30) Portable Eeg (03/09/17 ) Admit To Inpatient (03/09/17 ) Vital Signs (Adult) Q4H (03/09/17 17:23) Activity Oob With Assistance (03/09/17 17:23) Suction Roller / Telemetry .CONTINUOUS (03/09/17 17:23) Diet Heart Healthy (03/09/17 Dinner) Sodium Chloride 0.9% Flush (Ns Flush) (03/09/17 17:30) Sodium Chloride 0.9% Flush (Ns Flush) (03/09/17 21:00) Ondansetron Inj (Zofran Inj) (03/09/17 17:30) Basic Metabolic Panel (Bmp) (03/10/17 06:00) Complete Blood Count With Diff (03/10/17 06:00) Chest, Single Ap (03/09/17 17:23) Electrocardiogram (03/09/17 17:23) Pt Request For Service (03/09/17 17:23) Scd Bilateral/Knee High SARA.BID (03/09/17 17:23) Naloxone Inj (Narcan Inj) (03/09/17 17:30) Magnesium Hydroxide Liq (Milk Of Magnesi (03/09/17 17:30) Inpatient Certification (03/09/17 ) Consult Neurology (03/09/17 ) Alcohol Withdrawal Asmt-Ciwa [id number] (03/09/17 17:26) Folic Acid (Folate) (03/10/17 09:00) Thiamine (Vit B1) (Vitamin B1) (03/10/17 09:00) Multivitamins-Minerals Therap (Theragran (03/10/17 09:00) Consult Cm-Etoh Abuse Dc Plan (03/09/17 ) Flumazenil Inj (Romazicon Inj) (03/09/17 17:30) Lorazepam (Ativan) (03/09/17 17:30) Lorazepam Inj (Ativan Inj) (03/09/17 17:30) Lorazepam (Ativan) (03/09/17 17:30) Lorazepam Inj (Ativan Inj) (03/09/17 17:30) Lorazepam Inj (Ativan Inj) (03/09/17 17:30) Lorazepam Inj (Ativan Inj) (03/09/17 17:30) Haloperidol Inj (Haldol Inj) (03/09/17 17:30) Scd Bilateral/Knee High SARA.BID (03/09/17 17:26) Chlordiazepoxide (Librium) (03/09/17 18:00) Thyroid Stimulating Hormone (03/09/17 17:29) Free Thyroxine (T4) (03/09/17 17:29) Rapid Plasma Regin (Rpr) W Ttr (03/09/17 17:29) Vitamin B12 (03/09/17 17:29) Folate, Serum (03/09/17 17:29) Ammonia (03/09/17 17:29) 1/2 Ns + Kcl 20 Meq Inj (2 Ns + Kcl 20 (03/09/17 18:00) (Hub Use Only)Inp Phy Cons/Ref (03/09/17 ) Drug Screen, Random Urine (03/09/17 17:31) Diazepam (Valium) (03/09/17 17:45) Prednisone (Deltasone) (03/09/17 21:00) Ct Brain W/O Iv Contrast(Rout) (03/09/17 ) Labs Laboratory Tests Test 03/09/17 16:25 White Blood Count 9.9 TH/MM3 Red Blood Count 5.14 MIL/MM3 Hemoglobin 14.6 GM/DL Hematocrit 43.3 % Mean Corpuscular Volume 84.2 FL Mean Corpuscular Hemoglobin 28.3 PG Mean Corpuscular Hemoglobin Concent 33.7 % Red Cell Distribution Width 13.8 % Platelet Count 269 TH/MM3 Mean Platelet Volume 7.5 FL Neutrophils (%) (Auto) 72.8 % Lymphocytes (%) (Auto) 17.7 % Monocytes (%) (Auto) 8.3 % Eosinophils (%) (Auto) 0.6 % Basophils (%) (Auto) 0.6 % Neutrophils # (Auto) 7.2 TH/MM3 Lymphocytes # (Auto) 1.7 TH/MM3 Monocytes # (Auto) 0.8 TH/MM3 Eosinophils # (Auto) 0.1 TH/MM3 Basophils # (Auto) 0.1 TH/MM3 CBC Comment DIFF FINAL Differential Comment Blood Urea Nitrogen 16 MG/DL Creatinine 1.00 MG/DL Random Glucose 101 MG/DL Total Protein 7.6 GM/DL Albumin 3.4 GM/DL Calcium Level 8.9 MG/DL Alkaline Phosphatase 130 U/L Aspartate Amino Transf (AST/SGOT) 22 U/L Alanine Aminotransferase (ALT/SGPT) 75 U/L Total Bilirubin 0.4 MG/DL Sodium Level 142 MEQ/L Potassium Level 4.2 MEQ/L Chloride Level 107 MEQ/L Carbon Dioxide Level 28.1 MEQ/L Anion Gap 7 MEQ/L Estimat Glomerular Filtration Rate 76 ML/MIN MDM Medical Decision Making Medical Screen Exam Complete: Yes Emergency Medical Condition: Yes Differential Diagnosis Neuromuscular spasticity versus atypical seizure versus metabolic derangement Narrative Course 61-year-old male with a history of polymyalgia rheumatica, questionable autoimmune hepatitis, [facility] for generalized tonic clonic activity. The patient was getting a liver biopsy when he started waking up from anesthesia and had severe tonic-clonic activity. According to the it's his been increasing in severity and intensity. The patient had been given Ativan up in a ropu. When he arrived here he was tachycardic in the 150s and was having the generalized tonic-clonic activity. He was able to converse with me. A stat EEG was ordered. The patient had episodes throughout the EEG noted. Case was discussed with Dr. Robert Hilton , for healthcare hospitalist who knows the patient well. Initially we question whether or not we could transfer him to a different facility that has video EEG. Given his tachycardia and presenting symptoms, I am doubtful we will be able to transfer him. Dr. Hilton agreed to admit the patient is service. Diagnosis Primary Impression: generalized tonic-clonic activity, seizure versus pseudoseizure Additional Impressions: Tachycardia history of elevated transaminase. possible autoimmune history. Admitting Information Admitting Physician Requests: Observation Rocco North MD Mar 09, 2017 17:04
[2017-03-09 17:15] LABS: ALBUMIN 3.4 GM/DL (3.4-5.0); AST (GOT) 22 U/L (15-37); BICARBONATE 28.1 MEQ/L (21.0-32.0); BLOOD UREA NITROGEN 16 MG/DL (7-18); CALCIUM 8.9 MG/DL (8.5-10.1); CHLORIDE 107 MEQ/L (98-107); GLOMERULAR FILTRATION RATE 76 ML/MIN (>89); GLUCOSE,RANDOM 101 MG/DL (74-106); SODIUM (NA) 142 MEQ/L (136-145)
[2017-03-09 17:18] LABS: ALKALINE PHOSPHATASE 130 U/L (45-117); ALT (GPT) 75 U/L (12-78); TOTAL BILIRUBIN ADULT 0.4 MG/DL (0.2-1.0); TOTAL PROTEIN 7.6 GM/DL (6.4-8.2)
[2017-03-09] MEDS ORDERED: ONDANSETRON HCL 4 MG/2 ML VIAL IVP PRN (17:30)
[2017-03-09] MEDS ORDERED: NALOXONE HCL 0.4 MG/ML AMP IV PUSH PRN (17:30)
[2017-03-09] MEDS ORDERED: SODIUM CHLORIDE 0.9% FLUSH 10 ML FLUSH IV FLUSH PRN (17:30)
[2017-03-09] MEDS ORDERED: LORazepam 2 MG/ML VIAL IV PUSH PRN ×4 (17:30)
[2017-03-09] MEDS ORDERED: LORazepam 2 MG TAB PO PRN (17:30)
[2017-03-09] MEDS ORDERED: HALOPERIDOL LACTATE 5 MG/ML AMP IM PRN (17:30)
[2017-03-09] MEDS ORDERED: MAGNESIUM HYDROXIDE SUSP 30 ML CUP PO PRN (17:30)
[2017-03-09] MEDS ORDERED: LORazepam 1 MG TAB PO PRN (17:30)
[2017-03-09] MEDS ORDERED: FLUMAZENIL 0.5 MG/5 ML VIAL IV PUSH PRN (17:30)
[2017-03-09 17:45] VITALS: BP 153/84; PULSE 110; RESP 22; O2SAT 98
[2017-03-09] MEDS ORDERED: DIAZEPAM 5 MG TAB PO PRN (17:45)
--- NOTE | 2017-03-09 18:08 | RADRPT ---
EXAM DATE/TIME: 03/09/2017 17:51 [facility] COMPARISON: CT BRAIN W/O CONTRAST, January 05, 2017, 8:12. INDICATIONS : Worsening tremors today. RADIATION DOSE: 35.69 CTDIvol (mGy) MEDICAL HISTORY : auto immune hepatitis SURGICAL HISTORY : None. ENCOUNTER: Initial ACUITY: 1 day PAIN SCALE: Non-responsive LOCATION: Bilateral head TECHNIQUE: Multiple contiguous axial images were obtained of the head. Using automated exposure control and adj ustment of the mA and/or kV according to patient size, radiation dose was kept as low as reasonably a chievable to obtain optimal diagnostic quality images. DICOM format image data is available electro nically for review and comparison. FINDINGS: CEREBRUM: The ventricles are normal for age. No evidence of midline shift, mass lesion, hemorrhage or acute in farction. No extra-axial fluid collections are seen. POSTERIOR FOSSA: The cerebellum and brainstem are intact. The 4th ventricle is midline. The cerebellopontine angle i s unremarkable. EXTRACRANIAL: The visualized portion of the orbits is intact. SKULL: The calvaria is intact. No evidence of skull fracture. CONCLUSION: No acute disease. Javed Hawkins Jr., MD on March 09, 2017 at 18:04 Board Certified Radiologist. This report was verified electronically.
--- NOTE | 2017-03-09 18:17 | RADRPT ---
EXAM DATE/TIME: 03/09/2017 18:03 [facility] COMPARISON: CHEST SINGLE AP, January 13, 2017, 8:43. INDICATIONS : Cough and weakness. MEDICAL HISTORY : Gastroesophageal reflux disease. Hernia. Auto immune hepatitis. SURGICAL HISTORY : Hernia repair ENCOUNTER: Initial ACUITY: 1 day PAIN SCORE: Non-responsive. LOCATION: Bilateral chest FINDINGS: A single view of the chest demonstrates the lungs to be symmetrically aerated without evidence of mas s, infiltrate or effusion. The cardiomediastinal contours are unremarkable. Osseous structures are intact. CONCLUSION: No acute disease. Javed Hawkins Jr., MD on March 09, 2017 at 18:14 Board Certified Radiologist. This report was verified electronically.
[2017-03-09] MEDS: chlordiazePOXIDE 25 MG CAP PO SCH (18:21)
[2017-03-09] MEDS: 1/2 NS + KCL 20 MEQ INJ 1,000 ML IV SCH (18:52)
[2017-03-09 19:17] VITALS: BP 142/89; PULSE 88; RESP 16; O2SAT 96
--- NOTE | 2017-03-09 19:21 | HHI.HP ---
HPI Service [facility] Hospitalists Primary Care Physician Jamey Ventura MD Admission Diagnosis tonic/clonic activity, seizure vs pseudo seizure, hx of hepatitis Travel History International Travel<30 Days: No Contact w/Intl Traveler <30 Da: No Traveled to Known Affected Are: No Past Family Social History Allergies: Coded Allergies: No Known Allergies (Verified Allergy, Unknown, 03/09/17) Physical Exam Vital Signs Vital Signs Date Time Temp Pulse Resp B/P (MAP) Pulse Ox O2 Delivery O2 Flow Rate FiO2 03/09/17 19:17 88 16 142/89 (106) 96 Room Air 03/09/17 17:45 110 22 153/84 (107) 98 Nasal Cannula 2.00 03/09/17 16:23 98.0 118 22 166/77 (106) 95 Nasal Cannula 2.00 03/09/17 16:15 144 24 03/09/17 16:11 152 24 166/77 (106) 95 Physical Exam GENERAL: This is a well-nourished, well-developed patient, in no apparent distress. SKIN: No rashes, ecchymoses or lesions. Cool and dry. HEAD: Atraumatic. Normocephalic. No temporal or scalp tenderness. EYES: Pupils equal round and reactive. Extraocular motions intact. No scleral icterus. No injection or drainage. ENT: Nose without bleeding, purulent drainage or septal hematoma. Throat without erythema, tonsillar hypertrophy or exudate. Uvula midline. Airway patent. NECK: Trachea midline. No JVD or lymphadenopathy. Supple, nontender, no meningeal signs. CARDIOVASCULAR: Regular rate and rhythm without murmurs, gallops, or rubs. RESPIRATORY: Clear to auscultation. Breath sounds equal bilaterally. No wheezes , rales, or rhonchi. GASTROINTESTINAL: Abdomen soft, non-tender, nondistended. No hepato-splenomegaly , or palpable masses. No guarding. MUSCULOSKELETAL: Extremities without clubbing, cyanosis, or edema. No joint tenderness, effusion, or edema noted. No calf tenderness. Negative Homans sign bilaterally. NEUROLOGICAL: Awake and alert. Cranial nerves II through XII intact. Motor and sensory grossly within normal limits. Five out of 5 muscle strength in all muscle groups. Normal speech. Laboratory Laboratory Tests Test 03/09/17 16:25 White Blood Count 9.9 Red Blood Count 5.14 Hemoglobin 14.6 Hematocrit 43.3 Mean Corpuscular Volume 84.2 Mean Corpuscular Hemoglobin 28.3 Mean Corpuscular Hemoglobin Concent 33.7 Red Cell Distribution Width 13.8 Platelet Count 269 Mean Platelet Volume 7.5 Neutrophils (%) (Auto) 72.8 Lymphocytes (%) (Auto) 17.7 Monocytes (%) (Auto) 8.3 Eosinophils (%) (Auto) 0.6 Basophils (%) (Auto) 0.6 Neutrophils # (Auto) 7.2 Lymphocytes # (Auto) 1.7 Monocytes # (Auto) 0.8 Eosinophils # (Auto) 0.1 Basophils # (Auto) 0.1 CBC Comment DIFF FINAL Differential Comment Blood Urea Nitrogen 16 Creatinine 1.00 Random Glucose 101 Total Protein 7.6 Albumin 3.4 Calcium Level 8.9 Alkaline Phosphatase 130 Aspartate Amino Transf (AST/SGOT) 22 Alanine Aminotransferase (ALT/SGPT) 75 Total Bilirubin 0.4 Sodium Level 142 Potassium Level 4.2 Chloride Level 107 Carbon Dioxide Level 28.1 Anion Gap 7 Estimat Glomerular Filtration Rate 76 Result Diagram: 03/09/17 1625 03/09/17 1625 Caprini VTE Risk Assessment Caprini Risk Assessment Model Point Value = 1 Point Value = 2 Point Value = 3 Point Value = 5 Age 41-60 Minor surgery BMI > 25 kg/m2 Swollen legs Varicose veins or History of unexplained or recurrent spontaneous Oral contraceptives or hormone replacement Sepsis (< 1 month) Serious lung disease, including pneumonia (< 1 month) Abnormal pulmonary function Acute myocardial infarction Congestive heart failure (< 1 month) History of inflammatory bowel disease Medical patient at bed rest Age 61-74 Arthroscopic surgery Major open surgery (> 45 min) Laparoscopic surgery (> 45 min) Malignancy Confined to bed (> 72 hours) Immobilizing plaster cast Central venous access Age >= 75 History of VTE Family history of VTE Factor V Leiden Prothrombin [id number] Lupus anticoagulant Anticardiolipin antibodies Elevated serum homocysteine Heparin-induced thrombocytopenia Other congenital or acquired thrombophilia Stroke (< 1 month) Elective arthroplasty Hip, pelvis, or leg fracture Acute spinal cord injury (< 1 month) Prophylaxis Regimen Total Risk Factor Score Risk Level Prophylaxis Regimen 0-1 Low Early ambulation 2 Moderate Order ONE of the following: *Sequential Compression Device (SCD) *Heparin 5000 units SQ BID 3-4 Higher Order ONE of the following medications: *Heparin 5000 units SQ TID *Enoxaparin/Lovenox 40 mg SQ daily (WT < 150 kg, CrCl > 30 mL/min) *Enoxaparin/Lovenox 30 mg SQ daily (WT < 150 kg, CrCl > 10-29 mL/min) *Enoxaparin/Lovenox 30 mg SQ BID (WT < 150 kg, CrCl > 30 mL/min) AND/OR *Sequential Compression Device (SCD) 5 or more Highest Order ONE of the following medications: *Heparin 5000 units SQ TID (Preferred with Epidurals) *Enoxaparin/Lovenox 40 mg SQ daily (WT < 150 kg, CrCl > 30 mL/min) *Enoxaparin/Lovenox 30 mg SQ daily (WT < 150 kg, CrCl > 10-29 mL/min) *Enoxaparin/Lovenox 30 mg SQ BID (WT < 150 kg, CrCl > 30 mL/min) AND *Sequential Compression Device (SCD) Physician Certification Order for Inpatient Services The services are ordered in accordance with Medicare regulations or non- Medicare payer requirements, as applicable. In the case of services not specified as inpatient-only, they are appropriately provided as inpatient services in accordance with the 2-midnight benchmark. days is the estimated time the patient will need to remain in the hospital, assuming treatment plan goals are met and no additional complications. Robert Hilton DO Mar 09, 2017 19:21
--- NOTE | 2017-03-09 20:47 | MG ---
cc: BECKA SWANN M.D. Lab No: Date: 03/09/2017 Age: Sex: M Race: ELECTROENCEPHALOGRAM NUMBER [id number] A stat electroencephalogram. Status post Ativan. Helicat. Tonic clonic activity. DESCRIPTION A 11 Hz 50 microvolts symmetrical posterior and diffuse rhythm is seen. The recording overall is synchronous and symmetrical. I do not see any hemisphere asymmetries or epileptiform or seizure activity. Some bitemporal muscle artifact is noted then at epoch 65. There appears to be where we note his left arm tremors but what looks like small polyspike or spike activity over the right temporal head region and the patient appears to have an electroencephalographic seizure with phase reversing over T4 with a right mid temporal seizure focus which lasts approximately 20 seconds and then another seizure similar lasting approximately 20 seconds and then a third electroencephalographic seizure after that, and that one lasts prolonged time, several minutes long and has some near angle over to the left temporal head region. And then another seizure is noted. IMPRESSION This appears to be a right temporal seizure focus with prolonged seizure on this patient and what appears to be status epilepticus. Clinical correlation is needed. MD LÓPEZ Buck/KK /6:33 PM /8:34 PM
[2017-03-09] MEDS: predniSONE 10 MG TAB PO SCH (22:17)
[2017-03-09] MEDS: SODIUM CHLORIDE 0.9% FLUSH 10 ML FLUSH IV FLUSH SCH (22:18)
[2017-03-09 22:31] LABS: FREE T4 0.95 NG/DL (0.76-1.46)
[2017-03-09 22:32] LABS: FOLATE GREATER THAN 20.0 NG/ML (3.1-17.5)
[2017-03-09 22:36] VITALS: PULSE 73
[2017-03-09 22:37] VITALS: BP 131/74; PULSE 78; RESP 16; TEMP 98.1; O2SAT 95
[2017-03-09] MEDS ORDERED: FOSPHENYTOIN INJ 1,000 MGPE in SODIUM CHLORIDE 0.9% INJ 50 ML IV STA (23:10)
[2017-03-10 04:00] VITALS: BP 121/73; PULSE 73; PULSE 83; RESP 18; TEMP 98.5; O2SAT 95
[2017-03-10 05:20] LABS: AUTOMATED NEUTROPHIL # 9.6 TH/MM3 (1.8-7.7); BASOPHIL % 0.3 % (0.0-2.0); EOSINOPHIL % 0.2 % (0.0-4.0); HEMATOCRIT 41.2 % (39.0-51.0); HEMOGLOBIN 13.8 GM/DL (13.0-17.0); LYMPH % 6.6 % (9.0-44.0); LYMPHOCYTE # 0.7 TH/MM3 (1.0-4.8); MEAN CELL VOLUME 84.3 FL (80.0-100.0); MEAN CORPUSCULAR HEMOGLOBIN 28.3 PG (27.0-34.0); MEAN CORPUSCULAR HGB CONC 33.6 % (32.0-36.0); MEAN PLATELET VOLUME 7.2 FL (7.0-11.0); MONO % 4.3 % (0.0-8.0); MONOCYTE # 0.5 TH/MM3 (0-0.9); NEUT % 88.6 % (16.0-70.0); PLATELET COUNT 239 TH/MM3 (150-450); RED BLOOD COUNT 4.89 MIL/MM3 (4.50-5.90); WHITE BLOOD COUNT 10.9 TH/MM3 (4.0-11.0)
[2017-03-10] MEDS: 1/2 NS + KCL 20 MEQ INJ 1,000 ML IV SCH ×2 (05:21→13:33)
[2017-03-10 05:46] LABS: BICARBONATE 28.3 MEQ/L (21.0-32.0); CALCIUM 9.1 MG/DL (8.5-10.1); CREATININE 0.84 MG/DL (0.60-1.30)
[2017-03-10 05:47] LABS: PHENYTOIN (DILANTIN) 8.8 MCG/ML (10.0-20.0)
[2017-03-10] MEDS: FOSPHENYTOIN SODIUM 100 MG PE/2 ML VIAL IV SCH ×2 (06:24→14:39)
[2017-03-10] MEDS: SODIUM CHLORIDE 0.9% FLUSH 10 ML FLUSH IV FLUSH SCH (07:54)
[2017-03-10 07:55] VITALS: BP 129/77; PULSE 61; RESP 18; TEMP 97.5; O2SAT 95
[2017-03-10] MEDS ORDERED: MULTIVITAMINS/MINERALS THERAPEUTIC TAB PO SCH (09:00)
[2017-03-10] MEDS ORDERED: THIAMINE HCL 100 MG TAB PO SCH (09:00)
[2017-03-10] MEDS ORDERED: FOLIC ACID 1 MG TAB PO SCH (09:00)
[2017-03-10] MEDS ORDERED: LORazepam 2 MG/ML VIAL IV PUSH PRN ×2 (09:00→09:15)
[2017-03-10] MEDS ORDERED: FOSPHENYTOIN SODIUM 100 MG PE/2 ML VIAL IV STA (09:07)
[2017-03-10] MEDS ORDERED: FOSPHENYTOIN INJ 300 MGPE in SODIUM CHLORIDE 0.9% INJ 50 ML IV STA (09:26)
--- NOTE | 2017-03-10 09:42 | HHI.HP ---
HPI Service [facility] Hospitalists Primary Care Physician Jamey Ventura MD Admission Diagnosis tonic/clonic activity, seizure vs pseudo seizure, hx of hepatitis Chief Complaint: Tonic-clonic activity Travel History International Travel<30 Days: No Contact w/Intl Traveler <30 Da: No Traveled to Known Affected Are: No History of Present Illness Mr. Peace is a pleasant 61 y/o WM who had [place] [facility] [place]17 after he presented after an episode of syncope/ collapse. At that time he had initially reported a 2 week hx of progressive abdomen pains, general weakness, fatigue, subjective fever/chills, night sweats and a recent 25 pound weight loss (unintentional). He had also had noted fevers/ chills/rigors during that admission. Pt was admitted to ICU from the ED. Initial workup by ED/ICU/Neuro included LP,MRI Cervical/Thoracic/Lumbar spine, CT Abd/pelvis x 2, and liver u/s. They were initially concerned about [place]. [place] due to previous recent influenza shot. At that time there was no evidence for meningitis or GBS. General Surg evaluated during that admission due to his complaints of abd pain and he had had a previous laparoscopic bilateral inguinal hernia repair with mesh by Dr. Cueva about 1 year prior. GS did not feel that the mesh is a likely cause for the pain/fevers/weight loss etc. 2D echo was essential nml with no noted vegetations. All blood cx and lumbar puncture with no growth. Pt was seen by ID during that admission as well and no specific infectious etiology was found. GI was involved in the case as the pts LFTs were noted to be elevated. He had Liver US (01/05) which noted hepatosplenomegaly, heterogeneous echotexture of the liver but no focal mass seen, and no significant biliary ductal dilation identified. MRCP (01/12) noted 3mm stone in GB, no ductal dilation. It was proposed that he may have passed a biliary stone. He had labs to assess for autoimmune/inflammatory cause for elevated LFTs. He had a noted elevated Sed rate of 81 and CRP 17. Hepatitis panel negative, JOSE (-), AMA (P), ASMA (-), EBV consistent with past infection, HIV (-), CMV (-), Iron saturation 16, Fe 464, Ceruloplasmin (-), Alpha 1 Antitrypsin (-). Patient denied previous hx of liver dz, denies heavy or daily alcohol intake. Outpt repeat labs in 01/2017 noted a positive ASMA of 41. Pt was sent for a liver biopsy to assess for possible autoimmune hepatitis. Pt had the liver biopsy on 03/09/17 and following the biopsy a [facility] called overhead and he was sent to the ED when he was noted to have severe tonic- clonic activity. During his previous admission in December pt started having rigors and "tremor" but pt was able to speak clearly and remembered all that happened during the episodes. The exact cause of the episode was not clear. Infectious/malignant/autoimmune processes were all in the differential but not proven. According to the pts this has increased in frequency and intensity over the last several weeks. The pt has seen Dr. Sellers as an outpt twice but states that at the last appt they were unable to get an EMG performed as the pt was shaking too much. They states that the pt has not had a formal EEG as of yet. They also have not had a diagnosis as to what causes these episodes. According to the there is recommendation that he be sent to the [facility] for further workup. In the ED the pt continued to have this tonic- clonic like activity but is able to talk through the entire episode but was noted to be extremely tachycardic while having these episodes. Pt was treated with Valium as an outpt and the pts states that he does have some slight improvement in the shaking with the Valium and is able to sleep. Pt was given Ativan in the ED with improvement but not resolution of the tremor-like activity. Pt had an EEG performed last night in the ED which did note some right temporal seizure focus with prolonged seizures. Pt was started on Cerebyx last night. The EEG was reviewed with Dr. Lemons this morning as well and he did witness some of the patients symptoms this morning. The pt was able to talk clearly through the entire episode but nursing staff reports that prior to this that he had an episode this morning of being unconscious and had noted tonic- clonic activity which improved with Ativan IV. Review of Systems Constitutional: DENIES: Fever, Chills Eyes: DENIES: Vision loss Ears, nose, mouth, throat: DENIES: Hearing loss Respiratory: DENIES: Cough, Shortness of breath Cardiovascular: DENIES: Chest pain, Palpitations, Lower Extremity Edema Gastrointestinal: DENIES: Abdominal pain, Diarrhea, Nausea, Vomiting Genitourinary: DENIES: Urinary frequency, Urinary incontinence, Hematuria Musculoskeletal: DENIES: Back pain, Neck pain Integumentary: DENIES: Rash Neurologic: COMPLAINS OF: Tremor, DENIES: Abnormal gait Psychiatric: DENIES: Confusion Past Family Social History Past Medical History Elevated LFTs Cholelithiasis Hx of Escalante's Esophagus Elevated blood pressure Prostatitis Past Surgical History Laparoscopic bilateral inguinal hernia repair with mesh on 12/31/15 Carpal tunnel release Multiple orthopedic surgeries Reported Medications Valium 5 Mg PO TID PRN Prednisone 10 Mg PO BID Allergies: Coded Allergies: No Known Allergies (Verified Allergy, Unknown, 03/09/17) Family History Noncontributory Social History No reported alcohol, tobacco or illicit drug use Physical Exam Vital Signs Vital Signs Date Time Temp Pulse Resp B/P (MAP) Pulse Ox O2 Delivery O2 Flow Rate FiO2 03/10/17 07:55 97.5 61 18 129/77 (94) 95 03/10/17 04:00 98.5 83 18 121/73 (89) 95 03/10/17 04:00 73 03/09/17 22:37 98.1 78 16 131/74 (93) 95 03/09/17 22:36 73 03/09/17 19:17 88 16 142/89 (106) 96 Room Air 03/09/17 17:45 110 22 153/84 (107) 98 Nasal Cannula 2.00 03/09/17 16:23 98.0 118 22 166/77 (106) 95 Nasal Cannula 2.00 03/09/17 16:15 144 24 03/09/17 16:11 152 24 166/77 (106) 95 Physical Exam GENERAL: This is a well-nourished, well-developed patient, in no apparent distress. HEENT: Atraumatic. Normocephalic. No temporal or scalp tenderness. No scleral icterus. Airway patent. NECK: Trachea midline, supple, nontender. CARDIO: Regular. RESP: CTA bilaterally. No wheezes, rales, or rhonchi. ABD: +BS, soft, non-tender, nondistended. EXT: Extremities without clubbing, cyanosis, or edema. NEURO: Awake and alert. The patient had tonic-clonic jerking of his upper and lower extremities bilaterally. Laboratory Laboratory Tests Test 03/09/17 16:25 03/09/17 21:57 03/10/17 04:53 White Blood Count 9.9 10.9 Red Blood Count 5.14 4.89 Hemoglobin 14.6 13.8 Hematocrit 43.3 41.2 Mean Corpuscular Volume 84.2 84.3 Mean Corpuscular Hemoglobin 28.3 28.3 Mean Corpuscular Hemoglobin Concent 33.7 33.6 Red Cell Distribution Width 13.8 14.0 Platelet Count 269 239 Mean Platelet Volume 7.5 7.2 Neutrophils (%) (Auto) 72.8 88.6 Lymphocytes (%) (Auto) 17.7 6.6 Monocytes (%) (Auto) 8.3 4.3 Eosinophils (%) (Auto) 0.6 0.2 Basophils (%) (Auto) 0.6 0.3 Neutrophils # (Auto) 7.2 9.6 Lymphocytes # (Auto) 1.7 0.7 Monocytes # (Auto) 0.8 0.5 Eosinophils # (Auto) 0.1 0.0 Basophils # (Auto) 0.1 0.0 CBC Comment DIFF FINAL DIFF FINAL Differential Comment Blood Urea Nitrogen 16 16 Creatinine 1.00 0.84 Random Glucose 101 113 Total Protein 7.6 Albumin 3.4 Calcium Level 8.9 9.1 Alkaline Phosphatase 130 Aspartate Amino Transf (AST/SGOT) 22 Alanine Aminotransferase (ALT/SGPT) 75 Total Bilirubin 0.4 Sodium Level 142 139 Potassium Level 4.2 4.4 Chloride Level 107 103 Carbon Dioxide Level 28.1 28.3 Anion Gap 7 8 Estimat Glomerular Filtration Rate 76 94 Vitamin B12 Level 655 Folate GREATER THAN 20.0 Free Thyroxine 0.95 Thyroid Stimulating Hormone 3rd Gen 2.460 Ammonia 28 Phenytoin (Dilantin) Level 8.8 Result Diagram: 03/10/17 0453 03/10/17 0453 Imaging Last Impressions Chest X-Ray 03/09/17 1723 Signed Impressions: Service Date/Time: Thursday, March 09, 2017 18:03 - CONCLUSION: No acute disease. Javed Hawkins Jr., MD Head CT 03/09/17 0000 Signed Impressions: Service Date/Time: Thursday, March 09, 2017 17:51 - CONCLUSION: No acute disease. MD Fabrice Perez Jr. VTE Risk Assessment Caprini VTE Risk Assessment: Mod/High Risk (score >= 2) Caprini Risk Assessment Model Point Value = 1 Point Value = 2 Point Value = 3 Point Value = 5 Age 41-60 Minor surgery BMI > 25 kg/m2 Swollen legs Varicose veins or History of unexplained or recurrent spontaneous Oral contraceptives or hormone replacement Sepsis (< 1 month) Serious lung disease, including pneumonia (< 1 month) Abnormal pulmonary function Acute myocardial infarction Congestive heart failure (< 1 month) History of inflammatory bowel disease Medical patient at bed rest Age 61-74 Arthroscopic surgery Major open surgery (> 45 min) Laparoscopic surgery (> 45 min) Malignancy Confined to bed (> 72 hours) Immobilizing plaster cast Central venous access Age >= 75 History of VTE Family history of VTE Factor V Leiden Prothrombin [id number] Lupus anticoagulant Anticardiolipin antibodies Elevated serum homocysteine Heparin-induced thrombocytopenia Other congenital or acquired thrombophilia Stroke (< 1 month) Elective arthroplasty Hip, pelvis, or leg fracture Acute spinal cord injury (< 1 month) Prophylaxis Regimen Total Risk Factor Score Risk Level Prophylaxis Regimen 0-1 Low Early ambulation 2 Moderate Order ONE of the following: *Sequential Compression Device (SCD) *Heparin 5000 units SQ BID 3-4 Higher Order ONE of the following medications: *Heparin 5000 units SQ TID *Enoxaparin/Lovenox 40 mg SQ daily (WT < 150 kg, CrCl > 30 mL/min) *Enoxaparin/Lovenox 30 mg SQ daily (WT < 150 kg, CrCl > 10-29 mL/min) *Enoxaparin/Lovenox 30 mg SQ BID (WT < 150 kg, CrCl > 30 mL/min) AND/OR *Sequential Compression Device (SCD) 5 or more Highest Order ONE of the following medications: *Heparin 5000 units SQ TID (Preferred with Epidurals) *Enoxaparin/Lovenox 40 mg SQ daily (WT < 150 kg, CrCl > 30 mL/min) *Enoxaparin/Lovenox 30 mg SQ daily (WT < 150 kg, CrCl > 10-29 mL/min) *Enoxaparin/Lovenox 30 mg SQ BID (WT < 150 kg, CrCl > 30 mL/min) AND *Sequential Compression Device (SCD) Assessment and Plan Problem List: (1) Tonic clonic convulsion 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 He had an extensive workup in 12/2016 as documented in the HPI. During his previous admission in December pt started having rigors and "tremor " but pt was able to speak clearly and remembered all that happened during the episodes. The exact cause of the episode was not clear. Infectious/malignant/ autoimmune processes were all in the differential but not proven. - Pt had the liver biopsy on 03/09/17 and following the biopsy a [facility] was called overhead and he was sent to the ED when he was noted to have severe tonic-clonic activity. According to the pts this has increased in frequency and intensity over the last several weeks. Pt was treated with Valium as an outpt and the pts states that he does have some slight improvement in the shaking with the Valium and is able to sleep. - The pt has seen Dr. Sellers as an outpt twice but have not had a diagnosis as to what causes these episodes. - In the ED the pt continued to have this tonic-clonic like activity but is able to talk through the entire episode but was noted to be extremely tachycardic while having these episodes. - Pt was given Ativan in the ED with improvement but not resolution of the tremor-like activity. - Initially Dr. Hilton recommended to the ED transferring the pt to a tertiary facility that has video EEG. Given his tachycardia and presenting symptoms, the ED did not feel that the pt would be able to be transferred. - Pt was started on IVF, Librium and Ativan PRN - Pt had an EEG performed last night in the ED which did note some right temporal seizure focus with prolonged seizures. - Pt was started on Cerebyx last night. - The EEG was reviewed with Dr. Lemons this morning as well and he did witness some of the patients symptoms this morning. The pt was able to talk clearly through the entire episode but nursing staff reports that prior to this that he had an episode this morning of being unconscious and had noted tonic-clonic activity which improved with Ativan IV. He felt that the pt likely has some pseudo- seizures superimposed on focal seizure activity. - Dr. Lemons is helping to make arrangements to transfer the pt to a [facility] that her EEG telemetry - Cont. Cerebyx and Ativan PRN - Supportive care Assessment and Plan Patient examined. Assessment and plan formulated with Giovana Shpeherd PA-C. I agree with the above. - I have had extensive conversation involving this case with Neurology both last night and this morning. - Pt continued to exhibit shaking of his limbs despite IV Cerebyx, scheduled Librium, and prn ativan/valium - Pt remains conversant throughout these episodes - NOT completely clear if EEG findings are due to artifact with movement - Pt needs emergent transfer to center that can provide video EEG for further clarification - Pt has been accepted at [facility]. Pt has been accepted to the service of Dr. Milner, Neurology - Case Management is verifying bed availability - Case d/w Case Management and transportation is currently being arranged. - Pt re-evaluated at 12:15PM. Pt resting comfortably without any tonic-clonic activity exhibited. Physician Certification 2 Midnight Certification Type: Admission for Inpatient Services Order for Inpatient Services The services are ordered in accordance with Medicare regulations or non- Medicare payer requirements, as applicable. In the case of services not specified as inpatient-only, they are appropriately provided as inpatient services in accordance with the 2-midnight benchmark. Estimated LOS (days): 2 2 days is the estimated time the patient will need to remain in the hospital, assuming treatment plan goals are met and no additional complications. Post-Hospital Plan: Not yet determined Giovana Shepherd Mar 10, 2017 09:42 Robert Hilton DO Mar 10, 2017 12:03
[2017-03-10] MEDS: chlordiazePOXIDE 25 MG CAP PO SCH ×2 (10:16→13:00)
[2017-03-10] MEDS: predniSONE 10 MG TAB PO SCH (10:16)
[2017-03-10] MEDS: LACOSAMIDE INJ 100 MG in SODIUM CHLORIDE 0.9% INJ 100 ML IV SCH ×3 (10:17→14:39)
[2017-03-10 11:29] VITALS: BP 138/79; PULSE 90; RESP 19; TEMP 98.7; O2SAT 94
[2017-03-10] MEDS ORDERED: HALO5P IM (14:14)
[2017-03-10] MEDS ORDERED: LORA-474 PO (14:14)
[2017-03-10] MEDS ORDERED: FOSP1INJ5 IV (14:14)
[2017-03-10] MEDS ORDERED: LACO100 PO (14:14)
--- NOTE | 2017-03-10 14:25 | MB ---
cc: CHUCK YOUSIF DATE OF CONSULTATION: 03/10/2017 REASON FOR CONSULTATION: Possible seizure. HISTORY OF PRESENT ILLNESS: Mr. Peace is a 61 year-old male who states that he received a flu vaccine sometime in November. He states about three weeks after this he began having jerking activity, mainly on the left side, also in general. During much of this he had remained conscious but at times he loses consciousness. He states that he has been having this almost continuously since December. He states following the flu shot he did develop fevers and headaches. He presented to the emergency room with generalized jerking activity. This is mainly over the left side but sometimes generalizes. During the activity he is able to talk and converse. The patient had an electroencephalogram done yesterday which revealed seizure activity in the right temporal area. I reviewed the electroencephalogram there is polyspike wave activity seen over the right yarsanism area with phase reversal which can last at times 10-20 seconds. Then there would be a break with no epileptiform activity. I felt this was not statis epilepticus but was consistent with frequent prolonged seizures from the right hemisphere. Therefore he was loaded with a gram of Cerebyx yesterday even. He states that he needs to have intermittent episodes of jerking activity. He has occasionally developed generalized tonic/clonic activity and this does respond to Ativan. He received 2 mg earlier which did resolve the episode. PAST MEDICAL HISTORY: He was recently admitted to the hospital in December with generalized weakness with fatigue as well as abdominal pain for a couple of months. At that time he had an elevated C-reactive protein at 17, lumbar puncture is preformed showing 2 white blood count, elevated total protein of 51. Normal cerebrospinal fluid, glucose, CT brain, old lacunar type stroke, otherwise negative. He was evaluated at that time as well with lumbar spine magnetic resonance imaging which is within normal limits. He had a thoracic MRI showing patent central canal, no vertebral compresses were identified. Small pleural effusions were identified, a cervical spine magnetic resonance imaging was obtained as well. The cord appeared normal. There is a subtle enhancement of the interspinal ligaments, C2-C3, C3-C4 and C4-C5 levels, thought to be due to ligamentous injury. As noted above the CT of the brain showed an old lacunar stroke, left external capsule. CURRENT MEDICATIONS: 1. Cerebyx 100 mg tablet q 8 hours. 2. Ativan 1 mg as needed 3. Folic acid 4. Thiamine 5. Prednisone 10 mg twice a day. 6. Librium 25 mg three times a day. 7. Valium 5 mg as needed anxiety. 8. Zofran as needed nausea, vomiting, as needed. 9. Milk of Magnesia as needed. 10. Mazicon as needed 11. Ativan as needed 12. Haldol as needed NEUROLOGIC EXAMINATION: VITAL SIGNS: Blood pressure 129/77, temperature 97.5, pulse 61, respiratory rate 18, higher cortical functions. Patient has continuous shaking activity bilaterally, more prominent on the left arm and left leg but also on the right. However, he is very conscious, he is able to follow commands. He can talk, he can tell me the month and year. Cranial nerves II through XII intact. HEAD, EYES, EARS, NOSE, AND THROAT: Pupils equal, round, reactive to light. Extraocular movements are normal. On motor examination as noted above he has generalized tremulous activity. It does not appear to be true tonic/clonic activity, this involves both upper and lower extremities but more prominent on the left. He has side to side head movements as well going left to right, left to right. Reflexes are 2+ symmetric. CT of the brain, no acute change is present. LABORATORY DATA: The white count is 10,900. Hemoglobin 13.8, hematocrit 41%, Platelet count 239,000. Sodium 129, Potassium 4.4. Chloride 103, co2 28.3, blood urea nitrogen 16, creatinine 0.84, glomerular filtration rate 94, glucose 113, Aspartate aminotransferase 22, ALT 75, alkaline phosphatase 130, pneumonia 28, B12 655, folic acid is greater then 20. Thyroid stimulating hormone 2.46, free T4 0.95. Phenytoin level this morning 8.8. Electroencephalogram is reviewed from yesterday, showing what appears to be epileptic activity in the right temporal lobe, area of phase reversal. I do not feel this is statis epilepticus but does indicate frequent epileptiform discharges which at time last up to 13-20 seconds. The differential includes true seizure activity, however, much of the examination at times does suggest pseudoseizures as well with a generalized jerking activities, preserved alertness. RECOMMENDATIONS: We will increase the phenytoin level to a therapeutic range. We will also add Vimpat. I would like to repeat the electroencephalogram today. Also consulted case management to evaluate for transfer to a facility where continuous electroencephalogram monitoring is available. Once stable I would like to get a brain MRI scan as well. MD HEIKE Vela/brannon /8:55 AM /9:07 AM
--- NOTE | 2017-03-10 14:44 | MG ---
cc: BECKA SWANN Lab No: [id number] Date: 03/09/2017 Age: Sex: M Race: ___ ADDENDUM The tech did note that the patient was rocking her head back and forth and as such, it is possible that the findings that looked epileptiform on the EEG in the right temporal head region may have been artifactual. Clinical correlation is needed. MD LÓPEZ Buck/ABA /12:42 PM /12:46 PM
--- NOTE | 2017-03-10 14:47 | EKG ---
Date Performed: 03/09/2017 Time Performed: 18:49:02 PTAGE: 61 years EKG: Sinus rhythm NORMAL ECG Since PREVIOUS TRACING , no significant change noted PREVIOUS TRACIN01/10/2017 11.26 DOCTOR: Celia Powell Interpretating Date/Time 03/10/2017 14:46:26
[2017-03-10] MEDS ORDERED: CHLO25CA9 PO (14:51)
--- NOTE | 2017-03-10 19:09 | MG ---
cc: BECKA SWANN Lab No: Date: 03/10/2017 Age: Sex: M Race: ELECTROENCEPHALOGRAM NUMBER [id number] INTRODUCTION Some jerking activity. MEDICATIONS 1. Cerebyx. 2. Librium. 3. Dilantin. 4. Seroquel. DESCRIPTION Diffuse beta rhythms are noted, 9-10 Hz, 60 microvolt diffuse rhythm is also seen to 50 microvolts. The recording overall is synchronous and symmetric. There was some question of right-sided seizure activity on aq prior EEG. I do not see any abnormality over that head region now. Hyperventilation is not performed. Photic stimulation is performed without significant posterior driving. IMPRESSION Normal EEG, no evidence for focal or diffuse abnormality. The patient was noted to be asleep through part of the recording and awake through other parts but did not reach stage II sleep. No right hemisphere, or right temporal lobe seizure activity or epileptiform activity was seen in this recording. MD LÓPEZ Buck/KK /6:28 PM /6:51 PM
== END 2017-03-10 16:14 | disposition short-term general hospital (02) | DRG 101 ==
LOC: NEPE 16:07 → NEDA 17:59 → NEDH 22:21
PROVIDERS: ADMIT Hospitalist; ATTEND Hospitalist
DX: G40.409 Other generalized epilepsy and epileptic syndromes, not intractable, without status epilepticus (principal); K22.70 Barrett's esophagus without dysplasia; M35.3 Polymyalgia rheumatica; R00.0 Tachycardia, unspecified; E78.00 Pure hypercholesterolemia, unspecified; K21.9 Gastro-esophageal reflux disease without esophagitis; M19.90 Unspecified osteoarthritis, unspecified site; R74.0 Nonspecific elevation of levels of transaminase and lactic acid dehydrogenase [LDH]; Z86.73 Personal history of transient ischemic attack (TIA), and cerebral infarction without residual deficits; Z72.0 Tobacco use
CPT/HCPCS: 70450; 71045; 80048; 80053; 80185; 82140; 82607; 82746; 84439; 84443; 85025; 86592; 93005; 95819; 96374; C9254; J2060; J7512; Q2009